=== PATIENT | male | born 1970 | race Caucasian/White ===

== ENCOUNTER → 2017-04-10 | Outpatient (CLI) | payer OTHER, SELFPAY | PROVIDERS: Visit Provider Family Medicine | DX: I10 Essential (primary) hypertension (principal) | CPT/HCPCS: 36415; 80053; 80061; 85025 ==

== ENCOUNTER → 2017-07-27 12:31 | Outpatient (CLI) | payer OTHER, SELFPAY ==
[2017-07-27 13:05] LABS: Hemoglobin A1C 6.2 % (0.0-7.0)
[2017-07-27 14:12] LABS: Blood Urea Nitrogen 14 mg/dL (7-18); Carbon Dioxide 26 mmol/L (21.0-32.0); Chloride 106 mmol/L (98-107); Chol/HDL Ratio 5.6 (1-3.5); Cholesterol 173 mg/dL (140-200); Creatinine,Serum 0.92 mg/dL (0.70-1.30); Estimated Glomerular Filt Rate 88 ml/min (>60); GFR (African American) 106 ML/MIN (>60); Glucose 85 mg/dL (74-106); HDL Cholesterol 31 mg/dL (27-67); LDL Cholesterol 100 mg/dL (0-130); Sodium 142 mmol/L (136-145); Triglycerides 210 mg/dL (30-200); VLDL Cholesterol 42 mg/dL (0-40)
== END ==
PROVIDERS: Visit Provider Family Medicine
DX: E11.9 Type 2 diabetes mellitus without complications (principal)
CPT/HCPCS: 36415; 80048; 80061; 83036

== ENCOUNTER → 2018-07-04 17:12 | Outpatient (CLI) | payer OTHER, SELFPAY ==
--- NOTE | 2018-07-04 17:30 | XR_ITS ---
EXAM: XR cervical spine 5V HISTORY: Neck pain ITS.REASON: CERVICALGIA ORDERING PHYSICIAN: Nas Huitron MD PATIENT AGE: 47 years COMPARISON: None FINDINGS: There is normal alignment. There is mild degenerative disc disease at C2-C3, C3-C4, C4-C5, C5-C6, and C6-C7 foraminal narrowing is present on the left at C3-C4 and C6-C7 and on the right at C3-C4. No fracture or dislocation. No lytic or blastic change. No evidence of cervical rib. IMPRESSION: Multilevel cervical spondylosis with degenerative disc disease and foraminal narrowing
== END ==
PROVIDERS: PCP Family Medicine; Visit Provider Family Medicine
DX: M54.2 Cervicalgia (principal)
CPT/HCPCS: 72050

== ENCOUNTER 2018-07-22 17:30 | Outpatient (RCR) | payer OTHER, SELFPAY ==
--- NOTE | 2018-07-14 17:49 | HMH.PTOPEV ---
PT Outpatient Evaluation Rehab PT Outpatient Evaluation Start: 07/14/18 17:23 Freq: Status: Active Protocol: Document 07/14/18 17:23 MAYAGENTRY (Rec: 07/14/18 17:48 SHUN [id number]) Electronically Signed By Owen Rueda, PT 07/14/18 17:23 Outpatient Therapy Subjective History Subjective History This is the initial Physical THerapy evaluation for Tang Corrigan. Pt is a 47 y /o male referred to PT for c/o cervical pain and SALAMANCA's. Pt reports insidious onset of pain ~ 6-7 weeks ago in sub- occipital area. Pt reports 3 rounds of prednisone packs which helped with pain, but pain returned 2-3 days s/p coming off medicine. Pt reports Ibuprofen helps w/ pain. Chief Complaint Pain Stiff Symptom Type Sharp Burning Symptoms Relieved By OTC Meds Prescription Meds Symptoms Aggravated By Physical Activity Lifting Prior Functional Limitations None Current Functional Limitations Reaching Lifting Recreation Activity Symptom Description Intermittent Level of pain today (0-10) 0 Pain scale - at its best (0-10) 0 Pain scale - at its worst (0-10) 8 Cervical Eval Palpation Cervical Muscles R Suboccipital L Suboccipital Cervical/Thoracic Palpation Findings Tenderness Trigger Point Muscle Guarding Passive Joint Mobility Cervical PIVM Dec: R C2/3 R C3/4 R C5/6 R C6/7 AROM Cervical Spine Extension Active Range of 45 Motion (degrees) Cervical Spine Flexion Active Range of 50 Motion (degrees) Cervical Spine Right Lateral Flexion 35 Active Range of Motion (degrees) Cervical Spine Left Lateral Flexion 35 Active Range of Motion (degrees) Cervical Spine Right Rotation Active 70 Range of Motion (degrees) Cervical Spine Left Rotation Active 70 Range of Motion (degrees) MMT Bilateral Deltoid (C5) 5 Normal Biceps Brachii Strength Grade 5 Normal Wrist Extension Strength Grade 5 Normal Triceps Brach
== END 2018-07-22 17:35 | disposition home or self-care (01) ==
LOC: PT 17:30
PROVIDERS: Visit Provider Family Medicine
DX: M54.2 Cervicalgia (principal)
CPT/HCPCS: 97010; 97012; 97014; 97110; 97140; 97163; G0283

== ENCOUNTER → 2018-10-24 08:24 | Outpatient (CLI) | payer SELFPAY ==
--- NOTE | 2018-10-24 08:53 | CT_ITS ---
CT heart w calcium score INDICATION: Current smoker ITS.REASON: z ORDERING PHYSICIAN: Beka Snow MD PATIENT AGE: 48 years COMPARISON: None TECHNIQUE: Contrast Used:None Oral Contrast: None Axial images were obtained. Sagittal and coronal reformatted images are reviewed as well. All CT scans at the facility use one or more dose reduction, viz: automated exposure control, ma/kV adjustment per patient size (including targeted exams where dose is matched to indication, i.e. head), or iterative reconstruction technique. FINDINGS: Coronary artery calcium score is 179 indicating moderate plaque burden and high cardiovascular disease risk. There are mild atelectatic or fibrotic changes in the lower lobes. Small amount of gas is present in the distal esophagus which may be seen with reflux. IMPRESSION: Coronary artery calcium score 179
== END ==
PROVIDERS: PCP Family Medicine; Visit Provider Internal Medicine Cardiovascular Disease
DX: R06.02 Shortness of breath (principal)
CPT/HCPCS: 75571

== ENCOUNTER → 2018-11-24 16:43 | Outpatient (CLI) | payer OTHER, SELFPAY ==
--- NOTE | 2018-11-24 16:47 | XR_ITS ---
EXAM: XR lumbar spine min 4V HISTORY: Back pain ITS.REASON: SPONDYLOSIS WITHOUT MYELOPATHY ORDERING PHYSICIAN: Nas Huitron MD PATIENT AGE: 48 years COMPARISON: FINDINGS: There is normal alignment. No fracture or dislocation is evident. Degenerative disc disease is present at L3-L4 L4-L5 and L5-S1. There are mild facet hypertrophic changes at L4-L5 and S1. IMPRESSION: Lumbar spondylosis with degenerative disc disease L3-S1 and mild facet arthritic changes L4-L5 and S1
== END ==
PROVIDERS: PCP Family Medicine; Visit Provider Family Medicine
DX: M47.816 Spondylosis without myelopathy or radiculopathy, lumbar region (principal)
CPT/HCPCS: 72110

== ENCOUNTER 2020-04-25 13:49 | Emergency (ER) | payer BC, SELFPAY ==
[2020-04-25 15:15] VITALS: BP 133/78; PULSE 86; RESP 20; TEMP 36.4; O2SAT 97; BMI 35.9
--- NOTE | 2020-04-25 15:29 | HMH.EDUTC ---
[facility] [place] Disposition Clinical Impression: Exposure to COVID-19 virus Disposition: Home, Self-Care Condition on Discharge: Good Instructions: Preventing the Spread of Coronavirus Discharge Instructions Additional Instructions: Drink plenty of fluids. Take tylenol or ibuprofen for pain or fever. Take the medications as directed. Follow up with your regular doctor. GO TO THE ER FOR ANY WORSENING SYMPTOMS Referrals: Nas Huitron MD [Primary Care Provider] - Time of Disposition: 15:30 Medical Decision Making - Medical Records Medical records reviewed: No: I reviewed the patient's medical records. - Martinez Inquiry Pt receiving controlled substance: No Vital Signs: 04/25/20 15:15 04/25/20 15:42 Temperature 97.5 F L 97.5 F L Temperature Source Oral Pulse Rate 86 Pulse Rate [Left Brachial] 86 Respiratory Rate 20 20 Blood Pressure 133/78 Blood Pressure [Left Arm] 133/78 Blood Pressure Mean [Left Arm] 96 Blood Pressure Source [Left Arm] Automatic Cuff Blood Pressure Position [Left Arm] Sitting 02 Sat by Pulse Oximetry 97 Oxygen Delivery Method Room Air Orders (Tests/Meds): ORDERS Category Date Time Status Covid-19 Nasal PCR ([facility]) Routine Lab 04/25/20 15:20 Received [facility] [place] HPI - General Stated complaint: covid exposure Time Seen by Provider: 04/25/20 15:29 Mode of Arrival: Ambulatory Source of Information: Patient Limitations: No Limitations Description of Symptoms (Recalled from Triage Doc. by RN): COVID TEST D/T EXPOSURE. DENIES SYMPTOMS HEENT Symptoms (Recalled from RN notes): No Resp Symptoms (Recalled from RN notes): No Skin Symptoms (Recalled from RN notes): No MS Symptoms (Recalled from RN notes): No Functional Status (Recalled from RN notes): WNL - History of Present Illness Provider Complaint: He states that he was exposed to covid thru his work. He denies any symptoms so far. - Related Data Home Medications Medication Instructions Recorded Confirmed amlodipine 5 mg tablet PO 90 Days 05/13/17 lisinopril 20 mg tablet PO 90 Days 05/13/17 lisinopril 20 PO 90 Days 05/13/17 mg-hydrochlorothiazide 25 mg tablet valacyclovir 1 gram tablet PO 2 Days 05/13/17 Previous Rx's Medication Instructions Recorded Methocarbamol [Robaxin 500mg Tab] 500 mg PO BIDP PRN #30 tab 04/17/19 Naproxen [Naproxen 500mg tab] 500 mg PO BIDP PRN #30 tab 04/17/19 Allergies Allergy/AdvReac Type Severity Reaction Status Date / Time Penicillins Allergy Unverified 05/13/17 15:08 - Worker's Comp Is this a Worker's Comp case?: No H History - Hepatitis A Screen Drug use history?: No High risk sexual behaviors?: No History of sexually transmitted infection?: No Currently employed?: No Childcare worker?: No Do you have indoor plumbing?: Yes Do you have electricity?: Yes Attestation statement:: This patient has been screened for Hepatitis A risk factors. I have reviewed the patient's past medical history: Yes Medical History: Reports:: Hypertension Comment: ZIGGY Comment: Dental - Social History Smoking Status: Current every day smoker Tobacco Type: cigarettes # Packs/Day (cigarettes): 1 Alcohol Intake: never Substance Use Type: denies use Occupational Status: other Family Hx:: Coronary Artery Disease, Stroke, Diabetes, Hypertension ROS Obtained: Yes All systems reviewed & no additional complaints - Constitutional Constitutional: Reports system reviewed and no additional complaints, except as docu - Eyes Eyes: Reports system reviewed and no additional complaints, except as docu - ENT Ears, Nose, Mouth, and Throat: Reports system reviewed and no additional complaints, except as docu - Cardiovascular Cardiovascular: Reports system reviewed and no additional complaints, except as docu - Respiratory Respiratory: Reports system reviewed and no additional complaints, except as docu - Gastrointestinal Gastrointestingal: Reports: system r
[2020-04-25 15:42] VITALS: BP 133/78; PULSE 86; RESP 20; TEMP 36.4; O2SAT 97
--- NOTE | 2020-04-26 10:25 | PC.NURSE ---
notified of positive COVID
== END 2020-04-25 15:44 | disposition home or self-care (01) ==
PROVIDERS: Emergency Provider Nurse Practitioner Family; PCP Family Medicine
DX: U07.1 COVID-19 (principal); I10 Essential (primary) hypertension; F17.210 Nicotine dependence, cigarettes, uncomplicated; Z88.0 Allergy status to penicillin; Z79.899 Other long term (current) drug therapy
CPT/HCPCS: 99202; G0463; U0003

== ENCOUNTER → 2021-01-09 10:13 | Outpatient (CLI) | payer OTHER, SELFPAY | PROVIDERS: PCP Family Medicine; Visit Provider Nurse Practitioner | DX: Z20.822 Contact with and (suspected) exposure to COVID-19 (principal); U07.1 COVID-19 | CPT/HCPCS: C9803; U0003; U0005 ==

== ENCOUNTER → 2021-01-20 09:36 | Outpatient (CLI) | payer OTHER, SELFPAY | PROVIDERS: PCP Family Medicine; Visit Provider Nurse Practitioner | DX: Z20.822 Contact with and (suspected) exposure to COVID-19 (principal); U07.1 COVID-19 | CPT/HCPCS: C9803; U0003; U0005 ==

== ENCOUNTER → 2021-01-23 10:18 | Outpatient (CLI) | payer OTHER, SELFPAY | PROVIDERS: PCP Family Medicine; Visit Provider Nurse Practitioner | DX: Z20.822 Contact with and (suspected) exposure to COVID-19 (principal); U07.1 COVID-19 | CPT/HCPCS: C9803; U0003; U0005 ==

== ENCOUNTER → 2021-01-27 10:50 | Outpatient (CLI) | payer OTHER, SELFPAY ==
[2021-01-27 12:25] LABS: Coronavirus 19 IgG Antibody Positive (Negative); Coronavirus 19 IgM Antibody Negative (Negative)
== END ==
PROVIDERS: PCP Family Medicine; Visit Provider Family Medicine
DX: Z20.822 Contact with and (suspected) exposure to COVID-19 (principal); U07.1 COVID-19
CPT/HCPCS: 36415; 86328

== ENCOUNTER 2021-12-05 10:12 | Inpatient (IN) | payer OTHER, SELFPAY ==
[2021-12-05] VITALS (19 sets, daily range): BP systolic 126–157; BP diastolic 64–99; PULSE 64–90; RESP 13–20; TEMP 36.7–36.9; O2SAT 95–99; BMI 38.7; BMI 38.4
--- NOTE | 2021-12-05 10:33 | XR_ITS ---
FINAL REPORT CLINICAL HISTORY: Abnormal stress test FINDINGS: SINGLE-VIEW CHEST The heart size is normal. The mediastinum is normal. The lungs are clear. There is no pneumothorax. IMPRESSION: No acute cardiopulmonary process. Reviewed, Interpreted and Dictated by Kennedy De La Garza MD Transcribed by Puja Lind Authenticated and [facility]
[2021-12-05 10:42] LABS: Chloride 100 mmol/L (98-107); Potassium 4.3 mmoL/L (3.5-5.1); Sodium 135 mmol/L (136-145)
[2021-12-05 10:44] LABS: Basophils # 0.1 K/mm3 (0-0.2); Basophils % 1.2 % (0.1-2.0); Eosinophils # 0.1 K/mm3 (0.0-0.4); Eosinophils % 1.8 % (0.1-12.0); Hematocrit 52.3 % (42.0-52.0); Hemoglobin 15.7 g/dL (14.1-18.0); Lymphocytes # 1.5 K/mm3 (0.7-4.5); Lymphocytes % 22.4 % (10-50); Mean Corpuscular Hemoglobin 28.2 pg (27.0-31.2); Mean Corpuscular Volume 93.9 fl (80-94); Mean Platelet Volume 8.8 fl (7.4-10.4); Monocytes # 0.5 K/mm3 (0.1-1.0); Monocytes % 7.4 % (1.7-9.3); Neutrophils # 4.5 K/mm3 (1.8-7.8); Neutrophils % 67.3 % (37.0-80.0); Platelet Count 275 K/mm3 (142-424); Red Blood Count 5.58 M/mm3 (4.60-6.20); Red Cell Distribution Width 14.2 % (11.5-17.5); White Blood Count 6.7 K/mm3 (4.8-10.8)
[2021-12-05 10:45] LABS: Alanine Aminotransferase 41 U/L (12-78); Albumin Level 4.4 g/dl (3.5-5.0); Albumin/Globulin Ratio 1.5 (1.1-1.8); Alkaline Phosphatase 156 U/L (38-126); Anion Gap 8.3 mEq/L (5-15); Aspartate Amino Transferase 39 U/L (17-59); Bilirubin,Total 0.2 mg/dl (0.2-1.3); Blood Urea Nitrogen 18 mg/dl (9-20); Carbon Dioxide 31 mmol/L (22.0-30.0); Creatinine Clearance Estimated 164 mL/min (50-200); Estimated Glomerular Filt Rate 88 ml/min (>60); GFR (African American) 107 ML/MIN (>60); Total Protein,Serum 7.4 g/dl (6.3-8.2)
[2021-12-05 10:46] LABS: Calcium 8.8 mg/dl (8.4-10.2); Glucose 309 mg/dl (74-100)
--- NOTE | 2021-12-05 10:53 | HMH.EDGENADL ---
ED Disposition Clinical Impression: Acute chest pain Disposition: Xfer Short-Term Hosp Condition on Discharge: Good Referrals: Nas Huitron MD [Primary Care Provider] - - Critical Care Critical Care Time: No Attestation: On 12/05/21, the high probability of a clinically significant, sudden or life threatening deterioration of the following system(s) required my full and direct attention, intervention and personal management. The time I documented below is in addition to time spent performing reported procedures but includes the following listed in this critical care notation. Medical Decision Making - Medical Records Medical records reviewed: Yes: I reviewed the patient's medical records. - Martinez Inquiry Pt receiving controlled substance: No Vital Signs: 12/05/21 10:14 12/05/21 10:22 12/05/21 10:31 Temperature 98.1 F Temperature Source Oral Pulse Rate 88 86 Pulse Rate [Right Radial] 87 Respiratory Rate 13 18 18 Blood Pressure 144/99 H 157/82 H Blood Pressure [Right Arm] 144/99 H Blood Pressure Mean 117 111 Blood Pressure Mean [Right Arm] 114 Blood Pressure Source [Right Arm] Automatic Cuff Blood Pressure Position [Right Arm] Sitting 02 Sat by Pulse Oximetry 98 98 98 Oxygen Delivery Method Room Air - Lab Data Lab Results 12/05/21 10:25: WBC 6.7, RBC 5.58, Hgb 15.7, Hct 52.3 H, MCV 93.9, MCH 28.2, MCHC 30.0 L, RDW 14.2, Plt Count 275, MPV 8.8, Neut % (Auto) 67.3, Lymph % (Auto) 22.4, [place] % (Auto) 7.4, Eos % (Auto) 1.8, Baso % (Auto) 1.2, Neut # (Auto) 4.5, Lymph # (Auto) 1.5, [place] # (Auto) 0.5, Eos # (Auto) 0.1, Baso # (Auto) 0.1 12/05/21 10:25: Sodium 135 L, Potassium 4.3, Chloride 100, Carbon Dioxide 31 H, Anion Gap 8.3, BUN 18, Creatinine 0.90, Estimated Creat Clear 164, Estimated GFR 88, Est GFR ( Amer) 107, Glucose 309 H, Calcium 8.8, Total Bilirubin 0.2, AST 39, ALT 41, Alkaline Phosphatase 156 H, Total Protein 7.4, Albumin 4.4, Globulin 3.0, Albumin/Globulin Ratio 1.5 Result diagrams: 12/05/21 10:25 12/05/21 10:25 Orders (Tests/Meds): ED MEDICATIONS Generic Name Dose Route Start Last Admin Trade Name Juventino PRN Reason Stop Dose Admin Sodium Chloride 10 ml 12/05/21 10:33 Sodium Chloride 0.9% 10ml Flush Syringe IV 01/04/22 10:32 NEEDED PRN Maintain IV Site ORDERS Category Date Time Status XR chest portable Stat Exams 12/05/21 10:33 Taken Comprehensive Metabolic Panel Stat Lab 12/05/21 10:25 Results Troponin I Q3H Lab 12/05/21 13:45 Ordered Troponin I Q3H Lab 12/05/21 16:45 Ordered Troponin I Stat Lab 12/05/21 10:25 Results - KELVIN Score for Non-Stemi Age of Patient: 50-59 years old Heart Rate: 70-89 bpm Systolic Blood Pressure: 140-159 mmHg Serum Creatinine: 0.80-1.19 mg/dl CHF Killip Class: I-No CHF Other Risk Factors: None Non-Stemi Risk Score: 81 General Adult HPI - General Chief complaint: Recheck/Abnormal Lab/Rx Stated complaint: abnormal stress test Time Seen by Provider: 12/05/21 10:54 Mode of Arrival: Ambulatory Limitations: No Limitations Description of Symptoms (Recalled from ER Triage Doc. by RN): Pt sent to ED following an abnormal stress test this AM - History of Present Illness HPI narrative: Presents with chest pain that began earlier today while he was undergoing a stress test. The stress test was markedly abnormal per the physician events and promotions assistant conducting the test to spoke directly with me regarding this patient. The patient is presently pain-free. He states he been having intermittent chest pain for the last several weeks that is exertional in nature with radiation to both arms with associated diaphoresis and dyspnea. He has multiple risk factors including high blood pressure and high cholesterol and diabetes and poor former tobacco use. - Related Data Home Medications Medication Instructions Recorded Confirmed amlodipine 5 mg tablet PO 90 Days 05/13/17 lisinopril 20
--- NOTE | 2021-12-05 10:54 | PC.NURSE ---
ISAAC CAO TO SPEAK TO DR POWELL
--- NOTE | 2021-12-05 10:56 | PC.NURSE ---
CALLED [facility] FOR CONSULT (SHADIA SILVERMAN)
[2021-12-05 10:57] LABS: Troponin I 0.05 ng/ml (0.00-0.034)
--- NOTE | 2021-12-05 11:15 | PC.NURSE ---
dr piña at bedside
--- NOTE | 2021-12-05 11:30 | PC.NURSE ---
pt placed in gown and shaved. Family at bs
[2021-12-05 11:44] LABS: Coronavirus 19, PCR Not Detected (NotDetected); Influenza A, PCR Not Detected (NotDetected); Influenza B, PCR Not Detected (NotDetected)
--- NOTE | 2021-12-05 11:49 | HMH.PHAINT ---
MEDICATION RECONCILIATION COMPLETED ON PATIENT USING EXTERNAL FILL HISTORY FROM PHARMACY. -BHUMIKA HAYES, LINND
--- NOTE | 2021-12-05 12:19 | HMH.CNCARD ---
History of Present Illness Consult date: 12/05/21 Requesting physician: Arcadio Baca Consult reason: chest pain Chief complaint: chest pain History of present illness: This is a 51-year-old white gentleman who presented to [facility] today to undergo Myoview stress testing. During his stress test the patient had markedly abnormal EKG changes and was taken to the emergency department after getting 2 nitro sprays. The patient was having chest pain that radiates to both arms and he describes as a pressure sensation. The nitro spray did resolve his chest pain. He has had no recurrence of his chest pain while in the emergency department. Review of the EKG during his stress test shows that the patient did have ST elevation while walking. This obviously occurred with exertion. It did improve with the nitro spray. It is associated with shortness of breath and diaphoresis. The patient does have a history of hypertension and hyperlipidemia. He also has diabetes and is a former tobacco user. He denies any fever, chills, nausea, vomiting, diarrhea, PND or orthopnea. [facility] History Medical History: Reports:: Diabetes Mellitus Type 2, Hypertension *Have you ever received a pneumonia vaccine?: No *Have you received a flu vaccine this season?: No - *Social History Smoking Status: Former smoker Tobacco Type: cigarettes # Packs/Day (cigarettes): 1 Alcohol Intake: never Substance Use Type: denies use *Occupational Status:: other *Travel in the last 8 weeks: None Family Hx:: Coronary Artery Disease, Stroke, Diabetes, Hypertension Meds Home Medications Medication Instructions Recorded Confirmed Type amlodipine 5 mg tablet 5 mg PO DAILY 90 Days 05/13/17 12/05/21 History lisinopril 20 1 tab PO DAILY 90 Days 05/13/17 12/05/21 History mg-hydrochlorothiazide 25 mg tablet Fenofibrate Nanocrystallized 160 mg PO DAILY 12/05/21 12/05/21 History [Fenofibrate] Indomethacin [Indocin 25mg capsule] 25 mg PO TIDWMEAL 12/05/21 12/05/21 History Metformin HCl 500 mg PO BIDWMEAL 12/05/21 12/05/21 History lisinopriL [Zestril 20mg tab] 20 mg PO HS 12/05/21 12/05/21 History Allergies Allergy/AdvReac Type Severity Reaction Status Date / Time Penicillins Allergy Verified 12/05/21 11:22 Exam Vital signs and Labs for Last 24 Hours: Temp Pulse Resp BP Pulse Ox 98.1 F 86 18 157/82 H 98 12/05/21 10:14 12/05/21 10:31 12/05/21 10:31 12/05/21 10:31 12/05/21 10:31 Laboratory Results - last 24 hr 12/05/21 10:25: WBC 6.7, RBC 5.58, Hgb 15.7, Hct 52.3 H, MCV 93.9, MCH 28.2, MCHC 30.0 L, RDW 14.2, Plt Count 275, MPV 8.8, Neut % (Auto) 67.3, Lymph % (Auto) 22.4, [place] % (Auto) 7.4, Eos % (Auto) 1.8, Baso % (Auto) 1.2, Neut # (Auto) 4.5, Lymph # (Auto) 1.5, [place] # (Auto) 0.5, Eos # (Auto) 0.1, Baso # (Auto) 0.1 12/05/21 10:25: Sodium 135 L, Potassium 4.3, Chloride 100, Carbon Dioxide 31 H, Anion Gap 8.3, BUN 18, Creatinine 0.90, Estimated Creat Clear 164, Estimated GFR 88, Est GFR ( Amer) 107, Glucose 309 H, Calcium 8.8, Total Bilirubin 0.2, AST 39, ALT 41, Alkaline Phosphatase 156 H, Troponin I 0.05 H, Total Protein 7.4, Albumin 4.4, Globulin 3.0, Albumin/Globulin Ratio 1.5 I & O for Last 24 hours: Intake & Output 12/02/21 12/03/21 12/04/21 12/05/21 23:59 23:59 23:59 23:59 Weight 270 lb - Constitutional no acute distress, obese - *Routine HEENT Exam Head: Present: normocephalic, atraumatic Eye: Present: EOMI, PERRL ENT: Present: mucous membranes moist - *Routine Neck Exam Present: supple, full ROM, normal carotid upstroke. Absent: JVD, carotid bruit, lymphadenopathy - *Routine Respiratory Exam Present: CTA bilaterally - *Routine Cardiovascular Exam Present: RRR, Normal S1, Normal S2. Absent: murmur - *Routine Abdominal Exam Present: soft, normoactive bowel sounds. Absent: tenderness, distended - *Routine Extremities Exam Present: full ROM, pulses intact, normal capillary refill. Absen
[2021-12-05 14:07] LABS: CATHL Activated Clotting Time 380 SEC (74-125)
--- NOTE | 2021-12-05 18:16 | HMH.HP ---
*Admission Date: 12/05/21 <Puja Pat - 12/05/21 18:40> *Chief complaint: Chest pain <Puja Pat - 12/05/21 18:40> *History of present illness: Mr. Corrigan is a 51-year-old male with a history of hypertension, type 2 diabetes mellitus mellitus, and chronic neck pain who was cleaning out a warehouse about 2 months ago and became very hot and clammy. He chalked this up to being a heat stroke. Ever since that event he had random episodes of chest pain. The pain would start near his sternum and radiate into the neck and down both arms. He also had spells with coughing and felt like he would vomit and did dry heave with 1 episode. With this visit to [facility] laboratory data showed normal liver function studies, normal renal function, and normal electrolytes. Blood sugar was noted to be 225 with an A1c of 12. Cholesterol profile showed total cholesterol 172 with HDL of 21 and LDL of 83. He was scheduled for a cardiac stress test at this visit. Today during his Myoview stress test he had markedly abnormal EKG changes with his anterior chest discomfort. He describes the pain as being severe across his anterior chest radiating up into the neck and down both arms. He was taken to the emergency room department for evaluation after administration of 2 nitro sprays. His chest pain did resolve. He had no recurrence of the chest pain while in the ER. EKG during the stress test revealed ST elevation while walking and improved after the nitro spray. Pain was associated with shortness of breath and diaphoresis. He was taken straight to the [facility] with the following results: [facility] shows: The left main artery Has a distal 20% stenosis The left anterior descending artery Has proximal and mid vessel 40 and 50% stenoses followed by additional 40% stenoses. Large first diagonal artery has a proximal 50% stenosis The circumflex artery Is a nondominant and gives rise to a moderate sized ramus intermedius which has proximal 30% stenosis. The nondominant circumflex artery has a proximal concentric 50% stenosis The right coronary artery Is a massively large dominant vessel and has a critical proximal 90% stenosis which is preceded by 50% stenoses with additional 50% stenoses distally. A large posterior descending artery has mid vessel 30 and 40% stenosis while the posterior lateral branch has proximal tandem 70% stenosis The ARITA ventriculogram reveals Normal 65% The left ventricular end-diastolic pressure 20 mmHg IMPRESSION Critical coronary artery disease as described above Persistent moderate to severe disease as described above Normal ejection fraction Elevated LVEDP PLAN 1. Brilinta 90 twice daily plus aspirin 81 mg daily 2. LDL less than 55 to be achieved with high intensity statin 3. Aggressive control of risk factors 4. Cardiac rehabilitation 5. Recommend sleep study 6. CAROLYN inhibitor's and beta-blockers At the time of this exam patient is sitting up in the bed and has completed his dinner. He enjoyed the food. He denies chest pain and shortness of breath. <Puja Pat 12/05/21 18:40> [facility] History Medical History: Reports:: Coronary Artery Disease, Diabetes Mellitus Type 2, Hyperlipidemia, Hypertension, Myocardial Infarction <Puja Pat 12/05/21 18:40> *Have you ever received a pneumonia vaccine?: No <Puja Pat 12/05/21 18:40> *Have you received a flu vaccine this season?: No <Puja Pat 12/05/21 18:40> Other Surgeries: Yes: Cardiac Catheterization, Coronary Stent <Puja Pat 12/05/21 18:40> Comment: Teeth extraction <Puja Pat 12/05/21 18:40> - *Social History Last grade of school completed: High school graduate <Puja Pat 12/05/21 18:40> Smoking Status: Former smoker <Puja Pat 12/05/21 18:40> Tobacco Type: cigarettes <Puja Pat 12/05/21 18:40> # Packs/Day (cigarettes): 1 <Puja Pat 12/05/21 18:40> Alcohol Intake: never <Puja Pat 12/05/21 18:
--- NOTE | 2021-12-05 18:50 | PC.NURSE ---
NEW ADMIT TODAY FROM SALES FLOOR ASSOCIATE. AOX4, RIGHT RADIAL SITE WITH TELFA TEGADERM DSG C/D/I. DOES NOT REQUIRE O2 SUPPORT. TOLERATING DIET WELL.
[2021-12-06] VITALS: BP 128/77; PULSE 56; PULSE 70; RESP 16; TEMP 36.9; O2SAT 100
--- NOTE | 2021-12-06 01:53 | PC.NURSE ---
Patient has been a&o x4. Cath site to rt radial is CDI with no hematoma noted. Patient has been NSR on tele. VSS. Patient requesting to be placed on 3l nc while sleeping r/t usually using a cpap at home. Early entry r/t scheduled downtime.
[2021-12-06 04:00] VITALS: BP 109/72; PULSE 70; RESP 18; TEMP 36.4; O2SAT 98; BMI 38.5
[2021-12-06 08:00] VITALS: BP 145/80; PULSE 91; RESP 20; TEMP 36.5; O2SAT 95
[2021-12-06 08:47] LABS: Alkaline Phosphatase 125 U/L (38-126); Aspartate Amino Transferase 27 U/L (17-59); Bilirubin,Direct 0.2 mg/dl (0.0-0.4); Bilirubin,Indirect 0.2 mg/dL (0.0-0.9); Bilirubin,Total 0.4 mg/dl (0.2-1.3); Bilirubin,Unconjugated 0.1 mg/dL (0.0-1.1); Chol/HDL Ratio 8.9 (1-3.5); Cholesterol 205 mg/dl (140-200); HDL Cholesterol 23 mg/dl (40-60); Total Protein,Serum 6.6 g/dl (6.3-8.2)
[2021-12-06 08:48] LABS: Triglycerides 749 mg/dl (30-150)
[2021-12-06 09:15] LABS: Alanine Aminotransferase 38 U/L (12-78)
[2021-12-06 09:45] LABS: Anion Gap 11.4 mEq/L (5-15); Blood Urea Nitrogen 14 mg/dl (9-20); Calcium 9.2 mg/dl (8.4-10.2); Carbon Dioxide 26 mmol/L (22.0-30.0); Chloride 102 mmol/L (98-107); Creatinine Clearance Estimated 151 mL/min (50-200); Estimated Glomerular Filt Rate 78 ml/min (>60); GFR (African American) 95 ML/MIN (>60); Glucose 284 mg/dl (74-100); Potassium 4.4 mmoL/L (3.5-5.1); Sodium 135 mmol/L (136-145)
[2021-12-06 10:06] LABS: Hemoglobin 15.4 g/dL (14.1-18.0); Mean Corpuscular HGB Conc 34.2 g/dL (31.8-35.4); Mean Corpuscular Volume 84.6 fl (80-94); Red Blood Count 5.32 M/mm3 (4.60-6.20); White Blood Count 7.5 K/mm3 (4.8-10.8)
[2021-12-06 10:07] LABS: Platelet Count 247 K/mm3 (142-424); Red Cell Distribution Width 13.4 % (11.5-17.5)
[2021-12-06 10:08] LABS: Basophils # 0.1 K/mm3 (0-0.2); Basophils % 0.7 % (0.1-2.0); Eosinophils # 0.2 K/mm3 (0.0-0.4); Eosinophils % 2.1 % (0.1-12.0); Lymphocytes # 1.6 K/mm3 (0.7-4.5); Lymphocytes % 20.7 % (10-50); Monocytes # 0.4 K/mm3 (0.1-1.0); Monocytes % 5.8 % (1.7-9.3); Neutrophils # 5.3 K/mm3 (1.8-7.8); Neutrophils % 70.8 % (37.0-80.0)
--- NOTE | 2021-12-06 11:55 | P.CONPHA_ITS ---
[facility] Md Pediatric Allergist Discharge Med Cytogenetic Technician: Tang Corrigan has received discharge medication counseling on the following medications: -ASPIRIN (BLOOD THINNER, TAKE DAILY, BLEED/BRUISE RISK) -ATORVASTATIN (FOR CHOLESTEROL, TAKE AT BEDTIME, WATCH FOR MUSCLE PAIN/WEAKNESS) -BRILINTA (BLOOD THINNER, TWICE DAILY, BUMP HEAD = GO TO ER TO RULE OUT HEAD BLEED, BRUISE/BLEED RISK, BLEED LOCATION WILL CHANGE APPEARANCE) -CARVEDILOL (FOR BP/HR, TWICE DAILY, WATCH FOR SLOWED HR, DIZZINESS, LIGHTHEADEDNESS, HEADACHE) -LISINOPRIL/HCTZ (PATIENT WAS ALREADY TAKING) -GLIMEPIRIDE (DAILY, TAKE WITH BREAKFAST, MAY WANT TO HOLD IF NOT EATING, WATCH FOR SIGNS OF LOW BLOOD SUGAR) -STOP THE FOLLOWING: FENOFIBRATE, AMLODIPINE PATIENT AND VERBALIZED NO QUESTIONS AT THIS TIME.
--- NOTE | 2021-12-06 11:58 | EXP.CARD.PN ---
Subjective Subjective Date: 12/06/21 Time: 09:30 Interval history: This is a 51-year-old gentleman who came to the hospital yesterday to undergo Myoview stress testing. The patient had ST elevation while walking on the treadmill and was taken to the cardiac catheterization laboratory. The patient underwent stenting to the right coronary artery with a drug-eluting stent. The patient will be on dual antiplatelet with Brilinta and aspirin. This morning he denies any chest pain or pressure he denies any shortness of breath or edema. He denies any fever, chills, nausea, vomiting, diarrhea, PND or orthopnea. Exam Data for Last 24 hours Vital signs and Labs for Last 24 Hours: Temp Pulse Resp BP Pulse Ox 97.7 F 91 H 20 145/80 H 95 12/06/21 08:00 12/06/21 08:00 12/06/21 08:00 12/06/21 08:00 12/06/21 08:00 Laboratory Results - last 24 hr 12/05/21 11:10: SARS-CoV-2 (PCR) Not detected, Influenza A Untype (PCR) Not detected, Influenza Type B (PCR) Not detected 12/05/21 13:28: Activated Clotting Time 380 H* 12/06/21 06:16: WBC 7.5, RBC 5.32, Hgb 15.4, Hct 45.0, MCV 84.6, MCH 29.0, MCHC 34.2, RDW 13.4, Plt Count 247, MPV 8.0, Neut % (Auto) 70.8, Lymph % (Auto) 20.7, [place] % (Auto) 5.8, Eos % (Auto) 2.1, Baso % (Auto) 0.7, Neut # (Auto) 5.3, Lymph # (Auto) 1.6, [place] # (Auto) 0.4, Eos # (Auto) 0.2, Baso # (Auto) 0.1 12/06/21 06:16: Sodium 135 L, Potassium 4.4, Chloride 102, Carbon Dioxide 26, Anion Gap 11.4, BUN 14, Creatinine 1.00, Estimated Creat Clear 151, Estimated GFR 78, Est GFR ( Amer) 95, Glucose 284 H, Calcium 9.2 12/06/21 06:16: Total Bilirubin 0.4, Direct Bilirubin 0.2, Conjugated Bilirubin 0.0, Indirect Bilirubin 0.2, Unconjugated Bilirubin 0.1, AST 27 D, ALT 38, Alkaline Phosphatase 125, Total Protein 6.6, Albumin 4.0, Triglycerides 749 H, Cholesterol 205 H, HDL Cholesterol 23 L, Cholesterol/HDL Ratio 8.9 H I & O for Last 24 hours: Intake & Output 12/03/21 12/04/21 12/05/21 12/06/21 23:59 23:59 23:59 23:59 Intake Total 480 / 480 480 / 480 Output Total 500 / 500 Balance -20 / - 480 / 480 Weight 275 lb 7 oz Constitutional Constitutional: no acute distress and obese *Routine HEENT Exam Head: Present normocephalic and atraumatic ENT: Present mucous membranes moist *Routine Neck Exam Neck: Present supple, full ROM and normal carotid upstroke; Absent JVD, carotid bruit or lymphadenopathy *Routine Respiratory Exam Respiratory: Present CTA bilaterally, normal respiratory effort, able to speak in complete sentences and symmetric chest movement *Routine Cardiovascular Exam Cardiovascular: Present RRR, Normal S1 and Normal S2; Absent murmur or gallop *Routine Abdominal Exam Abdominal: Present soft and normoactive bowel sounds; Absent tenderness or distended *Routine Extremities Exam Extremities: Present full ROM, pulses intact and normal capillary refill; Absent cyanosis, clubbing or edema *Routine Skin Exam Skin: Present intact and warm; Absent erythema *Routine Neurological Exam Neurological: Present alert, oriented X3 and CN II-XII intact; Absent sensory deficit or motor deficit Routine Psychiatric Exam Psychiatric: Present normal affect Progress Note: A&P Assessment and plan (1) Coronary artery disease: Status: Acute (2) Abnormal stress ECG: Status: Acute (3) Exertional chest pain: Status: Acute (4) Hypertension: Status: Acute (5) Former tobacco use: Status: Acute (6) Angina pectoris: Status: Acute (7) Type 2 diabetes mellitus: Status: Chronic (8) Uncontrolled diabetes mellitus: Status: Acute (9) Status post coronary artery stent placement: Status: Acute Assessment and Plan Assessment and Plan for All Diagnoses:: Plan: 1. The patient underwent left cardiac catheterization yesterday with stenting to the right coronary artery. He will be on Brilinta and aspirin for dual antiplatelet therapy. His coronary artery disease stable. 2. T
[2021-12-06 12:00] VITALS: PULSE 78
--- NOTE | 2021-12-06 12:14 | EXP.ACUTE.PN ---
Documented by User: ASHWINI Landa 12/06/21 12:20 Subjective *Date: 12/06/21 *Time: 12:14 Interval history: The patient is feeling well this morning. He denies any chest pain or shortness of breath. He slept off and on throughout the night and is anxious to go home today. He is tolerating a diet. Medical Exam Vital signs and Labs for Last 24 Hours: Temp Pulse Resp BP Pulse Ox 97.7 F 91 H 20 145/80 H 95 12/06/21 08:00 12/06/21 08:00 12/06/21 08:00 12/06/21 08:00 12/06/21 08:00 Laboratory Results - last 24 hr 12/05/21 11:10: SARS-CoV-2 (PCR) Not detected, Influenza A Untype (PCR) Not detected, Influenza Type B (PCR) Not detected 12/05/21 13:28: Activated Clotting Time 380 H* 12/06/21 06:16: WBC 7.5, RBC 5.32, Hgb 15.4, Hct 45.0, MCV 84.6, MCH 29.0, MCHC 34.2, RDW 13.4, Plt Count 247, MPV 8.0, Neut % (Auto) 70.8, Lymph % (Auto) 20.7, [place] % (Auto) 5.8, Eos % (Auto) 2.1, Baso % (Auto) 0.7, Neut # (Auto) 5.3, Lymph # (Auto) 1.6, [place] # (Auto) 0.4, Eos # (Auto) 0.2, Baso # (Auto) 0.1 12/06/21 06:16: Sodium 135 L, Potassium 4.4, Chloride 102, Carbon Dioxide 26, Anion Gap 11.4, BUN 14, Creatinine 1.00, Estimated Creat Clear 151, Estimated GFR 78, Est GFR ( Amer) 95, Glucose 284 H, Calcium 9.2 12/06/21 06:16: Total Bilirubin 0.4, Direct Bilirubin 0.2, Conjugated Bilirubin 0.0, Indirect Bilirubin 0.2, Unconjugated Bilirubin 0.1, AST 27 D, ALT 38, Alkaline Phosphatase 125, Total Protein 6.6, Albumin 4.0, Triglycerides 749 H, Cholesterol 205 H, HDL Cholesterol 23 L, Cholesterol/HDL Ratio 8.9 H I & O for Labs for Last 24 Hours: Intake & Output 12/04/21 12/05/21 12/06/21 12/07/21 11:59 11:59 11:59 11:59 Intake Total 960 / 960 Output Total 500 / 500 Balance 460 / 460 Weight 270 lb 275 lb 5.718 oz Constitutional: no acute distress Respiratory: CTA bilaterally Cardiac: Reg Rate and Rhythm GI: soft, tenderness or normal bowel sounds Extremities: edema Skin: intact Neuro: alert Assessment and Plan *Assessment and plan (1) Status post coronary artery stent placement: Status: Acute Category: Surgical Code(s): Z95.5 - Presence of coronary angioplasty implant and graft (2) Coronary artery disease: Status: Acute Category: Medical Code(s): I25.10 - Atherosclerotic heart disease of [place] coronary artery without angina pectoris (3) Acute chest pain: Status: Acute Category: Medical Code(s): R07.9 - Chest pain, unspecified (4) STEMI (ST elevation myocardial infarction): Status: Acute Category: Medical Code(s): I21.3 - ST elevation (STEMI) myocardial infarction of unspecified site (5) Hypertension: Status: Acute Category: Medical Code(s): I10 - Essential (primary) hypertension (6) Former tobacco use: Status: Acute Category: Social Hx Code(s): Z87.891 - Personal history of nicotine dependence (7) Type 2 diabetes mellitus: Status: Chronic Category: Medical Code(s): E11.9 - Type 2 diabetes mellitus without complications (8) Obstructive Sleep Apnea-Hypopnea Syndrome: Problem details: Essential hypertension Status: Chronic Category: Medical Code(s): G47.33 - Obstructive sleep apnea (adult) (pediatric) Assessment and plan all Dx Plan of Treatment: Patient has been seen by cardiology and is stable to discharge today. Documented by User: Nas Huitron MD 12/06/21 12:45 Subjective *Date: 12/06/21 *Time: 12:44 Assessment and Plan *Assessment and plan (1) Status post coronary artery stent placement: Status: Acute Category: Surgical Code(s): Z95.5 - Presence of coronary angioplasty implant and graft (2) Coronary artery disease: Status: Acute Category: Medical Code(s): I25.10 - Atherosclerotic heart disease of n
--- NOTE | 2021-12-07 14:57 | CARE MANAGER ---
Spoke with patient for post-discharge phone interview. Patient is aware of appointments and new medication.
[2021-12-07 15:18] LABS: Direct LDL Cholesterol 75 mg/dL (100-129)
--- NOTE | 2021-12-08 00:54 | EXP.DC.SUM ---
General Admission date:: 12/05/21 Discharge date: 12/06/21 HPI HPI HPI: Mr. Corrigan is a 51-year-old male with a history of hypertension, type 2 diabetes mellitus mellitus, and chronic neck pain who was cleaning out a warehouse about 2 months ago and became very hot and clammy.? He chalked this up to being a heat stroke.? Ever since that event he had random episodes of chest pain.? The pain would start? near his sternum and radiate into the neck and down both arms.? He also had spells with coughing and felt like he would vomit and did dry heave with 1 episode.? With this visit to [facility] laboratory data showed normal liver function studies, normal renal function, and normal electrolytes.? Blood sugar was noted to be 225 with an A1c of 12.? Cholesterol profile showed total cholesterol 172 with HDL of 21 and LDL of 83.? He was scheduled for a cardiac stress test at this visit. Today during his Myoview stress test? he had markedly abnormal EKG changes with his anterior chest discomfort.? He describes the pain as being severe across his anterior chest radiating up into the neck and down both arms.? He was taken to the emergency room department for evaluation after administration of 2 nitro sprays.? His chest pain did resolve.? He had no recurrence of the chest pain while in the ER.? EKG during the stress test revealed ST elevation while walking and improved after the nitro spray.? Pain was associated with shortness of breath and diaphoresis. He was taken straight to the [employer] with the following results: [facility] shows: The left main artery Has a distal 20% stenosis The left anterior descending artery Has proximal and mid vessel 40 and 50% stenoses followed by additional 40% stenoses.? Large first diagonal artery has a proximal 50% stenosis The circumflex artery Is a nondominant and gives rise to a moderate sized ramus intermedius which has proximal 30% stenosis.? The nondominant circumflex artery has a proximal concentric 50% stenosis The right coronary artery Is a massively large dominant vessel and has a critical proximal 90% stenosis which is preceded by 50% stenoses with additional 50% stenoses distally.? A large posterior descending artery has mid vessel 30 and 40% stenosis while the posterior lateral branch has proximal tandem 70% stenosis The ARITA ventriculogram reveals Normal 65% The left ventricular end-diastolic pressure 20 mmHg IMPRESSION Critical coronary artery disease as described above Persistent moderate to severe disease as described above Normal ejection fraction Elevated LVEDP PLAN 1. Brilinta 90 twice daily plus aspirin 81 mg daily 2. LDL less than 55 to be achieved with high intensity statin 3. Aggressive control of risk factors 4. Cardiac rehabilitation 5. Recommend sleep study 6. CAROLYN inhibitor's and beta-blockers At the time of this exam patient is sitting up in the bed and has completed his dinner.? He enjoyed the food.? He denies chest pain and shortness of breath. Hospital Course Hospital Course Hospital Course: The patient was kept for monitoring after his heart cath. By 12/06/2021, he was feeling well and had no further chest pain or shortness of breath. He was sleeping well, ambulating, and anxious to go home. He was seen by cardiology and was felt stable to discharge. He will follow-up with cardiology Results Data Completed and Pending Labs on day of discharge: Labs from last 24 hours 12/06/21 06:16 LDL Cholesterol Direct 75 L DS: Diagnosis Discharge Diagnosis (1) Status post coronary artery stent placement: Status: Acute (2) Coronary artery disease: Status: Acute (3) Acute chest pain: Status: Resolved (4) Hypertension: Status: Acute (5) Former tobacco use: Status: Acute (6) Type 2 diabetes mellitus: Status: Chronic (7) Obstructive Sleep Apnea-Hypopnea Syndrome: Status: Chronic Meds Home Medications and Allergies Home Medica
== END 2021-12-06 13:01 | disposition home or self-care (01) | DRG 247 ==
LOC: ER 11:03 → 2ND 11:32
PROVIDERS: Internal Medicine; Nurse Practitioner Family; Admitting Provider Family Medicine; Emergency Provider Emergency Medicine; PCP Family Medicine; Visit Provider Family Medicine
PROC: 027034Z Dilation of Coronary Artery, One Artery with Drug-eluting Intraluminal Device, Percutaneous Approach (ICD-10-PCS; principal; 2021-12-05 14:00)
DX: I21.3 ST elevation (STEMI) myocardial infarction of unspecified site (principal); I10 Essential (primary) hypertension; Z87.891 Personal history of nicotine dependence; E11.9 Type 2 diabetes mellitus without complications; I25.119 Atherosclerotic heart disease of native coronary artery with unspecified angina pectoris; Z79.84 Long term (current) use of oral hypoglycemic drugs; E78.5 Hyperlipidemia, unspecified
CPT/HCPCS: 36415; 71045; 78452; 80048; 80053; 80061; 80076; 84484; 85025; 85347; 92941; 93017; 93306; 93458; 99152; 99285; A9502; C1725; C1760; C1769; C1876; C9606; C9803; J1644; Q9967; U0003; U0005

== ENCOUNTER 2022-12-09 07:59 | Emergency (ER) | payer OTHER, SELFPAY ==
[2022-12-09 08:00] VITALS: BP 123/77; PULSE 80; RESP 18; TEMP 36.6; O2SAT 97; BMI 39.4
--- NOTE | 2022-12-09 08:46 | EXP.UTC ---
Discharge Plan Disposition Patient Disposition: Home, Self-Care Condition: Good Prescriptions Prescriptions: New cephalexin 500 mg capsule 500 mg PO QID Qty: 40 0RF No Action Ozempic 0.25 mg or 0.5 mg(2 mg/1.5 mL) pen injector 0.25 mg SQ WEEKLY Qty: 1.5 3RF Rx Instructions: for 4 doses carvedilol 3.125 mg tablet 3.125 mg PO BID Qty: 120 5RF lisinopril 20 mg tablet 20 mg PO HS Qty: 60 5RF lisinopril-hydrochlorothiazide 20-25 mg tablet 1 tab PO DAILY Qty: 60 5RF atorvastatin 80 mg tablet 80 mg PO HS Qty: 90 3RF amlodipine [Norvasc] 5 mg tablet 5 mg PO DAILY fenofibrate 160 mg tablet 160 mg PO DAILY Qty: 90 3RF ranolazine 500 mg tablet extended release 12 hr 500 mg PO BID Qty: 180 3RF clopidogrel [Plavix] 75 mg tablet 75 mg PO DAILY Qty: 90 3RF metformin 500 MG tablet 500 mg PO BIDWMEAL aspirin 81 mg Tablet,Chewable 81 mg PO DAILY Qty: 0 0RF glimepiride 2 mg tablet 2 mg PO DAILY Qty: 30 2RF indomethacin 25 mg capsule 25 mg PO BID Referrals Follow up/Referrals: Nas Huitron MD [Primary Care Provider] - See instructions Activity Restrictions/Add. Instructions Additional Instructions/Restrictions: Keep the wound clean and dry. Keep a dressing on it if you are going to be getting it dirty. Watch the wound for signs of infection, such as redness, swelling, drainage, fever. etc. Take tylenol or ibuprofen for pain. Follow up with your regular doctor. Return in 10 days to have the sutures removed. GO TO THE ER FOR ANY WORSENING SYMPTOMS OR CONCERNS. Clinical Impressions Clinical Impression: Laceration of right thumb, Need for Tdap vaccination Instructions Patient Instructions: DI for Laceration Repair, DI for Laceration Repair -- Finger, Tetanus, Diphtheria, Pertussis (Tdap) Vaccine Discharge ED Provider: Tyler Eller [facility] General Stated complaint: [id number] right thumb cut Mode of Arrival: Ambulatory Source of Information: Patient Limitations: No Limitations Time Seen by Provider: 12/09/22 08:45 Description of Symptoms (Recalled from Triage Doc. by RN): Cut right thumb on a can last night around 9pm. HEENT Symptoms (Recalled from RN notes): No Resp Symptoms (Recalled from RN notes): No Skin Symptoms (Recalled from RN notes): Yes MS Symptoms (Recalled from RN notes): No Functional Status (Recalled from RN notes): wnl History of Present Illness Provider Complaint: He states that last night he was cutting something when he slipped and cut his right thumb. His tetanus immunization is not up to date. Related Data Home Medications Medication Instructions Recorded Confirmed metformin 500 mg tablet 500 mg PO BIDWMEAL Diabetes 12/05/21 06/13/22 amlodipine 5 mg tablet (Norvasc) 5 mg PO DAILY 02/15/22 06/13/22 indomethacin 25 mg capsule 25 mg PO BID Pain 02/15/22 06/13/22 Previous Rx's Medication Instructions Recorded aspirin 81 mg chewable tablet 81 mg PO DAILY #0 tabs 12/06/21 glimepiride 2 mg tablet 2 mg PO DAILY #30 tabs 12/06/21 fenofibrate 160 mg tablet 160 mg PO DAILY #90 tabs 12/11/21 carvedilol 3.125 mg tablet 3.125 mg PO BID #120 tabs 01/25/22 lisinopril 20 mg tablet 20 mg PO HS Hypertension #60 tabs 01/25/22 lisinopril 20 1 tab PO DAILY Hypertension #60 01/25/22 mg-hydrochlorothiazide 25 mg tablet tabs atorvastatin 80 mg tablet 80 mg PO HS #90 tabs 02/15/22 semaglutide 0.25 mg or 0.5 mg (2 0.25 mg (0.2 mL) SQ WEEKLY #1.5 mL 06/13/22 mg/1.5 mL) subcutaneous pen injector (Ozempic) ranolazine 500 mg tablet,extended 500 mg PO BID #180 tabs 09/06/22 release,12 hr clopidogrel 75 mg tablet (Plavix) 75 mg PO DAILY #90 tabs 10/05/22 cephalexin 500 mg capsule 500 mg PO QID #40 caps 12/09/22 Allergies Allergy/AdvReac Type Severity Reaction Status Date / Time Penicillins Allergy Verified 06/13/22 15:01 isosorbide AdvReac Headache Verified 06/13/22 15:01 Worker's
[2022-12-09 09:09] VITALS: BP 123/77; PULSE 80; RESP 18; TEMP 36.6; O2SAT 97
== END 2022-12-09 09:10 | disposition home or self-care (01) ==
PROVIDERS: Emergency Provider Nurse Practitioner Family; PCP Family Medicine
DX: S61.011A Laceration without foreign body of right thumb without damage to nail, initial encounter (principal); E11.9 Type 2 diabetes mellitus without complications; I11.9 Hypertensive heart disease without heart failure; I25.10 Atherosclerotic heart disease of native coronary artery without angina pectoris; E78.5 Hyperlipidemia, unspecified; G47.33 Obstructive sleep apnea (adult) (pediatric); Z79.84 Long term (current) use of oral hypoglycemic drugs; Z23 Encounter for immunization; W26.8XXA Contact with other sharp object(s), not elsewhere classified, initial encounter
CPT/HCPCS: 90715; 96372; 99212; 99214; G0463

== ENCOUNTER → 2022-12-24 14:22 | Outpatient (CLI) | payer OTHER, SELFPAY ==
[2022-12-24 15:36] LABS: Basophils # 0.1 K/mm3 (0-0.2); Basophils % 0.5 % (0.1-2.0); Eosinophils # 0.2 K/mm3 (0.0-0.4); Eosinophils % 2.2 % (0.1-12.0); Hematocrit 49.8 % (42.0-52.0); Lymphocytes # 2.5 K/mm3 (0.7-4.5); Lymphocytes % 24.4 % (10-50); Mean Corpuscular HGB Conc 32.1 g/dL (31.8-35.4); Mean Corpuscular Hemoglobin 27.7 pg (27.0-31.2); Mean Corpuscular Volume 86.2 fl (80-94); Mean Platelet Volume 8.5 fl (7.4-10.4); Monocytes # 0.5 K/mm3 (0.1-1.0); Monocytes % 5.1 % (1.7-9.3); Neutrophils # 6.8 K/mm3 (1.8-7.8); Neutrophils % 67.7 % (37.0-80.0); Platelet Count 277 K/mm3 (142-424); Red Blood Count 5.77 M/mm3 (4.60-6.20); Red Cell Distribution Width 14.4 % (11.5-17.5); White Blood Count 10.1 K/mm3 (4.8-10.8)
[2022-12-24 16:03] LABS: Hemoglobin A1C 8.6 % (4.0-6.0)
[2022-12-24 16:15] LABS: Alanine Aminotransferase 36 U/L (12-78); Albumin Level 4.5 g/dl (3.5-5.0); Albumin/Globulin Ratio 1.7 (1.1-1.8); Alkaline Phosphatase 120 U/L (38-126); Anion Gap 14.9 mEq/L (5-15); Aspartate Amino Transferase 28 U/L (17-59); Bilirubin,Total 0.2 mg/dl (0.2-1.3); Blood Urea Nitrogen 19 mg/dl (9-20); Calcium 9.8 mg/dl (8.4-10.2); Carbon Dioxide 27 mmol/L (22.0-30.0); Chloride 101 mmol/L (98-107); Chol/HDL Ratio 4.1 (1-3.5); Cholesterol 106 mg/dl (140-200); Estimated Glomerular Filt Rate 63 ml/min (>60); GFR (African American) 76 ML/MIN (>60); Globulin 2.6 g/dL (1.3-3.2); Glucose 141 mg/dl (74-100); HDL Cholesterol 26 mg/dl (40-60); Potassium 3.9 mmoL/L (3.5-5.1); Sodium 139 mmol/L (136-145); Total Protein,Serum 7.1 g/dl (6.3-8.2); Triglycerides 279 mg/dl (30-150); VLDL Cholesterol 56 mg/dL (0-40)
[2022-12-24 16:27] LABS: Direct LDL Cholesterol 47.81 mg/dL (100-129)
[2022-12-24 16:47] LABS: Thyroid Stimulating Hormone 0.32 uIU/mL (0.465-4.68)
== END ==
LOC: LAB 14:22
PROVIDERS: PCP Family Medicine; Visit Provider Family Medicine
DX: I25.10 Atherosclerotic heart disease of native coronary artery without angina pectoris (principal); I10 Essential (primary) hypertension; L74.519 Primary focal hyperhidrosis, unspecified; E78.5 Hyperlipidemia, unspecified; E11.65 Type 2 diabetes mellitus with hyperglycemia; Z79.84 Long term (current) use of oral hypoglycemic drugs; Z12.5 Encounter for screening for malignant neoplasm of prostate
CPT/HCPCS: 36415; 80053; 80061; 83036; 84443; 85025

== ENCOUNTER → 2023-01-21 11:18 | Outpatient (CLI) | payer OTHER, SELFPAY ==
--- NOTE | 2023-01-21 11:19 | NM_ITS ---
APPROVED REPORT Exam: Nuclear Stress Test Indication: chest pain..high BP..diabetes..Hx of CA Patient Location: Outpatient Stress Tech: Sheryl Shearer [place] Tech:ASHWIN Leon RT (R)(N)(M) Ht: 5 ft 10 in Wt: 275 lbs HR: 83 bpm BP: 112/82 mmHg BSA: 2.39 m2 Rhythm: NSR TID: 1.36 BMI: 39.4 History: chest pain..high BP..diabetes..Hx of CA Procedure: Patient received 0.4 mg of intravenous Lexiscan, resting heart rate 83 bpm, resting blood pressure 112/82 mmHg, with Lexiscan maximum heart rate achieved was 105 bpm which is 85 % of the maximum predicted heart rate and blood pressure was 141/90 mmHg. With Lexiscan, patient denied any complaint of chest pain. Cardiac Stress and Resting SPECT Images: Cardiac Stress and Resting SPECT images were obtained using technetium 99m Myoview 25.4 mCi stress and 8.44 mCi at rest. Raw images demonstrate significant diaphragmatic overlap with the inferior LV wall borders. This may affect the diagnostic interpretation of the study findings. Resting and stress imaging in supine position demonstrate a medium sized, moderate, fixed perfusion defect in the basal to mid inferior and inferolateral LV wall. This is no longer visualized with prone stress imaging. Findings are suggestive of diaphragmatic attenuation. There is increased transient ischemic dilatation ratio (TID 1.36), suggestive of possible multivessel disease or balanced ischemia. Gated imaging demonstrates normal global and regional LV systolic function. LVEF is calculated at 64%. Conclusion: Diaphragmatic attenuation is present. No definite fixed or reversible perfusion defects. Increased transient ischemic dilatation ratio (TID 1.36), suggestive of possible multivessel disease or balanced ischemia. Gated imaging demonstrates normal global and regional LV systolic function. LVEF is calculated at 64%. Electronically signed by : Tete Crespo MD 01/26/2023 00:57:43
--- NOTE | 2023-01-21 14:41 | CA_ITS ---
APPROVED REPORT Exam: Pharmacologic Technologist: Sheryl Shearer Ht: 5 ft 10 in Wt: 269 lbs BSA: 2.37 m2 HR: 83 bpm BP: 112/82 mmHg Rhythm: NSR Indications: CAD Medical History Medications: Amlodipine,,,,, Aspirin,,,,, Metformin,,,,, Cephalexin,,,,, Atorvastatin,,,,, Glimepiride,,,,, Carvedilol,,,,, CloPIdogrel,,,,, FeNOfibrate,,,,, INdomethacin,,,,, Ranolazine,,,,, Ozempic,,,,, Stress Test Details Test: LEXISCAN HR Resting HR: 77 bpm Max Heart Rate (APMHR): 166 bpm Max HR Achieved: 109 bpm Target HR (85% APMHR): 141 bpm % of APMHR: 66 Recovery HR: 86 bpm BP Resting BP: 112.0/82.0 mmHg Max BP: 141.0/90.0 mmHg Recovery BP: 135.0/95.0 mmHg ECG Resting ECG: Sinus rhythm Stress ECG: No ST changes Arrhythmia: None Clinical Exercise duration: 04:00 min Highest Stage Achieved: Exercise capacity: 1.0 METs Stress ECG Conclusion Symptoms: Dyspnea Arrhythmias/Ectopy: None ST-T Changes: No significant ST changes Conclusion: Unremarkable Lexiscan stress test. Myoview images are reported separately. Test Summary REST . . . . . . . Resting REST 07:03 . . 77 . 112/ 82 . . Stage 1 . . . . . . . Myoview Injected Stage 1 01:00 . . 103 . . . . Stage 2 01:00 . . 86 . . . . Stage 3 01:00 . . 92 . 141/ 90 . . Stage 4 01:00 . . 82 . 132/ 87 . Stop exercise at 04:00 RECOVERY 01:00 . . 89 . 137/ 92 . . RECOVERY 02:00 . . 82 . 123/ 86 . . RECOVERY 03:00 . . 88 . 124/ 86 . . RECOVERY 04:00 . . 90 . 124/ 86 . . RECOVERY 05:00 . . 86 . 135/ 95 . . RECOVERY 05:30 . . 87 . 135/ 95 . . Electronically signed by : Tete Crespo MD 01/26/2023 00:54:33
== END ==
LOC: RAD 11:18
PROVIDERS: PCP Family Medicine; Visit Provider Physician Assistant
DX: I20.89 Other forms of angina pectoris (principal); I10 Essential (primary) hypertension; E78.5 Hyperlipidemia, unspecified; E11.9 Type 2 diabetes mellitus without complications; Z87.891 Personal history of nicotine dependence; Z79.84 Long term (current) use of oral hypoglycemic drugs
CPT/HCPCS: 78452; 93017; A9502; J2785

== ENCOUNTER 2023-02-08 11:23 | Day surgery (SDC) | payer OTHER, SELFPAY ==
[2023-02-08] VITALS (10 sets, daily range): BP systolic 99–239; BP diastolic 58–110; PULSE 72–98; RESP 18–20; TEMP 37; O2SAT 87–98; BMI 39.3
--- NOTE | 2023-02-08 07:17 | IR_ITS ---
APPROVED REPORT Patient Location: Outpatient Sock Examiner: ASHWIN Hercules RT (R) PROCEDURES Left heart catheterization Left ventriculogram Selective coronary angiogram Drug-eluting stent deployment to the mid LAD Drug-eluting stent deployment to the proximal and mid nondominant circumflex artery INDICATION Coronary artery disease, Worsening angina pectoris, High risk abnormal Myoview Informed consent was obtained prior to the procedure. COMPLICATIONS None Estimated Blood Loss: Less than 10 mls TECHNIQUE One percent lidocaine used to anesthetize the right anterior aspect of the wrist. The right radial artery was accessed via the Seldinger technique. A 6 Maori sheath was placed in the right radial artery. 2.5 mg of Verapamil, 800 mcg of nitroglycerin, 1mg Lidocaine and 5000 U Heparin were given through the arterial sheath. The papa catheter was also used to perform left heart catheterization, left ventriculogram and selective coronary angiogram. At the end of the diagnostic angiogram therapeutic heparin was administered giving a therapeutic ACT and the guide catheter was placed in the left main artery followed by Choice PT extra-support wire being placed on the LAD. A 2.75 x 38 mm Javy frontier stent was deployed at 18 cecile reducing the severe stenosis to 0%. An additional 3 mm x 22 mm Javy frontier stent was placed proximal to the for stent yet still overlapping the stent and then deployed at 20 cecile. The balloon was advanced and deployed at 20 cecile to mesh the 2 stents. ANNIKA-3 flow was present before and after the procedure. After achieving excellent angiographic results the apparatus was removed and a Choice PT extra-support wire was placed into the circumflex artery. A 2.5 x 38 mm Javy frontier stent was deployed at 18 cecile reducing the proximal mid and distal stenosis to 0%. There were excellent angiograph results with ANNIKA-3 flow being present before and after the procedure. At the end of procedure the apparatus was removed the sheath was removed and hemostasis was achieved using TR banding patient was transferred to the postop holding in stable condition ANGIOGRAPHIC RESULTS The left main artery Normal The left anterior descending artery Has proximal 10 to 20% stenoses followed by a 50% concentric stenosis distal to a large first septal line controller. There is an additional concentric 80 to 90% stenosis at the level of the second and third septal line controller. Moderate sized first diagonal artery has proximal 60 to 70% stenosis The circumflex artery Is nondominant and gives rise to a moderate size ramus intermedius which has proximal concentric 50 to 60% stenosis. The circumflex artery itself has proximal 70% stenoses which extend into the second obtuse marginal artery The right coronary artery Is a dominant vessel and has stents in the proximal segment which have diffuse 40% concentric in-stent restenosis. Distal to the stents there is 30 to 40% eagle disease. A large posterior descending artery has a proximal 70% stenosis followed by an additional 70 to 80% stenosis. This is a large posterior descending artery 3 mm in diameter.. A large posterior lateral branch has mid vessel tandem 70% stenoses. The vessel was 2.5 to 2.75 mm at the stenotic area The [place] ventriculogram reveals Reduced at 45 to 50% The left ventricular end-diastolic pressure 25 mmHg IMPRESSION Severe coronary disease as described above Successful stenting of the mid LAD severe disease reduced to 0% with 2 contiguous drug-eluting stents Successful stenting of the proximal mid and distal nondominant circumflex artery severe disease reduced to 0% with 1 drug-eluting stent Persistent severe stenosis in a large posterior descending artery and posterior lateral branch Slightly reduc
[2023-02-08 11:50] LABS: Basophils # 0.1 K/mm3 (0-0.2); Basophils % 0.6 % (0.1-2.0); Eosinophils # 0.2 K/mm3 (0.0-0.4); Eosinophils % 2.4 % (0.1-12.0); Hematocrit 44.9 % (42.0-52.0); Hemoglobin 15.4 g/dL (14.1-18.0); Lymphocytes # 1.9 K/mm3 (0.7-4.5); Lymphocytes % 22.8 % (10-50); Mean Corpuscular HGB Conc 34.4 g/dL (31.8-35.4); Mean Corpuscular Hemoglobin 29.6 pg (27.0-31.2); Mean Corpuscular Volume 86.1 fl (80-94); Mean Platelet Volume 8.6 fl (7.4-10.4); Monocytes # 0.5 K/mm3 (0.1-1.0); Monocytes % 5.7 % (1.7-9.3); Neutrophils # 5.8 K/mm3 (1.8-7.8); Neutrophils % 68.4 % (37.0-80.0); Platelet Count 227 K/mm3 (142-424); Red Blood Count 5.21 M/mm3 (4.60-6.20); Red Cell Distribution Width 14.4 % (11.5-17.5); White Blood Count 8.4 K/mm3 (4.8-10.8)
[2023-02-08 11:54] LABS: Chloride 109 mmol/L (98-107)
[2023-02-08 11:55] LABS: Potassium 4.4 mmoL/L (3.5-5.1); Sodium 141 mmol/L (136-145)
[2023-02-08 11:58] LABS: Anion Gap 13.4 mEq/L (5-15); Blood Urea Nitrogen 19 mg/dl (9-20); Calcium 8.9 mg/dl (8.4-10.2); Carbon Dioxide 23 mmol/L (22.0-30.0); Creatinine Clearance Estimated 135 mL/min (50-200); Estimated Glomerular Filt Rate 70 ml/min (>60); GFR (African American) 84 ML/MIN (>60); Glucose 156 mg/dl (74-100)
[2023-02-08 16:58] LABS: CATHL Activated Clotting Time 371 SEC (74-125)
== END 2023-02-08 18:02 | disposition home or self-care (01) ==
PROVIDERS: PCP Family Medicine; Visit Provider Internal Medicine
DX: I25.118 Atherosclerotic heart disease of native coronary artery with other forms of angina pectoris (principal); Z79.899 Other long term (current) drug therapy; Z79.84 Long term (current) use of oral hypoglycemic drugs; E11.9 Type 2 diabetes mellitus without complications; I77.1 Stricture of artery; Z86.16 Personal history of COVID-19; I25.2 Old myocardial infarction; E78.5 Hyperlipidemia, unspecified; G47.33 Obstructive sleep apnea (adult) (pediatric); R94.39 Abnormal result of other cardiovascular function study
CPT/HCPCS: 36415; 80048; 85025; 85347; 92928; 93458; 99152; 99153; C1725; C1760; C1769; C1876; C9600; J1644; Q9967

== ENCOUNTER 2023-03-04 14:45 | Outpatient (RCR) | payer OTHER, SELFPAY | END 2023-04-14 16:00 | disposition home or self-care (01) | LOC: PT 14:45 | PROVIDERS: Visit Provider Internal Medicine | DX: I25.10 Atherosclerotic heart disease of native coronary artery without angina pectoris (principal); Z95.5 Presence of coronary angioplasty implant and graft ==

== ENCOUNTER → 2023-03-14 16:59 | Outpatient (CLI) | payer OTHER, SELFPAY ==
--- NOTE | 2023-03-14 17:18 | XR_ITS ---
PROCEDURE INFORMATION: Exam: XR Right Hip Exam date and time: 03/14/2023 5:20 PM Age: 52 years old Clinical indication: Patient HX: Long Term right hip pain, no known injury. ; Additional info: Right hip pain for several months TECHNIQUE: Imaging protocol: Radiologic exam of the right hip. Views: 2 or 3 views hip with pelvis when performed. COMPARISON: CR XR LUMBAR SPINE MIN 4V 04/17/2019 4:28 PM FINDINGS: Bones/joints: Advanced degenerative changes of the right hip with joint space narrowing, productive changes, and subchondral sclerosis. There are partially visualized degenerative changes of the sacroiliac joints and lumbar spine as well as some degenerative disease of the pubic symphysis. Soft tissues: Unremarkable. IMPRESSION: Advanced degenerative change of the right hip.
--- NOTE | 2023-03-14 17:19 | XR_ITS ---
PROCEDURE INFORMATION: Exam: XR Right Knee Exam date and time: 03/14/2023 5:20 PM Age: 52 years old Clinical indication: Patient HX: Shelter right knee pain, no known injury. ; Additional info: Right knee pain for several months, no injury TECHNIQUE: Imaging protocol: Radiologic exam of the right knee. Views: 3 views. COMPARISON: LEAJW/ORT MRI-LOW EXT ANY JOINT W/O-RT 03/22/2016 9:30 AM FINDINGS: Bones/joints: The osseous structures appear intact with no evidence of acute fracture, dislocation, or malalignment. Joint spaces are preserved. No abnormal bone density or destructive lesions are noted. Soft tissues: Soft tissues appear unremarkable. IMPRESSION: At the time of imaging, there is no evidence for acute osseous abnormalities. Clinical correlation is advised for comprehensive assessment.
== END ==
PROVIDERS: PCP Family Medicine; Visit Provider Family Medicine
DX: M25.551 Pain in right hip (principal); M25.561 Pain in right knee
CPT/HCPCS: 73502; 73562

== ENCOUNTER → 2023-03-19 13:03 | Outpatient (CLI) | payer OTHER, SELFPAY ==
--- NOTE | 2023-03-19 13:04 | CA_ITS ---
APPROVED REPORT EXAM: Comprehensive 2D, Doppler, and color-flow Echocardiogram Explosive Operator Supervisor: Magalie Oropeza RVT Ht: 5 ft 10 in Wt: 270lbs BSA: 2.37 BP: 110/76 mmHg Indications: CAD,ABN EKG,HTN,DM,HLD 2D Dimensions LA Volume 34.30 mL LA Volume Index 14.47 mL/m2 (M/F) 16-34 M-Mode Dimensions RVDd 3.26 cm (0.9-2.6) LA Diam 3.95 cm (1.9-4.0) LVDd 4.19 cm (3.5-5.7) LVDs 2.50 cm (3.5-5.7) IVSd 1.12 cm (0.6-1.1) PWd 0.85 cm (0.6-1.1) EF (Teich) 71.40% FS 40.30% EDV (Teich) 78.10 mL TAPSE 2.39 (<1.7) ESV (Teich) 22.30 mL LV Diastology E Decel Time 210 (160-240 msec) E/A Ratio 0.9 Aortic Valve DEONDRE Index 2.21 cm2/m2 AoV Peak Ash. 177.0 (50-130 cm/s) AO Peak GR. 12.60 mmHg AO Mean GR. 4.90 (<5 mmHg) AO VTI 21.8 (18-25 cm) DEONDRE (VTI) 5.38 (2.5-4.5 cm2) Mitral Valve MV E Max Ash. 70.0 (40-130 cm/s) MV A Velocity 81.0 (40-130 cm/s) E/A Ratio 0.86 MV PHT 62.0 ms Pulmonary Valve PV Peak Velocity 113.0 (50-150 cm/s) Left Ventricle The left ventricle is normal size. The left ventricular systolic function is normal. The left ventricular ejection fraction is within the normal range. There is increased LV wall thickness. There is normal LV segmental wall motion. Transmitral Doppler flow pattern suggests impaired LV relaxation. LVEF is 55%. Right Ventricle The right ventricle is normal size. The right ventricular systolic function is normal. Atria The left atrium size is normal. The right atrium size is normal. There is no Doppler evidence of interatrial shunt. Aortic Valve The aortic valve is mildly thickened. There is no aortic valvular stenosis. Trace aortic regurgitation. Mitral Valve The mitral valve is normal in structure. No evidence of mitral valve stenosis. There is no mitral valve regurgitation noted. Tricuspid Valve The tricuspid valve leaflets are thin and pliable. There is no tricuspid valve stenosis. Trace tricuspid regurgitation. There is insufficient TR jet to estimate RVSP. Pulmonic Valve The pulmonary valve is normal in structure. Trace pulmonic regurgitation. Great Vessels The aortic root is normal in size. The ascending aorta is normal in size. The IVC is not well-visualized. Pericardium There is no pericardial effusion. Other Information Study Quality: Fair Conclusion Normal biventricular systolic function. No significant valvular stenosis or regurgitation. Electronically signed by : Tete Crespo MD 03/23/2023 00:00:49
== END ==
PROVIDERS: PCP Family Medicine; Visit Provider Nurse Practitioner
DX: I20.89 Other forms of angina pectoris (principal); I51.9 Heart disease, unspecified; I10 Essential (primary) hypertension; E11.9 Type 2 diabetes mellitus without complications; E78.5 Hyperlipidemia, unspecified; G47.33 Obstructive sleep apnea (adult) (pediatric); Z87.891 Personal history of nicotine dependence; Z95.5 Presence of coronary angioplasty implant and graft; Z79.84 Long term (current) use of oral hypoglycemic drugs
CPT/HCPCS: 93306

== ENCOUNTER 2023-04-12 10:00 | Outpatient (RCR) | payer OTHER, SELFPAY ==
--- NOTE | 2023-04-05 09:08 | HMH.PTOPEV ---
PT Outpatient Evaluation Rehab PT Outpatient Evaluation Start: 04/05/23 07:49 Freq: Status: Active Protocol: Document 04/05/23 08:55 POLLY (Rec: 04/05/23 09:08 PHOMARTINE [id number]) E-signed By Sky Balbuena, PT Outpatient Therapy Subjective History Subjective History This is the initial PT eval for Tang Corrigan, 52 yowm who presents with c/o 2- 3 yrs hx of R hip pain, worse x 2-3 mos. He reports certain activities result in sharp pains and a fairly consistent aching pain at night that will wake him from his sleep. He has PMH of CAD, STEMI, heart cath with stents x 5, HTN, HLD , ZIGGY, DM. New diagnosis of cancer in past 12 No months? Chief Complaint Pain Symptom Type Ache,Sharp Symptoms Relieved By Rest/Positioning Symptoms Aggravated By Standing,Bending/Stooping, Physical Activity Prior Functional Limitations None Current Functional Limitations Housework,Sleeping,Standing, Recreation Activity,Bending/ Stooping Symptom Description Intermittent,Activity Dependent Level of pain today (0-10) 0 Pain scale - at its worst (0-10) 7 Hip/Knee Eval Palpation Tenderness right Knee Palpation Overall Comment R GT, hip flex 2/4 Hip Palpation Findings Tenderness MMT Hip Flexion Strength Grade 4 Good Hip Abduction Strength Grade 5 Normal Hip Adduction Strength Grade 5 Normal Hip Extension Strength Grade 4 Good Gluteus Matias Strength Grade 4 Good Hip External Rotation Strength Grade 4 Good Hip Internal Rotation Strength Grade 4 Good Knee Extension Strength Grade 5 Normal Knee Flexion Strength Grade 5 Normal Special Tests Hip Piriformis Test Negative Left,Negative Right Sciatic Nerve Tension Test Negative Left,Negative Right Hip Scouring (Quadrant) Test Negative Left,Positive Right Lower Extremity Functional Index Activities Today, do you or would you have any difficulty at all with: a.Any of your usual work, housework or A little bit of difficulty school activities b. Your usual hobbies, recreational or A little bit of difficulty sporting activities c. Getting into or out of the bath No difficulty d. Walking between rooms A little bit of difficulty e. Putting on your shoes or socks Quite a bit of difficulty f. Squatting Moderate difficulty g. Lifting an object, like a bag of Moderate difficulty groceries from the floor h. Performing light activities around A little bit of difficulty your home i. Performing heavy activities around Quite a bit of difficulty your home j. Getting into or out of a car A little bit of difficulty k. Walking 2 blocks A little bit of difficulty l. Walking a mile Quite a bit of difficulty m. Going up or down 10 stairs (about 1 A little bit of difficulty flight of stairs) n. Standing for 1 hour A little bit of difficulty o. Sitting for 1 hour No difficulty p. Running on even ground A little bit of difficulty q. Running on uneven ground A little bit of difficulty r. Making sharp turns while running fast A little bit of difficulty s. Hopping A little bit of difficulty t. Rolling over in bed A little bit of difficulty LEFI Score Lower Extremity Functional Index Score 54 Outpatient Therapy Assessment Impairments Problems/Impairmments Palpation Tenderness,Impaired Range of Motion,Impaired Strength,Impaired Endurance, Impaired Transfers,Impaired Gait Pattern,Impaired Walking, Impaired Standing,Impaired Household Care,Impaired Stair Climbing,Impaired Incline Stepping,Impaired Stepping on Uneven Surface,Impaired Recreational Activities, Subjective C/O Pain,Impaired Self Care/Self Management Prognosis Rehab Potential Good Clinical Impression Consistent with Diagnosis Yes Short Term Goals Number of Weeks 2 Decreased Palpation Tenderness Yes: R hip 1/4 Increase Strength Yes: R LE 4+/5 throughout Improve Ability to Step on Uneven Yes: without pain Surfaces Improve LEFI Score Yes: >58 Decrease Subjective C/O Pain Yes: 5/10 at worst Patient to be Ind w/ HEP Yes Burlapper Goals Number of Weeks 4 Decreased Palpation Tenderness Yes: R hip 0/4 Increase Strength Yes: R LE 5/5 throughout Increase Ability to Stand Yes: > 30 min without pain Improve Ability For Household Care Yes: without pain Improve LEFI Score Yes: >68 Decrease Subjective C/O Pain Yes: 3/10 at worst Patient to be Ind w/ Advanced HEP Yes Outpatient Therapy Plan of Care Treatment Plan May Include Therapeutic Exercise Including Home Yes Exercise Program Manual Therapy Techniques Yes Neuromuscular Re-education Yes Therapeutic Activities to Return to Yes Previous Functional/Work Level ADL/Self Care Education Yes Thermal Modalities Yes Electrical Stimulation Yes Ultrasound/Phonophoresis Yes Orthotics/Bracing/Splinting Yes Massage Yes Eval/Re-Eval Yes Frequency Times per week 2 Duration Number of Weeks 4 Addendums This patient is a candidate for social No or vocational rehab? Patient/Guardian verbally acknowledges Yes understanding of treatment program and consents to further treatment? Patient/Guardian verbally acknowledges Yes understanding of diagnosis, prognosis and goals for treatment? Eval Complexity PT Charges 66629 - High Complexity Shoulder/Elbow Eval Shoulder Objective Measurements Elbow Objective Measurements PHYSICIAN CERTIFICATION: I certify the specified therapy services for Tang Corrigan are required, authorized, and reviewed every 30 days.
== END 2023-04-12 11:00 | disposition home or self-care (01) ==
LOC: PT 10:00
PROVIDERS: PCP Family Medicine; Visit Provider Orthopaedic Surgery
DX: M25.551 Pain in right hip (principal)
CPT/HCPCS: 97010; 97014; 97035; 97110; 97163; G0283

== ENCOUNTER 2023-08-31 16:46 | Emergency (ER) | payer OTHER, SELFPAY ==
[2023-08-31] VITALS (11 sets, daily range): BP systolic 100–146; BP diastolic 62–132; PULSE 77–85; RESP 15–20; TEMP 36.7–36.9; O2SAT 94–96; BMI 39.3
--- NOTE | 2023-08-31 | ECG_ITS ---
APPROVED REPORT Exam: Resting ECG HR:81 bpm ECG Measurements Heart Rate 81 AXES AL 208 P 42 QRSd 99 QRS -27 QT 344 T 45 QTc 381 Conclusion SINUS RHYTHM BORDERLINE LEFT AXIS DEVIATION [QRS AXIS < -20] BORDERLINE ECG UNCONFIRMED REPORT Electronically signed by : CORTNEY DOTY, 09/01/2023 03:29:53
--- NOTE | 2023-08-31 16:51 | XR_ITS ---
PROCEDURE INFORMATION: Exam: XR Chest Exam date and time: 08/31/2023 4:56 PM Age: 52 years old Clinical indication: Pain; Chest pressure; Prior surgery; Surgery date: 6+ months; Surgery type: Stents; Additional info: Cp, former smoker TECHNIQUE: Imaging protocol: Radiologic exam of the chest. Views: 1 view. COMPARISON: CR XR CHEST PORTABLE 12/05/2021 10:47 AM FINDINGS: Lungs: No consolidation or lung nodules. Pleural spaces: No pleural effusion. No pneumothorax. Heart/Mediastinum: No abnormalities. No cardiomegaly. No pulmonary vascular congestion. Bones/joints: No fractures or bone lesions. IMPRESSION: No acute findings in the chest. No interval change.
--- NOTE | 2023-08-31 16:52 | [facility].EDCP ---
Discharge Plan Disposition Patient Disposition: Home, Self-Care Prescriptions Prescriptions: New isosorbide mononitrate 30 mg tablet extended release 24 hr 30 mg PO DAILY Qty: 7 0RF No Action carvedilol 3.125 mg tablet 3.125 mg PO BID Qty: 120 5RF amlodipine [Norvasc] 5 mg tablet 5 mg PO DAILY Ozempic 2 mg/dose (8 mg/3 mL) pen injector 2 mg SQ WEEKLY Qty: 3 5RF fenofibrate 160 mg tablet 160 mg PO DAILY Qty: 90 3RF clopidogrel [Plavix] 75 mg tablet 75 mg PO DAILY Qty: 90 3RF lisinopril 20 mg tablet 20 mg PO HS Qty: 90 3RF atorvastatin 80 mg tablet See Rx Instructions .ROUTE .COMPLEX Qty: 90 3RF Dose Instruction: TAKE 1 TABLET BY MOUTH EVERY NIGHT AT BEDTIME Rx Instructions: TAKE 1 TABLET BY MOUTH EVERY NIGHT AT BEDTIME lisinopril-hydrochlorothiazide 20-25 mg tablet See Rx Instructions .ROUTE .COMPLEX Qty: 90 4RF Dose Instruction: TAKE 1 TABLET BY MOUTH DAILY FOR HIGH BLOOD PRESSURE Rx Instructions: TAKE 1 TABLET BY MOUTH DAILY FOR HIGH BLOOD PRESSURE ranolazine 1,000 mg tablet extended release 12 hr 1,000 mg PO BID Qty: 180 1RF metformin 500 MG tablet 500 mg PO BIDWMEAL aspirin 81 mg Tablet,Chewable 81 mg PO DAILY Qty: 0 0RF glimepiride 2 mg tablet 2 mg PO DAILY Qty: 30 2RF indomethacin 25 mg capsule 25 mg PO BID cephalexin 500 mg capsule 500 mg PO QID Qty: 40 0RF Referrals Follow up/Referrals: Nas Huitron MD [Primary Care Provider] - See instructions Gerber Dave MD [Staff Physician] - See instructions Activity Restrictions/Add. Instructions Additional Instructions/Restrictions: At this time is felt you are safe to be discharged home. New or worsening symptoms please not hesitate to return the emergency department. Please take your blood sugar and if it becomes greater than 400 return for continued evaluation. Follow-up with cardiology Saturday at 9 AM, tell them Dr. Dave wanted you seen. Please take your medication as prescribed. Please follow-up with Dr. Huitron as soon as you are able to modify your blood sugar control as discussed. Please take your medication as prescribed. Please talk to your manager outreach on [place] morning about whether or not they want to continue you to take your isosorbide. Clinical Impressions Clinical Impression: Chest pain, Acute hyperglycemia Discharge ED Provider: Preston Iniguez HPI General Chief Complaint: Chest Pain Stated Complaint: CHEST PAIN Time Seen by Provider: 08/31/23 16:50 History of Present Illness HPI narrative: Patient is a 52-year-old male with past medical history of cardiovascular disease status post stents x 5, icl-vvbvizd-lshkiawjo diabetes, hypertension who presents emergency department for evaluation of chest pain and tightness. Onset was subacute, over the last 2 weeks, progressive, right-sided chest pain radiating to his shoulder. No other acute complaints at this time. Related Data Home Medications Medication Instructions Recorded Confirmed metformin 500 mg tablet 500 mg PO BIDWMEAL Diabetes 12/05/21 03/26/23 amlodipine 5 mg tablet (Norvasc) 5 mg PO DAILY 02/15/22 03/26/23 indomethacin 25 mg capsule 25 mg PO BID Pain 02/15/22 03/26/23 Previous Rx's Medication Instructions Recorded aspirin 81 mg chewable tablet 81 mg PO DAILY #0 tabs 12/06/21 glimepiride 2 mg tablet 2 mg PO DAILY #30 tabs 12/06/21 fenofibrate 160 mg tablet 160 mg PO DAILY #90 tabs 12/11/21 carvedilol 3.125 mg tablet 3.125 mg PO BID #120 tabs 01/25/22 clopidogrel 75 mg tablet (Plavix) 75 mg PO DAILY #90 tabs 10/05/22 cephalexin 500 mg capsule 500 mg PO QID #40 caps 12/09/22 lisinopril 20 mg tablet 20 mg PO HS Hypertension #90 tabs 01/03/23 atorvastatin 80 mg tablet See Rx Instructions .Route 02/25/23 .COMPLEX #90 tabs lisinopril 20 See Rx Instructions .Route 03/04/23 mg-hydrochlorothiazide 25 mg tablet .COMPLEX #90 tabs semaglutide 2 mg/dose (8 mg/3 mL) 2 mg (0.75 mL) SQ WEEKLY #3 mL 03/06/23 subcutaneous pen injector ranolazine 1,000 mg 1,000 mg PO BID #180 tabs 08/22/23 tablet,extended release,12 hr isosorbide mononitrate 30 mg 30 mg PO DAILY chest pain #7 tabs 08/31/23 tablet,extended release 24 hr Allergies Allergy/AdvReac Type Severity Reaction Status Date / Time Penicillins Allergy Verified 03/26/23 09:00 isosorbide AdvReac Headache Verified 03/26/23 09:00 [facility] Disclaimer: The information contained in this section may have been updated after the patient was seen, as this information can be updated by other users. Medical History Abnormal EKG Angina pectoris Coronary artery disease Exposure to COVID-19 virus Hyperlipidemia Hypertension LV dysfunction Obstructive Sleep Apnea-Hypopnea Syndrome STEMI (ST elevation myocardial infarction) Type 2 diabetes mellitus Typical angina Surgical History Status post coronary artery stent placement Social History Smoking Status: Never smoker alcohol intake: never substance use type: denies use current occupational status: employed Travel in the last 8 weeks: Inside the [facility] housing: house caffeine: Yes ROS Obtained: Yes Systems reviewed as appropriate & no additional complaints except as documented Physical Exam General General appearance: alert and in no apparent distress Head Head exam: atraumatic and normocephalic Eye Eye exam: Present PERRL ENT ENT exam: Present mucous membranes moist Neck Neck exam: Present normal inspection Chest Chest inspection: Present normal inspection and symmetric chest wall rise Respiratory Respiratory exam: Present normal lung sounds bilaterally; Absent respiratory distress Cardiovascular Cardiovascular exam: Present regular rate and normal rhythm Abdominal Exam Abdominal exam: Present soft; Absent tenderness Extremities Exam Extremities exam: Present normal inspection Neurological Exam Neurological exam: Present alert Psychiatric Psychiatric exam: Present normal affect Skin Skin exam: Present warm and dry HEART Score HEART Score HEART Score assessment performed?: Yes History (anamnesis): Moderately suspicious ECG: Normal Age: 45-65 years Risk factors: Atherosclerosis history Troponin: </= normal limit HEART Score: 4 Critical Care Critical Care Time Critical Care Time: No Medical Decision Making [place] Inquiry Pt receiving controlled substance: No Vital Signs Vital Signs: 08/31/23 16:50 08/31/23 17:02 08/31/23 17:30 Temperature 98.5 F Temperature Source Oral Pulse Rate 82 Pulse Rate [Left] 85 Respiratory Rate 20 Blood Pressure 127/76 114/73 Blood Pressure [Left Arm] 127/88 Blood Pressure Mean 80 Blood Pressure Mean [Left Arm] 101 02 Sat by Pulse Oximetry 96 94 L Oxygen Delivery Method Room Air 08/31/23 18:01 08/31/23 18:30 08/31/23 19:01 Temperature Temperature Source Pulse Rate 84 81 Pulse Rate [Left] Respiratory Rate 16 Blood Pressure 108/71 L 100/67 L 116/90 Blood Pressure [Left Arm] Blood Pressure Mean 82 98 Blood Pressure Mean [Left Arm] 02 Sat by Pulse Oximetry 94 L 94 L Oxygen Delivery Method Room Air Room Air 08/31/23 19:39 08/31/23 20:01 08/31/23 21:01 Temperature Temperature Source Pulse Rate 79 78 79 Pulse Rate [Left] Respiratory Rate Blood Pressure 131/88 146/89 H 146/132 H Blood Pressure [Left Arm] Blood Pressure Mean 96 96 133 Blood Pressure Mean [Left Arm] 02 Sat by Pulse Oximetry 96 96 95 Oxygen Delivery Method Room Air Room Air Room Air 08/31/23 21:31 Temperature Temperature Source Pulse Rate 77 Pulse Rate [Left] Respiratory Rate Blood Pressure 132/82 Blood Pressure [Left Arm] Blood Pressure Mean 98 Blood Pressure Mean [Left Arm] 02 Sat by Pulse Oximetry 95 Oxygen Delivery Method Room Air Lab Data Labs: Lab Results 08/31/23 16:50: WBC 9.0, RBC 5.49, Hgb 16.1, Hct 49.3, MCV 89.9, MCH 29.3, MCHC 32.7, RDW 14.6, Plt Count 254, MPV 9.1, Neut % (Auto) 67.5, Lymph % (Auto) 24.9, [place] % (Auto) 4.5, Eos % (Auto) 1.3, Baso % (Auto) 1.9, Neut # (Auto) 6.0, Lymph # (Auto) 2.2, [place] # (Auto) 0.4, Eos # (Auto) 0.1, Baso # (Auto) 0.2, Sodium 133 L, Potassium 4.2, Chloride 98, Carbon Dioxide 23, Anion Gap 16.2 H, BUN 25 H, Creatinine 1.30 H, Estimated Creat Clear 114, Estimated GFR 58 L, Est GFR ( Amer) 70, Glucose 566 H*, Calcium 9.7, Total Bilirubin 0.7, AST 30, ALT 36, Alkaline Phosphatase 169 H, Troponin I < 0.01, Total Protein 7.4, Albumin 4.4, Globulin 3.0, Albumin/Globulin Ratio 1.5, Acetone Level None detected 08/31/23 17:27: VBG pH 7.40, VBG pCO2 36.2, VBG pO2 81.4 H, VBG HCO3 21.7 L, VBG Total CO2 22.8 L, VBG O2 Saturation 95.2 H, VBG Base Excess -3.2 L, VBG Lactic Acid 2.3 H 08/31/23 19:28: Troponin I < 0.01 08/31/23 16:50 08/31/23 16:50 Response Orders (Tests/Meds): ED MEDICATIONS Generic Name Dose Route Start Last Admin Trade Name Freq PRN Reason Stop Dose Admin Isosorbide Mononitrate 30 mg 09/01/23 09:00 Isosorbide [place] 30mg Tab.Er.24h PO 10/01/23 08:59 DAILY SHRUTI Nitroglycerin 0.4 mg 08/31/23 16:51 Nitroglycerin 0.4mg Sl Tablet SL 09/30/23 16:50 Q5MINP PRN Chest Pain Discontinued Medications Generic Name Dose Route Start Last Admin Trade Name Freq PRN Reason Stop Dose Admin Aspirin 324 mg 08/31/23 16:51 08/31/23 17:07 Aspirin 81mg Chewable Tablet PO 08/31/23 16:52 324 mg ONCE ONE Administration Lactated Ringer's 1,000 mls @ 999 mls/hr 08/31/23 17:27 08/31/23 17:30 Lactated Ringer's 1000 Ml Bag IV 08/31/23 18:27 999 mls/hr .Q1H1M ONE Administration Insulin Human Regular 8 unit 08/31/23 18:51 08/31/23 18:53 Insulin Human Regular 100 Units/Ml 10ml Vial IVP 08/31/23 18:52 8 unit ONCE ONE Administration Morphine Sulfate 4 mg 08/31/23 19:34 08/31/23 19:46 Morphine 4mg/Ml Syringe IV 08/31/23 19:35 Not Given ONCE ONE ORDERS Category Date Time Status CXR --portable [XR chest portable] Stat Exams 08/31/23 16:51 Completed Acetone, Serum (Rapid) Stat Lab 08/31/23 16:50 Completed CBC w/Auto Diff [Complete Blood Count Auto Diff] Stat Lab 08/31/23 16:50 Completed CMP [Comprehensive Metabolic Panel] Stat Lab 08/31/23 16:50 Completed Trop I [Troponin I] Stat Lab 08/31/23 16:50 Completed Troponin I Q3H Lab 08/31/23 19:28 Completed Troponin I Q3H Lab 08/31/23 23:00 Ordered VBG [Venous Blood Gas] Stat RT 08/31/23 17:27 Completed ECG Data Tracing #1: ECG Narrative: Independently interpreted by me, rate is 81, rhythm is regular, axis is borderline leftward deviated, no ST elevation in anatomical contiguous leads, QTc 381. MDM Narrative Medical Decision Narrative: In summary patient is a 52-year-old male past medical history described above presents emergency department for evaluation of chest pain. Patient is hemodynamically stable nontoxic-appearing upon arrival, afebrile. Differential diagnosis includes ACS, pneumothorax, among others. Workup will be conducted with hematologic labs, chest x-ray, EKG, serial troponins. Initial inventions include aspirin, nitroglycerin. Workup reviewed by me, hematologic labs remarkable for hyperglycemia with normal acid-base status, no concern for DKA however sugar is 566 for which he is being given a liter of crystalloid and 8 units of insulin. Serial troponins below detectable limit, no acetone detected. Patient underwent serial troponins which were nonactionable. Patient tolerated p.o. intake and repeat fingerstick was in the 170s. Upon repeat evaluation patient continued be well-appearing. The case was discussed with Dr. Dave, given the duration of chest pain he agrees that acute cardiac ischemia necessitating urgent intervention is unlikely. Given this patient will be started on Imdur for which first dose will be administered in the emergency department patient will follow-up 0900 on Saturday morning with Dr. Dave. Patient was instructed to monitor his glucose over the weekend and follow-up with Dr. Huitron early next week for antihyperglycemic modification and was given multiple return precautions and verbalized understanding.
[2023-08-31 17:00] LABS: Basophils # 0.2 K/mm3 (0-0.2); Basophils % 1.9 % (0.1-2.0); Eosinophils # 0.1 K/mm3 (0.0-0.4); Eosinophils % 1.3 % (0.1-12.0); Hematocrit 49.3 % (42.0-52.0); Hemoglobin 16.1 g/dL (14.1-18.0); Lymphocytes # 2.2 K/mm3 (0.7-4.5); Lymphocytes % 24.9 % (10-50); Mean Corpuscular HGB Conc 32.7 g/dL (31.8-35.4); Mean Corpuscular Hemoglobin 29.3 pg (27.0-31.2); Mean Corpuscular Volume 89.9 fl (80-94); Mean Platelet Volume 9.1 fl (7.4-10.4); Monocytes # 0.4 K/mm3 (0.1-1.0); Monocytes % 4.5 % (1.7-9.3); Neutrophils % 67.5 % (37.0-80.0); Platelet Count 254 K/mm3 (142-424); Red Blood Count 5.49 M/mm3 (4.60-6.20); Red Cell Distribution Width 14.6 % (11.5-17.5)
[2023-08-31] MEDS: ASPIRIN 81MG CHEWABLE TABLET 324 MG PO (17:07)
[2023-08-31 17:14] LABS: Chloride 98 mmol/L (98-107)
[2023-08-31 17:15] LABS: Potassium 4.2 mmoL/L (3.5-5.1); Sodium 133 mmol/L (136-145)
[2023-08-31 17:17] LABS: Alanine Aminotransferase 36 U/L (12-78); Alkaline Phosphatase 169 U/L (38-126); Aspartate Amino Transferase 30 U/L (17-59); Bilirubin,Total 0.7 mg/dl (0.2-1.3); Blood Urea Nitrogen 25 mg/dl (9-20); Creatinine Clearance Estimated 114 mL/min (50-200); Estimated Glomerular Filt Rate 58 ml/min (>60); GFR (African American) 70 ML/MIN (>60)
[2023-08-31 17:18] LABS: Albumin Level 4.4 g/dl (3.5-5.0); Albumin/Globulin Ratio 1.5 (1.1-1.8); Anion Gap 16.2 mEq/L (5-15); Calcium 9.7 mg/dl (8.4-10.2); Carbon Dioxide 23 mmol/L (22.0-30.0); Total Protein,Serum 7.4 g/dl (6.3-8.2)
[2023-08-31 17:23] LABS: Glucose 566 mg/dl (74-100)
--- NOTE | 2023-08-31 17:24 | PC.NURSE ---
Vaishnavi from LAB called critical glucose result of 566. Repeated and verified and Dr. Iniguez notified.
[2023-08-31] MEDS: LACTATED RINGERS 1000ML 1,000 ML 999 ML IV (17:30)
[2023-08-31 17:32] LABS: Troponin I < 0.01 ng/ml (0.00-0.034)
[2023-08-31 17:35] LABS: Acetone, Serum (Rapid) None Detected (None Detect)
[2023-08-31 17:36] LABS: VBG Base Excess -3.2 mmol/L (-2.4-2.3); VBG HCO3 21.7 mmol/L (23-30); VBG Oxygen Saturation 95.2 % (50-70); VBG PCO2 36.2 mmol/L (35-51); VBG PO2 81.4 mmol/L (28-40); VBG Total CO2 22.8 mmol/L (23-27)
[2023-08-31 17:37] LABS: Lactate Venous 2.3 mmol/L (0.4-2.0)
[2023-08-31] MEDS: INSULIN HUMAN REGULAR 100 UNITS/ML 10ML VIAL 8 UNIT IVP (18:53)
--- NOTE | 2023-08-31 19:45 | PC.NURSE ---
pt refused morphone. pt states heis pain is not bad and he doesnt like meds that make him feel loopy
[2023-08-31 20:01] LABS: Troponin I < 0.01 ng/ml (0.00-0.034)
--- NOTE | 2023-08-31 21:29 | PC.NURSE ---
Dr. Dave paged
--- NOTE | 2023-08-31 21:32 | PC.NURSE ---
call from facial operator, Dr. Dave paged awaiting return call
[2023-08-31 21:36] LABS: Reflex Lactic Add Lactic Reflex
--- NOTE | 2023-08-31 21:50 | PC.NURSE ---
Dr. Dave paged again
--- NOTE | 2023-08-31 21:51 | PC.NURSE ---
ED doctor on phone with Dr. Dave at this time
[2023-08-31] MEDS: ISOSORBIDE MONO 30MG TAB.ER.24H 30 MG PO (22:23)
== END 2023-08-31 22:05 | disposition home or self-care (01) ==
PROVIDERS: Emergency Provider Emergency Medicine; PCP Family Medicine
DX: R07.9 Chest pain, unspecified (principal); E11.65 Type 2 diabetes mellitus with hyperglycemia; I11.9 Hypertensive heart disease without heart failure; I25.119 Atherosclerotic heart disease of native coronary artery with unspecified angina pectoris; E78.5 Hyperlipidemia, unspecified; Z95.5 Presence of coronary angioplasty implant and graft; Z79.84 Long term (current) use of oral hypoglycemic drugs
CPT/HCPCS: 71045; 80053; 82009; 82803; 84484; 85025; 93005; 96361; 96374; 96375; 99285

== ENCOUNTER 2023-09-06 08:27 | Day surgery (SDC) | payer OTHER, SELFPAY ==
[2023-09-06] VITALS (12 sets, daily range): BP systolic 96–134; BP diastolic 49–81; PULSE 66–89; RESP 16–20; TEMP 36.8; O2SAT 91–97; BMI 38.7
--- NOTE | 2023-09-06 07:12 | IR_ITS ---
APPROVED REPORT Patient Location: Outpatient PROCEDURES Left heart catheterization Left ventriculogram Selective coronary angiogram Drug-eluting stent deployment to the proximal to mid dominant right coronary artery INDICATION Accelerated angina pectoris, Coronary artery disease, Informed consent was obtained prior to the procedure. COMPLICATIONS NONE Estimated Blood Loss: LESS THAN 10 ML TECHNIQUE One percent lidocaine used to anesthetize the right anterior aspect of the wrist. The right radial artery was accessed via the Seldinger technique. A 6 [place] sheath was placed in the right radial artery. 2.5 mg of Verapamil, 800 mcg of nitroglycerin, 1mg Lidocaine and 5000 U Heparin were given through the arterial sheath. The papa catheter was also used to perform left heart catheterization, left ventriculogram and selective coronary angiogram. At the end of the diagnostic angiogram therapeutic heparin was administered giving a therapeutic ACT and the guide catheter was placed in the right coronary followed by Choice PT extra-support wire distally. A 4 mm x 38 mm Javy frontier stent was deployed at 24 cecile reducing the stenosis to 20%. A 4.5 x 8 mm noncompliant balloon was deployed at 24 cecile in the area of interest and stenotic area to further post dilate. Excellent angiograph results were obtained with ANNIKA-3 flow being present before and after the procedure. At the end the procedure the apparatus was removed the sheath was removed and hemostasis was achieved using TR banding patient was transferred to the postop putting in stable condition ANGIOGRAPHIC RESULTS The left main artery Normal The left anterior descending artery Has proximal 10 to 20% stenosis followed by proximal LAD stent which is widely patent with mild distal concentric in-stent restenosis with excellent proximal and distal transitioning. The circumflex artery Is nondominant gives rise to a moderate-sized ramus intermedius which has a proximal 30% stenosis followed by mid vessel 30 to 40% stenosis. The circumflex artery itself as a stent in the proximal to midportion which has a concentric 60 to 70% stenosis The right coronary artery Large and dominant has proximal 50% concentric in-stent restenosis with a focal proximal to mid vessel concentric 80% stenosis. Distally there are 30% stenoses throughout. The posterior descending artery is a large-caliber vessel and has a mid vessel 40% stenosis while the posterior lateral branch is also large and has a mid vessel 60 to 70% stenosis The [place] ventriculogram reveals Normal 65% The left ventricular end-diastolic pressure 25 mmHg IMPRESSION Moderate to severe disease in a small proximal circumflex artery which represents in-stent restenosis Severe in-stent restenosis within the large dominant right coronary with successful stenting reducing the severe disease to 0% with 1 large drug-eluting stent Moderate disease in the large posterior lateral branch and posterior descending artery Normal ejection fraction Elevated LVEDP PLAN 1. Dual antiplatelet therapy 2. Treatment of diastolic dysfunction 3. Patient appears to have significant intimal hyperplasia from drug-eluting stents. I am reluctant to stent the circumflex artery at this time as it is unlikely this is the etiology for patient's angina 4. It is almost certain the angina stems from the large dominant right coronary artery. The posterior lateral branch and posterior descending arteries are unlikely to be producing angina and I recommend medical management for those remaining lesions 5. Avoidance of tobacco products 6. Risk factor modification 7. LDL less than 55 to achieve that high intensity statin 8. Cardiac rehabilitation Electronically signed by : Gerber Dave MD 09/06/2023 12:20:32
[2023-09-06 09:12] LABS: Basophils # 0.1 K/mm3 (0-0.2); Basophils % 0.7 % (0.1-2.0); Eosinophils # 0.2 K/mm3 (0.0-0.4); Hematocrit 47.3 % (42.0-52.0); Hemoglobin 15.7 g/dL (14.1-18.0); Lymphocytes # 1.8 K/mm3 (0.7-4.5); Lymphocytes % 20.2 % (10-50); Mean Corpuscular HGB Conc 33.2 g/dL (31.8-35.4); Mean Corpuscular Hemoglobin 28.9 pg (27.0-31.2); Mean Corpuscular Volume 87.2 fl (80-94); Monocytes # 0.7 K/mm3 (0.1-1.0); Monocytes % 7.6 % (1.7-9.3); Neutrophils # 6.1 K/mm3 (1.8-7.8); Neutrophils % 69.5 % (37.0-80.0); Platelet Count 248 K/mm3 (142-424); Red Blood Count 5.42 M/mm3 (4.60-6.20); Red Cell Distribution Width 14.6 % (11.5-17.5); White Blood Count 8.8 K/mm3 (4.8-10.8)
[2023-09-06 09:23] LABS: Chloride 106 mmol/L (98-107); Potassium 3.8 mmoL/L (3.5-5.1); Sodium 137 mmol/L (136-145)
[2023-09-06 09:26] LABS: Anion Gap 13.8 mEq/L (5-15); Blood Urea Nitrogen 24 mg/dl (9-20); Carbon Dioxide 21 mmol/L (22.0-30.0); Creatinine Clearance Estimated 122 mL/min (50-200); Estimated Glomerular Filt Rate 63 ml/min (>60); GFR (African American) 76 ML/MIN (>60)
[2023-09-06 09:27] LABS: Calcium 9.4 mg/dl (8.4-10.2); Glucose 198 mg/dl (74-100)
--- NOTE | 2023-09-06 10:30 | SUR.PHASEII ---
updated family on patient status
[2023-09-06] MEDS: HEPARIN 1,000 UNITS/500ML NS (CATH LAB) 3000 UNIT IV (11:17)
[2023-09-06] MEDS: 0.9 % SODIUM CHLORIDE 500 ML 25 ML IV (11:17)
[2023-09-06] MEDS: HEPARIN 1,000 UNITS/ML 10ML VIAL (CATH LAB) 10000 UNIT IV (11:18)
[2023-09-06] MEDS: VERAPAMIL 2.5MG/ML 2ML VIAL 2.5 MG IV (11:18)
[2023-09-06] MEDS: LIDOCAINE 1% 10ML MDV 20 ML IJ (11:18)
[2023-09-06] MEDS: diphenhydrAMINE 50MG/ML VIAL 50 MG IV (11:18)
[2023-09-06] MEDS: NITROGLYCERIN 800MCG/8ML SYR (CATH LAB) 800 MCG IA (11:18)
[2023-09-06] MEDS: MIDAZOLAM HCL 1MG/1ML 5ML VIAL 1 MG IV (11:42)
[2023-09-06] MEDS: FENTANYL 100MCG/2ML VIAL 50 MCG IV (11:43)
--- NOTE | 2023-09-06 12:02 | SUR.PHASEII ---
Patient's family updated that he is out of procedure and that the doctor will be out to update them shortly.
[2023-09-06] MEDS: IOPAMIDOL-370 (76%);100ML BOTTLE 90 ML IV (12:33)
[2023-09-06 13:53] LABS: CATHL Activated Clotting Time 298 SEC (74-125)
== END 2023-09-06 14:39 | disposition home or self-care (01) ==
PROVIDERS: PCP Family Medicine; Visit Provider Internal Medicine
DX: I25.118 Atherosclerotic heart disease of native coronary artery with other forms of angina pectoris (principal); E78.5 Hyperlipidemia, unspecified; G47.33 Obstructive sleep apnea (adult) (pediatric); E11.69 Type 2 diabetes mellitus with other specified complication; I10 Essential (primary) hypertension; Z95.5 Presence of coronary angioplasty implant and graft; Z87.891 Personal history of nicotine dependence; Z79.899 Other long term (current) drug therapy; I25.2 Old myocardial infarction; Z79.85 Long-term (current) use of injectable non-insulin antidiabetic drugs
CPT/HCPCS: 80048; 85025; 85347; 92928; 93458; 99152; C1725; C1760; C1769; C1874; C9600; J1644; Q9967

== ENCOUNTER 2023-09-09 11:36 | Outpatient (CLI) | payer OTHER, SELFPAY ==
[2023-09-09 11:57] LABS: Basophils # 0.1 K/mm3 (0-0.2); Basophils % 0.8 % (0.1-2.0); Eosinophils # 0.1 K/mm3 (0.0-0.4); Eosinophils % 1.2 % (0.1-12.0); Hematocrit 47.6 % (42.0-52.0); Hemoglobin 15.8 g/dL (14.1-18.0); Lymphocytes # 1.7 K/mm3 (0.7-4.5); Lymphocytes % 18.8 % (10-50); Mean Corpuscular HGB Conc 33.3 g/dL (31.8-35.4); Mean Corpuscular Hemoglobin 29.1 pg (27.0-31.2); Mean Corpuscular Volume 87.4 fl (80-94); Mean Platelet Volume 8.5 fl (7.4-10.4); Monocytes # 0.5 K/mm3 (0.1-1.0); Neutrophils # 6.4 K/mm3 (1.8-7.8); Neutrophils % 73.2 % (37.0-80.0); Platelet Count 260 K/mm3 (142-424); Red Blood Count 5.45 M/mm3 (4.60-6.20); Red Cell Distribution Width 14.7 % (11.5-17.5); White Blood Count 8.8 K/mm3 (4.8-10.8)
[2023-09-09 13:27] LABS: Anion Gap 14.4 mEq/L (5-15); Blood Urea Nitrogen 20 mg/dl (9-20); Calcium 9.8 mg/dl (8.4-10.2); Carbon Dioxide 28 mmol/L (22.0-30.0); Chloride 99 mmol/L (98-107); Estimated Glomerular Filt Rate 63 ml/min (>60); GFR (African American) 76 ML/MIN (>60); Glucose 131 mg/dl (74-100); Potassium 4.4 mmoL/L (3.5-5.1); Sodium 137 mmol/L (136-145)
== END 2023-09-09 23:59 | disposition home or self-care (01) ==
LOC: LAB 11:37
PROVIDERS: Student in an Organized Health Care Education/Training Program; PCP Family Medicine; Visit Provider Internal Medicine
DX: I25.10 Atherosclerotic heart disease of native coronary artery without angina pectoris (principal); Z95.5 Presence of coronary angioplasty implant and graft
CPT/HCPCS: 36415; 80048; 85025

== ENCOUNTER 2023-09-17 09:14 | Outpatient (CLI) | payer OTHER, SELFPAY ==
[2023-09-17 10:16] LABS: Alanine Aminotransferase 33 U/L (12-78); Albumin Level 4.3 g/dl (3.5-5.0); Alkaline Phosphatase 72 U/L (38-126); Aspartate Amino Transferase 34 U/L (17-59); Bilirubin,Indirect 0.5 mg/dL (0.0-0.9); Bilirubin,Total 0.5 mg/dl (0.2-1.3); Bilirubin,Unconjugated 0.5 mg/dL (0.0-1.1); Chol/HDL Ratio 3.6 (1-3.5); Cholesterol 104 mg/dl (140-200); HDL Cholesterol 29 mg/dl (40-60); Total Protein,Serum 6.7 g/dl (6.3-8.2); Triglycerides 260 mg/dl (30-150); VLDL Cholesterol 52 mg/dL (0-40)
[2023-09-17 10:27] LABS: Direct LDL Cholesterol 52.92 mg/dL (100-129)
[2023-09-17 10:37] LABS: Hemoglobin A1C 10.6 % (4.0-6.0)
== END 2023-09-17 23:59 | disposition home or self-care (01) ==
LOC: LAB 09:15
PROVIDERS: PCP Family Medicine; Visit Provider Nurse Practitioner Family
DX: R07.9 Chest pain, unspecified (principal); R94.39 Abnormal result of other cardiovascular function study; E78.5 Hyperlipidemia, unspecified; E11.69 Type 2 diabetes mellitus with other specified complication; I10 Essential (primary) hypertension; Z79.84 Long term (current) use of oral hypoglycemic drugs; Z79.85 Long-term (current) use of injectable non-insulin antidiabetic drugs
CPT/HCPCS: 36415; 80061; 80076; 83036

== ENCOUNTER 2024-02-12 15:24 | Outpatient (CLI) | payer OTHER, SELFPAY ==
[2024-02-12 16:20] LABS: Basophils # 0.1 K/mm3 (0-0.2); Basophils % 0.9 % (0.1-2.0); Eosinophils # 0.3 K/mm3 (0.0-0.4); Eosinophils % 2.1 % (0.1-12.0); Hematocrit 48.6 % (42.0-52.0); Hemoglobin 16.4 g/dL (14.1-18.0); Lymphocytes % 24.8 % (10-50); Mean Corpuscular HGB Conc 33.7 g/dL (31.8-35.4); Mean Corpuscular Hemoglobin 28.7 pg (27.0-31.2); Mean Corpuscular Volume 85.3 fl (80-94); Mean Platelet Volume 7.8 fl (7.4-10.4); Monocytes # 0.7 K/mm3 (0.1-1.0); Monocytes % 5.7 % (1.7-9.3); Neutrophils # 8.1 K/mm3 (1.8-7.8); Neutrophils % 66.5 % (37.0-80.0); Platelet Count 261 K/mm3 (142-424); Red Cell Distribution Width 14.7 % (11.5-17.5); White Blood Count 12.2 K/mm3 (4.8-10.8)
[2024-02-12 16:29] LABS: Albumin Level 4.8 g/dl (3.5-5.0)
[2024-02-12 16:29] LABS: Chloride 103 mmol/L (98-107)
[2024-02-12 16:30] LABS: Albumin Level 4.8 g/dl (3.5-5.0); Potassium 4.1 mmoL/L (3.5-5.1); Sodium 140 mmol/L (136-145)
[2024-02-12 16:32] LABS: Alanine Aminotransferase 26 U/L (12-78); Alkaline Phosphatase 63 U/L (38-126); Aspartate Amino Transferase 27 U/L (17-59); Bilirubin,Direct 0.2 mg/dl (0.0-0.4); Bilirubin,Indirect 0.5 mg/dL (0.0-0.9); Bilirubin,Total 0.7 mg/dl (0.2-1.3); Bilirubin,Unconjugated 0.5 mg/dL (0.0-1.1); Chol/HDL Ratio 3.9 (1-3.5); Cholesterol 136 mg/dl (140-200); HDL Cholesterol 35 mg/dl (40-60); Magnesium 2.1 mg/dl (1.6-2.3); Total Protein,Serum 7.8 g/dl (6.3-8.2); Triglycerides 287 mg/dl (30-150); VLDL Cholesterol 57 mg/dL (0-40)
[2024-02-12 16:32] LABS: Blood Urea Nitrogen 28 mg/dl (9-20); Estimated Glomerular Filt Rate 57 ml/min (>60); GFR (African American) 69 ML/MIN (>60)
[2024-02-12 16:33] LABS: Alanine Aminotransferase 26 U/L (12-78); Albumin/Globulin Ratio 1.8 (1.1-1.8); Alkaline Phosphatase 63 U/L (38-126); Anion Gap 16.1 mEq/L (5-15); Aspartate Amino Transferase 24 U/L (17-59); Bilirubin,Total 0.7 mg/dl (0.2-1.3); Calcium 9.8 mg/dl (8.4-10.2); Carbon Dioxide 25 mmol/L (22.0-30.0); Globulin 2.6 g/dL (1.3-3.2); Glucose 86 mg/dl (74-100); Total Protein,Serum 7.4 g/dl (6.3-8.2)
[2024-02-12 16:43] LABS: Direct LDL Cholesterol 59.03 mg/dL (100-129)
[2024-02-12 16:46] LABS: Creatinine,Urine Random 64 mg/dL (Not Estab.)
[2024-02-12 16:47] LABS: Troponin I < 0.01 ng/ml (0.00-0.034)
[2024-02-12 16:48] LABS: Microalbumin/Creatinine Ratio 15.9
[2024-02-12 16:51] LABS: Free T4 (Free Thyroxine) 1.29 ng/dl (0.78-2.19)
[2024-02-12 17:38] LABS: Hemoglobin A1C 7.1 % (4.0-6.0)
== END 2024-02-12 23:59 | disposition home or self-care (01) ==
LOC: LAB 15:51
PROVIDERS: PCP Family Medicine; Referring Provider Internal Medicine Endocrinology, Diabetes & Metabolism; Visit Provider Nurse Practitioner Family
DX: E78.5 Hyperlipidemia, unspecified (principal); E11.69 Type 2 diabetes mellitus with other specified complication; G47.33 Obstructive sleep apnea (adult) (pediatric); I10 Essential (primary) hypertension; Z95.5 Presence of coronary angioplasty implant and graft; I25.118 Atherosclerotic heart disease of native coronary artery with other forms of angina pectoris; Z87.891 Personal history of nicotine dependence; Z79.84 Long term (current) use of oral hypoglycemic drugs; Z79.85 Long-term (current) use of injectable non-insulin antidiabetic drugs
CPT/HCPCS: 36415; 80050; 80053; 80061; 80076; 82043; 82570; 83036; 83735; 84439; 84443; 84484; 85025

== ENCOUNTER 2024-02-21 09:01 | Day surgery (SDC) | payer OTHER, SELFPAY ==
[2024-02-21] VITALS (14 sets, daily range): BP systolic 91–127; BP diastolic 57–81; PULSE 73–79; RESP 16–20; TEMP 36.9; O2SAT 92–100; BMI 37.5
--- NOTE | 2024-02-21 07:12 | IR_ITS ---
APPROVED REPORT Patient Location: Outpatient Industrial Maintenance Mechanic: Juanjose Celestin RT (R) PROCEDURES Selective coronary angiogram Drug-eluting stent deployment to the posterior lateral ventricular branch Drug-eluting stent deployment to the posterior descending artery INDICATION Coronary artery disease, Recalcitrant angina pectoris despite 4 antianginal medications, Informed consent was obtained prior to the procedure. COMPLICATIONS NONE Estimated Blood Loss: LESS THAN 10 ML TECHNIQUE One percent lidocaine used to anesthetize the right anterior aspect of the wrist. The right radial artery was accessed via the Seldinger technique. A 6 [place] sheath was placed in the right radial artery. 2.5 mg of Verapamil, 800 mcg of nitroglycerin, 1mg Lidocaine and 5000 U Heparin were given through the arterial sheath. The 6 [place] JL 3 guide catheter was used to perform selective coronary angiogram. Patient was taking 4 antianginal medications and continued to have angina. Because of this it was decided to stent the large posterior lateral and posterior descending arteries. Therapeutic heparin was administered giving a therapeutic ACT and the guide catheter was placed in the right coronary artery followed by Choice PT extra-support wire placed into the posterior lateral branch. The 2.25 x 22 mm Javy frontier stent was deployed at 20 cecile reducing the stenosis to 0%. There was other straightening of the artery or geographic miss distally therefore an additional 2.25 x 12 mm [place] frontier stent was then placed distal to the for stent yet still overlapping and deployed at 14 cecile. The balloon was brought back and deployed at 24 cecile to mesh the stents and further post dilate. ANNIKA-3 flow was present before and after the procedure. The wire was pulled back and placed into the posterior descending artery where a 2.5 x 26 mm Javy frontier stent was deployed at 20 cecile. There was an additional stenosis distally therefore an additional 2.5 x 12 mm [place] frontier stent was placed distal to the for stent yet still overlapping and deployed to 14 cecile. The balloon was brought back between the 2 stents and deployed at 20 cecile to match the stents and post dilate. ANNIKA-3 flow was present before and after the procedure at the end the procedure the apparatus was removed the sheath was removed and hemostasis was achieved using TR banding patient was transferred to the postop putting in stable condition ANGIOGRAPHIC RESULTS The left main artery Normal The left anterior descending artery Has proximal 10% stenosis with stents throughout the proximal and midportion which are widely patent with diffuse 30% concentric in-stent restenosis. There is excellent distal transitioning The circumflex artery Is nondominant and has stents in the proximal to mid segment. The proximal portion of the stent has a concentric 50% in-stent restenotic lesion. There is excellent proximal distal transitioning. A medium sized ramus intermedius has a proximal 20 to 30% and mid vessel 30% stenosis The right coronary artery Large and dominant and has stents in the proximal to mid segment which are widely patent with minimal in-stent restenosis and excellent proximal distal transitioning. There is additional 10 and 20% luminal irregularities in the distal right coronary. A large posterior lateral branch has an eccentric 80 to 90% stenosis followed by 50% stenosis. Large posterior descending artery has tandem 70 and 50% stenoses The [place] ventriculogram reveals Not performed The left ventricular end-diastolic pressure Not measured IMPRESSION Coronary artery disease as described above Successful stenting of large posterior lateral branch severe disease reduced to 0% with 2 contiguous drug-eluting stents Successful stenting of large posterior descending artery severe disease reduced to 0% with 2 contiguous drug-eluting stents PLAN 1. Dual antiplatelet therapy 2. Aggressive control of diabetes is required 3. LDL less than 55 to achieve that high intensity statin 4. Avoidance of tobacco products 5. Cardiac rehabilitation Electronically signed by : Gerber Dave MD 02/21/2024 11:58:27
[2024-02-21 08:53] LABS: Basophils # 0.1 K/mm3 (0-0.2); Basophils % 1.1 % (0.1-2.0); Eosinophils # 0.2 K/mm3 (0.0-0.4); Hematocrit 45.7 % (42.0-52.0); Hemoglobin 15.6 g/dL (14.1-18.0); Lymphocytes # 1.8 K/mm3 (0.7-4.5); Mean Corpuscular Hemoglobin 28.5 pg (27.0-31.2); Mean Corpuscular Volume 83.6 fl (80-94); Mean Platelet Volume 8.1 fl (7.4-10.4); Monocytes # 0.5 K/mm3 (0.1-1.0); Monocytes % 6.2 % (1.7-9.3); Neutrophils # 5.5 K/mm3 (1.8-7.8); Neutrophils % 68.7 % (37.0-80.0); Platelet Count 262 K/mm3 (142-424); Red Blood Count 5.47 M/mm3 (4.60-6.20); White Blood Count 8.1 K/mm3 (4.8-10.8)
[2024-02-21 08:56] LABS: Chloride 106 mmol/L (98-107); Potassium 4.3 mmoL/L (3.5-5.1); Sodium 140 mmol/L (136-145)
[2024-02-21 08:58] LABS: Blood Urea Nitrogen 18 mg/dl (9-20)
[2024-02-21 08:59] LABS: Anion Gap 12.3 mEq/L (5-15); Calcium 9.3 mg/dl (8.4-10.2); Carbon Dioxide 26 mmol/L (22.0-30.0); Creatinine Clearance Estimated 108 mL/min (50-200); Estimated Glomerular Filt Rate 57 ml/min (>60); GFR (African American) 69 ML/MIN (>60); Glucose 179 mg/dl (74-100)
[2024-02-21] MEDS: diphenhydrAMINE 50MG/ML VIAL 50 MG IV (10:11)
[2024-02-21] MEDS: LIDOCAINE 1% 10ML MDV 20 ML IJ (10:11)
[2024-02-21] MEDS: VERAPAMIL 2.5MG/ML 2ML VIAL 2.5 MG IV (10:11)
[2024-02-21] MEDS: HEPARIN 1,000 UNITS/ML 10ML VIAL (CATH LAB) 10000 UNIT IV ×2 (10:11→10:47)
[2024-02-21] MEDS: HEPARIN 1,000 UNITS/500ML NS (CATH LAB) 3000 UNIT IV (10:11)
[2024-02-21] MEDS: NITROGLYCERIN 800MCG/8ML SYR (CATH LAB) 800 MCG IA (10:12)
[2024-02-21] MEDS: MIDAZOLAM HCL 1MG/ML 5ML VIAL 1 MG IV (10:56)
[2024-02-21] MEDS: FENTANYL 100MCG/2ML VIAL 50 MCG IV (10:57)
[2024-02-21] MEDS: 0.9 % SODIUM CHLORIDE 500 ML 25 ML IV (12:39)
[2024-02-21] MEDS: IOPAMIDOL-370 (76%);100ML BOTTLE 110 ML IV (13:57)
[2024-02-21 13:59] LABS: CATHL Activated Clotting Time 310 SEC (74-125)
== END 2024-02-21 14:00 | disposition home or self-care (01) ==
PROVIDERS: PCP Family Medicine; Visit Provider Internal Medicine
DX: I25.118 Atherosclerotic heart disease of native coronary artery with other forms of angina pectoris (principal); T82.855A Stenosis of coronary artery stent, initial encounter; I10 Essential (primary) hypertension; I25.2 Old myocardial infarction; E11.9 Type 2 diabetes mellitus without complications; Z79.84 Long term (current) use of oral hypoglycemic drugs; Z79.899 Other long term (current) drug therapy; Z79.85 Long-term (current) use of injectable non-insulin antidiabetic drugs; Z95.5 Presence of coronary angioplasty implant and graft; Y83.1 Surgical operation with implant of artificial internal device as the cause of abnormal reaction of the patient, or of later complication, without mention of misadventure at the time of the procedure
CPT/HCPCS: 80048; 85025; 85347; 92928; 92929; 93454; 99152; 99153; C1725; C1760; C1769; C1874; C9600; C9601; J1200; J1644; J2250; J3010; Q9967

== ENCOUNTER 2024-02-25 17:13 | Outpatient (CLI) | payer OTHER, SELFPAY ==
[2024-02-25 18:16] LABS: Chloride 97 mmol/L (98-107); Potassium 3.3 mmoL/L (3.5-5.1); Sodium 135 mmol/L (136-145)
[2024-02-25 18:19] LABS: Blood Urea Nitrogen 25 mg/dl (9-20); Estimated Glomerular Filt Rate 53 ml/min (>60); GFR (African American) 64 ML/MIN (>60)
[2024-02-25 18:20] LABS: Anion Gap 16.3 mEq/L (5-15); Calcium 9.6 mg/dl (8.4-10.2); Carbon Dioxide 25 mmol/L (22.0-30.0); Glucose 209 mg/dl (74-100)
[2024-02-25 18:30] LABS: Basophils # 0.1 K/mm3 (0-0.2); Basophils % 0.8 % (0.1-2.0); Eosinophils # 0.2 K/mm3 (0.0-0.4); Eosinophils % 1.8 % (0.1-12.0); Hematocrit 49.3 % (42.0-52.0); Hemoglobin 16.6 g/dL (14.1-18.0); Lymphocytes % 28.3 % (10-50); Mean Corpuscular HGB Conc 33.6 g/dL (31.8-35.4); Mean Corpuscular Hemoglobin 28.6 pg (27.0-31.2); Mean Corpuscular Volume 85.1 fl (80-94); Mean Platelet Volume 8.3 fl (7.4-10.4); Monocytes # 0.7 K/mm3 (0.1-1.0); Monocytes % 6.8 % (1.7-9.3); Neutrophils # 6.5 K/mm3 (1.8-7.8); Neutrophils % 62.4 % (37.0-80.0); Platelet Count 295 K/mm3 (142-424); Red Blood Count 5.79 M/mm3 (4.60-6.20); Red Cell Distribution Width 14.8 % (11.5-17.5); White Blood Count 10.5 K/mm3 (4.8-10.8)
== END 2024-02-25 23:59 | disposition home or self-care (01) ==
LOC: LAB 17:14
PROVIDERS: PCP Family Medicine; Visit Provider Internal Medicine
DX: I25.10 Atherosclerotic heart disease of native coronary artery without angina pectoris (principal); I10 Essential (primary) hypertension
CPT/HCPCS: 36415; 80048; 85025

== ENCOUNTER 2024-08-21 08:23 | Day surgery (SDC) | payer OTHER, SELFPAY ==
[2024-08-21] VITALS (12 sets, daily range): BP systolic 95–161; BP diastolic 45–97; PULSE 64–95; RESP 16–18; TEMP 36.3–37; O2SAT 92–98; BMI 37.8
--- NOTE | 2024-08-21 07:14 | IR_ITS ---
APPROVED REPORT Patient Location: Outpatient PROCEDURES Left heart catheterization Left ventriculogram Selective coronary angiogram Drug-eluting stent deployment to the proximal circumflex artery Drug-eluting stent deployment to the second obtuse marginal artery INDICATION Coronary artery disease, Worsening angina pectoris Informed consent was obtained prior to the procedure. COMPLICATIONS NONE Estimated Blood Loss: LESS THAN 10 ML TECHNIQUE One percent lidocaine used to anesthetize the right anterior aspect of the wrist. The right radial artery was accessed via the Seldinger technique. A 6 Libyan sheath was placed in the right radial artery. 2.5 mg of Verapamil, 800 mcg of nitroglycerin, 1mg Lidocaine and 5000 U Heparin were given through the arterial sheath. The JL 3 catheter was also used to perform left heart catheterization, left ventriculogram and selective coronary angiogram. At the end of the procedure the guide catheter was placed in the left main artery followed by Choice PT extra-support wire placed on the circumflex artery. A 2.25 x 18 mm Javy frontier stent was deployed at 24 cecile in the proximal circumflex artery reducing the stenosis to 0%. An additional 2 mm x 12 mm [place] frontier stent was placed in the second obtuse marginal artery and deployed at 20 cecile reducing the stenosis to 0% the balloon was brought back and deployed at 25 cecile to further post dilate. At the end the procedure the apparatus was removed the sheath was removed and hemostasis was achieved using TR banding patient was transferred to the postop putting in stable condition ANGIOGRAPHIC RESULTS The left main artery Normal The left anterior descending artery Has stents in the proximal to mid segment which are widely patent in the proximal segment with 30 to 40% concentric in-stent restenosis in the midsegment. The distal transition is excellent and the LAD is widely patent although small caliber as it approaches the apex The circumflex artery Is nondominant has a stent in the proximal segment which has a proximal 80 to 90% stenosis. The second obtuse marginal artery has a proximal 80% concentric stenosis The right coronary artery Is a dominant vessel and has a stent in the proximal to mid segment which has proximal 20% concentric restenosis with a 30 to 40% mid vessel stent concentric in-stent restenotic lesion. Distally there is excellent transitioning the PDA and posterior lateral branch are large and widely patent The ARITA ventriculogram reveals Normal 60% The left ventricular end-diastolic pressure Elevated at 25 mmHg IMPRESSION Severe disease in the proximal circumflex artery and severe disease in the second obtuse marginal artery Successful stenting the proximal circumflex artery and second obtuse marginal artery severe disease reduced to 0% with 2 drug-eluting stents Normal ejection fraction Moderately elevated LVEDP Moderate in-stent restenosis in the mid LAD and proximal dominant right coronary PLAN 1. Antiplatelet therapy 2. Recommend sleep study 3. Consider Ozempic 4. Tighter control of diabetes 5. LDL less than 55 to be achieved with high intensity statin 6. Avoidance of tobacco products 7. Risk factor modification Electronically signed by : Gerber Dave MD 08/21/2024 11:56:30
[2024-08-21 08:51] LABS: Basophils # 0.1 K/mm3 (0-0.2); Basophils % 0.8 % (0.1-2.0); Eosinophils # 0.2 Kmm3 (0.0-0.4); Eosinophils % 2.6 % (0.1-12.0); Hematocrit 43.9 % (42.0-52.0); Hemoglobin 14.8 g/dL (14.1-18.0); Immature Granulocytes # 0.07 10^3uL; Lymphocytes # 1.8 K/mm3 (0.7-4.5); Lymphocytes % 24.9 % (10-50); Mean Corpuscular HGB Conc 33.7 g/dL (31.8-35.4); Mean Corpuscular Hemoglobin 28.1 pg (27.0-31.2); Mean Corpuscular Volume 83.5 fl (80-94); Mean Platelet Volume 10.2 fl (7.4-10.4); Monocytes # 0.8 K/mm3 (0.1-1.0); Monocytes % 11.5 % (1.7-9.3); Neutrophils # 4.3 K/mm3 (1.8-7.8); Neutrophils % 59.2 % (37.0-80.0); Nucleated Red Blood Cells # 0 10^3/uL; Nucleated Red Blood Cells % 0 %; Platelet Count 239 K/mm3 (142-424); Red Blood Count 5.26 M/mm3 (4.60-6.20); Red Cell Distribution Width 14.4 % (11.5-17.5); Red Cell Distribution Width-SD 43.7 fL; White Blood Count 7.2 K/mm3 (4.8-10.8)
[2024-08-21 09:01] LABS: Anion Gap 10.2 mEq/L (5-15); Blood Urea Nitrogen 26 mg/dl (9-20); Calcium 9.3 mg/dl (8.4-10.2); Carbon Dioxide 23 mmol/L (22.0-30.0); Chloride 109 mmol/L (98-107); Creatinine Clearance Estimated 118 mL/min (50-200); Estimated Glomerular Filt Rate 63 ml/min (>60); GFR (African American) 76 ML/MIN (>60); Glucose 177 mg/dl (74-100); Potassium 4.2 mmoL/L (3.5-5.1); Sodium 138 mmol/L (136-145)
[2024-08-21] MEDS: HEPARIN 1,000 UNITS/500ML NS (CATH LAB) 3000 UNIT IV (09:49)
[2024-08-21] MEDS: LIDOCAINE 1% 10ML MDV 10 ML IJ (09:49)
[2024-08-21] MEDS: 0.9 % SODIUM CHLORIDE 500 ML 25 ML IV (09:50)
[2024-08-21] MEDS: diphenhydrAMINE 50MG/ML VIAL 50 MG IV (09:50)
[2024-08-21] MEDS: NITROGLYCERIN 800MCG/8ML SYR (CATH LAB) 800 MCG IA (09:50)
[2024-08-21] MEDS: VERAPAMIL 2.5MG/ML 2ML VIAL 2.5 MG IV (09:50)
[2024-08-21] MEDS: HEPARIN 1,000 UNITS/ML 10ML VIAL (CATH LAB) 5000 UNIT IV ×2 (09:50→10:19)
[2024-08-21] MEDS: MIDAZOLAM HCL 1MG/ML 5ML VIAL 1 MG IV (10:17)
[2024-08-21] MEDS: FENTANYL 100MCG/2ML VIAL 50 MCG IV (10:17)
[2024-08-21] MEDS: IOPAMIDOL-370 (76%);100ML BOTTLE 125 ML IV (13:01)
[2024-08-21 13:06] LABS: CATHL Activated Clotting Time > 400 SEC (74-125)
== END 2024-08-21 13:41 | disposition home or self-care (01) ==
PROVIDERS: PCP Family Medicine; Visit Provider Internal Medicine
PROC: 4A023N7 Measurement of Cardiac Sampling and Pressure, Left Heart, Percutaneous Approach (ICD-10-PCS; CPT 93452; principal; 2024-08-21 08:45)
DX: I25.118 Atherosclerotic heart disease of native coronary artery with other forms of angina pectoris (principal); I77.1 Stricture of artery; T82.855A Stenosis of coronary artery stent, initial encounter; E11.9 Type 2 diabetes mellitus without complications; I25.2 Old myocardial infarction; Z88.0 Allergy status to penicillin; Z88.8 Allergy status to other drugs, medicaments and biological substances; Z79.82 Long term (current) use of aspirin; Z79.84 Long term (current) use of oral hypoglycemic drugs; Z79.85 Long-term (current) use of injectable non-insulin antidiabetic drugs; Z79.899 Other long term (current) drug therapy; I10 Essential (primary) hypertension; Z95.5 Presence of coronary angioplasty implant and graft; G47.33 Obstructive sleep apnea (adult) (pediatric); E78.5 Hyperlipidemia, unspecified; Z87.891 Personal history of nicotine dependence; Y83.1 Surgical operation with implant of artificial internal device as the cause of abnormal reaction of the patient, or of later complication, without mention of misadventure at the time of the procedure
CPT/HCPCS: 80048; 85025; 85347; 92928; 92929; 93458; 99152; 99153; C1725; C1769; C1874; C9600; C9601; J1200; J1644; J3010; Q9967

== ENCOUNTER 2024-08-22 16:36 | Outpatient (CLI) | payer OTHER, SELFPAY ==
[2024-08-22 17:06] LABS: Microscopic, Urine URINE MICROSCOPIC (MICROSCOPIC)
[2024-08-22 17:28] LABS: Appearance,Urine CLEAR (Clear); Bilirubin,Urine Negative (Negative); Blood, Urine Negative (Negative); Color,Urine YELLOW (Yellow); Glucose,Urine (UA) 3+ (Negative); Ketones,Urine Negative (Negative); Leukocyte Esterase,Urine Negative (Negative); Nitrate,Urine Negative (Negative); PH,Urine 6.5 (5.0-8.5); Protein,Urine Negative (Negative); Specific Gravity, Urine 1.015 (1.005-1.030); Urobilinogen,Urine 0.2 EU/dl (0.2)
[2024-08-22 17:35] LABS: Creatinine,Urine Random 47 mg/dL (Not Estab.)
[2024-08-22 17:37] LABS: Basophils # 0.1 K/mm3 (0-0.2); Basophils % 0.7 % (0.1-2.0); Eosinophils # 0.2 Kmm3 (0.0-0.4); Eosinophils % 2.6 % (0.1-12.0); Hemoglobin 15.1 g/dL (14.1-18.0); Immature Granulocytes # 0.06 10^3uL; Immature Granulocytes % 0.7 %; Lymphocytes # 2.2 K/mm3 (0.7-4.5); Lymphocytes % 25.9 % (10-50); Mean Corpuscular HGB Conc 33.6 g/dL (31.8-35.4); Mean Corpuscular Hemoglobin 28.3 pg (27.0-31.2); Mean Corpuscular Volume 84.4 fl (80-94); Mean Platelet Volume 10.4 fl (7.4-10.4); Monocytes # 0.8 K/mm3 (0.1-1.0); Monocytes % 9.9 % (1.7-9.3); Neutrophils # 5.1 K/mm3 (1.8-7.8); Neutrophils % 60.2 % (37.0-80.0); Nucleated Red Blood Cells # 0 10^3/uL; Nucleated Red Blood Cells % 0 %; Platelet Count 268 K/mm3 (142-424); Red Blood Count 5.33 M/mm3 (4.60-6.20); Red Cell Distribution Width 14.5 % (11.5-17.5); Red Cell Distribution Width-SD 43.9 fL; White Blood Count 8.5 K/mm3 (4.8-10.8)
[2024-08-22 17:40] LABS: Squamous Epithelial Cell,Urine Occasional #/hpf (0-5)
[2024-08-22 17:41] LABS: Microalbumin < 6.000 mg/L (0-16.7)
[2024-08-22 18:15] LABS: Albumin Level 4.4 g/dl (3.5-5.0); Chloride 106 mmol/L (98-107); Chloride 107 mmol/L (98-107); Sodium 137 mmol/L (136-145)
[2024-08-22 18:16] LABS: Potassium 4.2 mmoL/L (3.5-5.1); Sodium 138 mmol/L (136-145)
[2024-08-22 18:17] LABS: Blood Urea Nitrogen 18 mg/dl (9-20); Estimated Glomerular Filt Rate 69 ml/min (>60); GFR (African American) 84 ML/MIN (>60); Hemoglobin A1C 8.3 % (4.0-6.0)
[2024-08-22 18:18] LABS: Alanine Aminotransferase 38 U/L (12-78); Albumin/Globulin Ratio 1.8 (1.1-1.8); Alkaline Phosphatase 119 U/L (38-126); Aspartate Amino Transferase 31 U/L (17-59); Bilirubin,Total 0.3 mg/dl (0.2-1.3); Blood Urea Nitrogen 18 mg/dl (9-20); Calcium 9.5 mg/dl (8.4-10.2); Carbon Dioxide 25 mmol/L (22.0-30.0); Cholesterol 96 mg/dl (140-200); Estimated Glomerular Filt Rate 69 ml/min (>60); GFR (African American) 84 ML/MIN (>60); Globulin 2.4 g/dL (1.3-3.2); Glucose 103 mg/dl (74-100); HDL Cholesterol 32 mg/dl (40-60); Total Protein,Serum 6.8 g/dl (6.3-8.2); Triglycerides 304 mg/dl (30-150); VLDL Cholesterol 61 mg/dL (0-40)
[2024-08-22 18:19] LABS: Anion Gap 10.2 mEq/L (5-15); Calcium 9.5 mg/dl (8.4-10.2); Carbon Dioxide 26 mmol/L (22.0-30.0); Glucose 103 mg/dl (74-100)
== END 2024-08-22 23:59 | disposition home or self-care (01) ==
LOC: LAB.DROPOF 16:49
PROVIDERS: Internal Medicine Endocrinology, Diabetes & Metabolism; PCP Family Medicine; Visit Provider Internal Medicine
DX: I25.10 Atherosclerotic heart disease of native coronary artery without angina pectoris (principal); I10 Essential (primary) hypertension; E11.65 Type 2 diabetes mellitus with hyperglycemia; E78.5 Hyperlipidemia, unspecified; Z95.5 Presence of coronary angioplasty implant and graft
CPT/HCPCS: 36415; 80048; 80053; 80061; 81001; 82043; 82570; 83036; 85025

== ENCOUNTER 2024-09-08 14:47 | Outpatient (CLI) | payer OTHER, SELFPAY | END 2024-09-08 23:59 | disposition home or self-care (01) | LOC: DIETICIAN 14:47 | PROVIDERS: PCP Family Medicine; Visit Provider Nurse Practitioner Family | DX: E11.69 Type 2 diabetes mellitus with other specified complication (principal) | CPT/HCPCS: 97802 ==

== ENCOUNTER 2024-09-27 09:00 | Emergency (ER) | payer OTHER, SELFPAY ==
[2024-09-27] VITALS (8 sets, daily range): BP systolic 108–152; BP diastolic 53–98; PULSE 67–85; RESP 16–18; TEMP 37.1; O2SAT 95–98; BMI 37.3
--- OUTSIDE RECORDS SUMMARY | 2024-09-27 09:15 | XMS_ITS | Clinical Summary ---
Author Organization [facility] Address [address] [facility] [address] [place] [address] Phone Care Team Providers Care Agent Producer Name Role Phone Gerber Dave MD Primary Care Provider [phone] Allergies Active Allergy Reactions Criticality Noted Date Comments Isosorbide Other (See Comments) 06/13/2022 Penicillins Other (See Comments) 02/29/2016 Medications indomethacin (INDOCIN) 25 mg Oral Capsule Take 25 mg by mouth 3 times daily. 07/17/19 23 Active glimepiride (AMARYL) 2 mg Oral Tablet Take 2 mg by mouth daily. 07/11/19 23 Active BRILINTA 90 mg Oral Tablet Take 90 mg by mouth 2 times daily. 05/08/19 23 Active amLODIPine (NORVASC) 5 mg Oral Tablet Take 5 mg by mouth daily. Active atorvastatin (LIPITOR) 40 mg Oral Tablet Take 40 mg by mouth nightly. at bedtime 07/11/19 23 Active ranolazine (RANEXA) 500 mg Oral Tablet Sustained Release 12 hr Take 500 mg by mouth 2 times daily. 07/11/19 23 Active lisinopriL (PRINIVIL;ZESTRIL) 20 mg Oral Tablet tablet Take 20 mg by mouth daily. 07/11/19 23 Active fenofibrate (LOFIBRA) 160 mg Oral Tablet Take 160 mg by mouth daily. 07/11/19 23 Active carvediloL (COREG) 3.125 mg Oral Tablet Take 3.125 mg by mouth 2 times daily. 06/27/19 23 Active lisinopriL-hydroch lorothiazide (PRINZIDE;ZESTORET IC) 20-25 mg Oral Tablet Take 1 Tablet by mouth every morning. Active aspirin 81 mg Oral Capsule Take 81 mg by mouth daily. Active valACYclovir (VALTREX) 1 gram Oral Tablet Take 500 mg by mouth as needed. Active Blood-Glucose Sensor (DEXCOM G7 SENSOR) [facility] DeviceIndications: Type 2 diabetes mellitus with hyperglycemia, without long-term current use of insulin ([facility]),ASCVD (arteriosclerotic cardiovascular disease),Hypertens ion associated with type 2 diabetes mellitus ([facility]),Hyperlipidem ia associated with type 2 diabetes mellitus ([facility]),Class 2 severe obesity due to excess calories with serious comorbidity and body mass index (BMI) of 38.0 to 38.9 in adult ([facility]) 1 Each by [facility].(Non-Drug; Combo Route) route every 10 days. 3 Each 3 07/28/19 23 Active Additional Information Patient not taking.Reported on 07/08/2024 clopidogreL (PLAVIX) 75 mg Oral Tablet Take 75 mg by mouth daily. Active nitroGLYCERIN (NITROSTAT) 0.4 mg SL Tablet, Sublingual 0.4 mg. 09/17/19 24 Active SYNJARDY XR 12.5-1,000 mg Oral tablet, IR & ER, biphasic 24hr Take 2 Tablets by mouth daily. 04/23/19 25 Active tirzepatide (MOUNJARO) 7.5 mg/0.5 mL SubQ Pen InjectorIndication s:Type 2 diabetes mellitus with hyperglycemia, without long-term current use of insulin ([facility]) Subcutaneous (Inject under the skin) 7.5 mg once a week. 2 mL 5 08/22/19 25 Active Active Problems Problem Noted Date Diagnosed Date Type 2 diabetes mellitus wit h hyperglycemia, without long-term current use of insulin 07/27/2022 ASCVD (arteriosclerotic cardiovascular disease) 07/27/2022 Hypertension associated with type 2 diabetes wicho litus 07/27/2022 Hyperlipidemia associated with type 2 diabetes m ellitus 07/27/2022 Class 2 severe obesity due t o excess calories with serious comorbidity and body mass index (BMI) of 38.0 to 38.9 in adult 07/27/2022 Encounters Date Type Department Care Team Description 08/19/2024 Telephone [facility] [place] [address] [address] Ron Celaya MD Results 07/14/2024 Telephone [facility] [address] [facility] [address] [place] [address] Rno Celaya MD Medication Refill 07/08/2024 3:15 PM EDT Office Visit [facility] [address] [facility] [address] [place] [address] Ron Celaya MD Type 2 diabetes mellitus with hyperglycemia, without long-term current use of insulin (HCC) (Primary Dx); Hyperlipidemia associated with type 2 diabetes mellitus (HCC); ASCVD (arteriosclerotic cardiovascular disease); Hypertension associated with type 2 diabetes mellitus (HCC); Class 2 severe obesity due to excess calories with serious comorbidity and body mass index (BMI) of 38.0 to 38.9 in adult (HCC) from Last 3 Months Immunizations Immunization Administration Dates Next Due Tdap 12/09/2022 Surgical History Surgery Date Site/Laterality Comments CARDIAC SURGERY 01/14/2024 - 02/13/2024 4 stents Medical History Medical History Date Comments Diabetes (HCC) Heart attack (HCC) High blood pressure Sleep apnea Social History Tobacco Use Types Packs/Day Years Used Date Smoking Tobacco: Never Smokeless Tobacco: Never Tobacco Cessation:Counseling Given: Not Answered Alcohol Use Standard Drinks/Week Comments Not Currently 0 (1 standard drink = 0.6 oz pur e alcohol) Sex and Gender Information Value Date Recorded Sex Assigned at Not on file Legal Sex Male 2:34 PM EST Gender Identity Not on file Sexual Orientation Not on file Obstetrics History Last Filed Vital Signs Vital Sign Reading Time Taken Comments Blood Pressure 132/84 07/08/2024 3:24 PM EDT Pulse 94 07/08/2024 3:24 PM EDT Temperature - - Respiratory Rate 18 07/08/2024 3:24 PM EDT Oxygen Saturation - - Inhaled Oxygen Concentration - - Weight 122.8 kg (270 lb 12.8 oz) 07/08/2024 3:24 PM EDT Height 177.8 cm (5' 10 ) 07/08/2024 3:24 PM EDT Body Mass Index 38.86 07/08/2024 3:24 PM EDT Plan of Treatment Upcoming Encounters Date Type Department Care Team (Late st Contact Info) Description 10/12/2024 3:15 PM EDT [facility] [place] [address] [facility] [address] [place] [address] Ron Celaya MD [address] [place] [address] Health Maintenance Due Date Last Done Comments Annual Wellness Exam 10/20/1971 Diabetic Eye Exam 1986 Hepatitis B Vaccine (1 of 3 - 19+ 3-dose series) 10/20/1987 Pneumococcal Vaccine 50+ (1 of 2 - PCV) 10/20/1987 Cologuard 2013 Colon Cancer Screening 2013 Colonoscopy 2013 FIT 2013 Sigmoidoscopy 2013 Virtual Colonography 2013 Zoster (1 of 2) 2018 COVID-19 Vaccine ( - 2023-2 5 season) 2023 Influenza Vaccine (Season Ended) 2024 Hemoglobin A1c 01/08/2025 07/08/2024, 02/12/2024, 07/27/2022 Lipids 02/11/2025 02/12/2024 Microalbuminuria 02/11/2025 02/12/2024 DTaP/TDaP/Td (2 - Td or Tdap) 12/09/2032 12/09/2022 Meningococcal B Vaccine Aged Out No l onger eligible based on patient's age to complete this topic Procedures Procedure Name Priority Date/Time Associated Diagnosis Comments POCT GLYCATED HEMOGLOBIN, TOTAL Routine 07/08/2024 3:33 PM EDT Type 2 diabetes mellitus with hyperglycemia, without long-term current use of insulin (HCC) LIPID PANEL REFLEX Routine 02/12/2024 MICROALBUMIN/CREATI NINE RATIO URINE Routine 02/12/2024 from Last 3 Months or Most Recently Relevant to Health Maintenance Results * (ABNORMAL) POCT GLYCATED HEMOGLOBIN, TOTAL (07/08/2024 3:33 PM EDT) Hemoglobin A1C 8.2(A) 4 - 6 % SEP OFFICE Lot Number SEP OFFICE Expiration Date SEP OFFICE SeriAl # SEP OFFICE 07/08/2024 3:33 PM EDT Ron Celaya MD POINT OF CARE TEST ORDERABLES Final Result Performing Organization Address City/[facility] Co de Phone Number SEP OFFICE * LIPID PANEL REFLEX (02/12/2024) Cholesterol 136 0 - 200 MG/DL SEP OFFICE Comment:140-200 Triglycerides 287 MG/DL SEP OFFICE Comment:30-150 VLDL Cholesterol Kennedy 57 SEP OFFICE Comment:0-40 HDL Cholesterol 35 MG/DL SEP OFFICE Comment:40-60 Chol/HDL Ratio 3.9 SEP OFFICE Comment:1-3.5 LDL Cholesterol, Calc NMR 59.03 SEP OFFICE Comment:100-129 Blood VENOUS BLOOD / Unknown 02/12/2024 Ron Celaya MD CHEMISTRY ORDERABLES Edited R esult - Final Performing Organization Address [facility] Co de Phone Number SEP OFFICE * MICROALBUMIN/CREATININE RATIO URINE (02/12/2024) Creatinine Urine 64 SEP OFFICE Microalb, Ur 10.200 <=31 MG/L SEP OFFICE Comment:0-16.7 Urine Microalb/Creat Ratio 15.9 MCG/MG CREAT. SEP OFFICE Comment:0-29 Urine URINE SPECIMEN COLLECTION / Unknown 02/12/2024 Ron Celaya MD URINE ORDERABLES Final Result Performing Organization Address City/[facility] Co de Phone Number SEP OFFICE from Last 3 Months or Most Recently Relevant to Health Maintenance Insurance [facility] CHO[facility] PLUS [id number] [facility] CHOICE PLUS [id number] Care Teams Agent Producer Relationship Specialty Start Date End Date Gerber Dave MD [address] [facility] [id number] PCP - General Internal Medicine-Cardiovascular Disease 05/31/22
--- OUTSIDE RECORDS SUMMARY | 2024-09-27 09:15 | XMS_ITS | Clinical Summary ---
Author Organization [facility] Address [address] [place] [address] Care Team Providers Care Senior Lead Project Manager Name Role Phone Unavailable Primary Care Provider Unavailabl e Social History Tobacco Use Types Packs/Day Years Used Date Smoking Tobacco: Never Assessed Sex and Gender Information Value Date Recorded Sex Assigned at Not on file Legal Sex Male 10:41 AM EDT Gender Identity Not on file Sexual Orientation Not on file Plan of Treatment Health Maintenance Due Date Last Done Comments [facility]-Depression Screening 1970 [facility]-Infant/Child/Adol SDOH Screenings 1970 [facility]- SDOH Screenings 1986 [facility]-Adult SDOH Screenings 1986 [facility]-DTaP,Tdap,and Td Vaccine s (1 - Tdap) 10/20/1987 [facility]-Hepatitis B Vaccines (1 of 3 - 19+ 3-dose series) 10/20/1987 CT Colonography 2013 Colonoscopy 2013 FIT-DNA 2013 FIT 2013 FOBT 2013 Sigmoidoscopy 2013 [facility]-Colorectal Cancer Screening 2013 [facility]-Pneumococcal Vaccine: 50 + Years (1 of 1 - PCV) 2018 [facility]-Zoster Vaccines (1 of 2) 2018 [id number] Vaccine (1 - 20 24-25 season) 2023 [facility]-Influenza Vaccine (Seas[place] n Ended) 2024 HPV Vaccines Aged Out No longer eligi ble based on patient's age to complete this topic [facility]-HIB Vaccines Aged Out No longer e ligible based on patient's age to complete this topic [facility]-Hepatitis A Vaccines Aged Out No longer eligible based on patient's age to complete this topic [facility]-IPV Vaccines Aged Out No longer e ligible based on patient's age to complete this topic [facility]-Rotavirus Vaccines Aged Out No lo nger eligible based on patient's age to complete this topic Insurance [facility]
--- OUTSIDE RECORDS SUMMARY | 2024-09-27 09:15 | XMS_ITS | Encounter Summary ---
Author Organization [facility] [place] [address] Care Team Providers Care Chief Deputy Clerk/Bailiff Name Role Phone Gerber Dave MD Primary Care Provider +1- [phone] Reason for Visit * Reason Onset Date Comments Medication Refill 07/14/2024 Encounter Details Date Type Department Care Team (Late st Contact Info) Description 07/14/[address] [facility] [address] [id number] Ron Celaya MD [address] [place] [address] Medication Refill Social History Tobacco Use Types Packs/Day Years Used Date Smoking Tobacco: Never Smokeless Tobacco: Never Alcohol Use Standard Drinks/Week Comments Not Currently 0 (1 standard drink = 0.6 oz pur e alcohol) Sex and Gender Information Value Date Recorded Sex Assigned at Not on file Legal Sex Male 2:34 PM EST Gender Identity Not on file Sexual Orientation Not on file documented as of this encounter Ordered Prescriptions Prescription Sig Dispense Quantity Refills Last Filled Start Date End Date tirzepatide (MOUNJARO) 7.5 mg/0.5 mL SubQ Pen InjectorIndicatio ns:Type 2 diabetes mellitus with hyperglycemia, without long-term current use of insulin (HCC) Subcutaneous (Inject under the skin) 7.5 mg once a week. 2 mL 5 08/21/2024 documented in this encounter Miscellaneous Notes * Addendum Note - Angelita Randle RMA - 08/21/2024 6:38 AM EDT Addended by: ANGELTIA RANDLE on: 08/21/2024 06:38 AM Modules accepted: Orders * Telephone Encounter - Angelita Radnle RMA - 08/21/2024 6:38 AM EDT Script sent * Telephone Encounter - Mc Lyon - 08/20/2024 1:02 PM EDT Pharmacy calling and needing the mounjaro script sent to different pharmacy please nvunjaro [facility] [place] [phone] - [address] [address] [address] [facility] [address] - [phone] [[id number]] * Telephone Encounter - Samantha Becerra RMA - 08/17/2024 11:41 AM EDT PA for Mounjaro 7.5 mg Pen was received and completed through [facility] environment. Medication was approved from 07/14/24 until 07/14/25. I called and made [facility] aware that patient is only taking the Mounjaro. * Telephone Encounter - Mc Lyon - 07/14/2024 12:38 PM EDT [facility] calling in regard to the PA for the mounajro wanting to know if it was the mounajor was goingto be used exclusively and not the opempic. would like a call back at [phone] documented in this encounter Plan of Treatment Upcoming Encounters Date Type Department Care Team (Late st Contact Info) Description 10/12/2024 3:15 PM EDT Office Visit [facility] [place] [address] [facility] [address] [place] [address] Ron Celaya MD [address] [place] [address] documented as of this encounter Visit Diagnoses Diagnosis Type 2 diabetes mellitus with hyperglycemia, without long-term current use of insulin (HCC) documented in this encounter Discontinued Medications Medication Sig Discontinue Reason Start Date End Da te tirzepatide (MOUNJARO) 7.5 mg/0.5 mL SubQ Pen InjectorIndications:T ype 2 diabetes mellitus with hyperglycemia, without long-term current use of insulin (HCC) Subcutaneous (Inject under the skin) 7.5 mg once a week. Reorder 07/08/2024 08/21/2024 documented as of this encounter Care Teams Chief Deputy Clerk/Bailiff Relationship Specialty Start Date End Date Gerber Dave MD [address] [facility] [address] [phone] PCP - General Internal Medicine-Cardiovascular Disease 05/31/22 documented as of this encounter
--- OUTSIDE RECORDS SUMMARY | 2024-09-27 09:15 | XMS_ITS | Encounter Summary ---
Author Organization [place] [address] Care Team Providers Care Assessment Technician Name Role Phone Gerber Dave MD Primary Care Provider [phone] Reason for Visit * Reason Onset Date Comments Results 08/19/2024 Encounter Details Date Type Department Care Team (Late st Contact Info) Description 08/19/2024 Telephone SEP [address] [address] Ron Celaya MD [address] [place] [address] Results Social History Tobacco Use Types Packs/Day Years [...] on file documented as of this encounter Miscellaneous Notes * Telephone Encounter - Silke Schmitz RN - 08/19/2024 9:13 AM EDT TC with Radha from [facility]. Most recent lab results faxed to [facility] at [phone]. documented in this encounter Plan of Treatment Upcoming Encounters Date Type Department Care Team (Late st Contact Info) Description 10/12/2024 3:15 PM EDT Office Visit [facility] [address] [place] [address] Ron Celaya MD [address] [place] [address] documented as of this encounter Visit Diagnoses Not on filedocumented in this encounter Care Teams Assessment Technician Relationship Specialty Start Date End Date Gerber Dave MD [address] [place] [facility] [address] [place] [address] PCP - General Internal Medicine-Cardiovascular Disease 05/31/22 documented as of this encounter
--- NOTE | 2024-09-27 09:25 | CT_ITS ---
PROCEDURE INFORMATION: Exam: CT Maxillofacial With Contrast Exam date and time: 09/27/2024 10:11 AM Age: 53 years old Clinical indication: Other: Patient was bite by a bug on the left frontal religious; Additional info: Post septal cellulitis TECHNIQUE: Imaging protocol: Computed tomography of the face with contrast. Radiation optimization: All CT scans at this facility use at least one of these dose optimization techniques: automated exposure control; mA and/or kV adjustment per patient size (includes targeted exams where dose is matched to clinical indication); or iterative reconstruction. Contrast material: ISOVUE; Contrast volume: 75 ml; Contrast route: IV; COMPARISON: CT HEAD/BRAIN WO CON 09/27/2024 9:41 AM FINDINGS: Paranasal sinuses: Scattered mucosal thickening throughout the paranasal sinuses. Orbital cavities: Globes are symmetric. Orbital rims/wasserman are intact. Intraconal fat appear unremarkable. Lacrimal glands are unremarkable. Bones: Sequela of prior nasal spine fracture.No acute fracture of the maxillofacial region. Soft tissues: There is redemonstration of preseptal edema soft tissues swelling of the medial at the level of the nasolacrimal sac. IMPRESSION: 1. Left orbital preseptal cellulitis. No discrete abscess. Inflammation extends into medial canthus reflecting an element of dacryocystitis 2. Sequela of prior nasal spine fracture.No acute fracture of the maxillofacial region.
--- NOTE | 2024-09-27 09:25 | CT_ITS ---
PROCEDURE INFORMATION: Exam: CT Head Without Contrast Exam date and time: 09/27/2024 9:41 AM Age: 53 years old Clinical indication: Other: Pre vs post septal cellulitis TECHNIQUE: Imaging protocol: Computed tomography of the head without contrast. Radiation optimization: All CT scans at this facility use at least one of these dose optimization techniques: automated exposure control; mA and/or kV adjustment per patient size (includes targeted exams where dose is matched to clinical indication); or iterative reconstruction. COMPARISON: CR [id number] XR cervical spine 5V 07/04/2018 5:25 PM FINDINGS: Brain: No evidence of acute parenchymal hemorrhage, extra-axial collection or local regional mass effect. Cerebral ventricles: The ventricles, sulci and cisterns are normal in size and configuration. No hydrocephalus or midline structure shift Pituitary gland and sella: Sellar/parasellar structures, orbits and craniocervical junction are unremarkable Paranasal sinuses: Visualized sinuses are unremarkable. No fluid levels. Mastoid air cells: Visualized mastoid air cells are well aerated. Orbital cavities: There is no exophthalmos. Orbits are otherwise unremarkable (see below). Bones: No calvarial fracture Soft tissues: Moderate left preseptal cellulitis. No discrete collection. Mild stranding along the left lacrimal sac could represent an element of dacryocystitis. IMPRESSION: Moderate left preseptal cellulitis. No discrete collection. Mild stranding along the left lacrimal sac could represent an element of dacryocystitis.
--- NOTE | 2024-09-27 09:36 | PC.NURSE ---
PT to RAD @ this time
[2024-09-27 09:44] LABS: Basophils % 0.4 % (0.1-2.0); Eosinophils % 0.6 % (0.1-12.0); Hematocrit 45.9 % (42.0-52.0); Hemoglobin 15.1 g/dL (14.1-18.0); Immature Granulocytes # 0.05 10^3uL; Immature Granulocytes % 0.9 %; Lymphocytes # 0.8 K/mm3 (0.7-4.5); Lymphocytes % 14.6 % (10-50); Mean Corpuscular HGB Conc 32.9 g/dL (31.8-35.4); Mean Corpuscular Hemoglobin 28.1 pg (27.0-31.2); Mean Corpuscular Volume 85.3 fl (80-94); Mean Platelet Volume 10.5 fl (7.4-10.4); Monocytes # 0.7 K/mm3 (0.1-1.0); Monocytes % 13.7 % (1.7-9.3); Neutrophils # 3.8 K/mm3 (1.8-7.8); Neutrophils % 69.8 % (37.0-80.0); Nucleated Red Blood Cells # 0 10^3/uL; Nucleated Red Blood Cells % 0 %; Platelet Count 182 K/mm3 (142-424); Red Blood Count 5.38 M/mm3 (4.60-6.20); Red Cell Distribution Width 14.5 % (11.5-17.5); Red Cell Distribution Width-SD 44.5 fL; White Blood Count 5.4 K/mm3 (4.8-10.8)
--- NOTE | 2024-09-27 09:44 | PC.NURSE ---
pt back to room from [facility]
[2024-09-27] MEDS: VANCOMYCIN HCL 2,250 MG in 0.9 % SODIUM CHLORIDE 250 ML 125 MG IV (09:49)
[2024-09-27] MEDS: PIPERACILLIN/TAZO 4.5 GM in 0.9 % SODIUM CHLORIDE 100 ML IV (09:51)
[2024-09-27 09:58] LABS: Albumin Level 4.6 g/dl (3.5-5.0); Chloride 104 mmol/L (98-107)
[2024-09-27 09:59] LABS: Potassium 4.2 mmoL/L (3.5-5.1); Sodium 138 mmol/L (136-145)
[2024-09-27 10:01] LABS: Blood Urea Nitrogen 21 mg/dl (9-20); Creatinine Clearance Estimated 107 mL/min (50-200); Estimated Glomerular Filt Rate 57 ml/min (>60); GFR (African American) 69 ML/MIN (>60)
[2024-09-27 10:02] LABS: Alanine Aminotransferase 59 U/L (12-78); Albumin/Globulin Ratio 1.5 (1.1-1.8); Alkaline Phosphatase 110 U/L (38-126); Anion Gap 11.2 mEq/L (5-15); Aspartate Amino Transferase 52 U/L (17-59); Bilirubin,Total 0.9 mg/dl (0.2-1.3); Calcium 9.4 mg/dl (8.4-10.2); Carbon Dioxide 27 mmol/L (22.0-30.0); Glucose 143 mg/dl (74-100); Total Protein,Serum 7.6 g/dl (6.3-8.2)
[2024-09-27 10:07] LABS: C-Reactive Protein 30.2 mg/L (0-4)
[2024-09-27] MEDS: IOPAMIDOL-370 (76%);100ML BOTTLE 75 ML IV (10:13)
[2024-09-27] MEDS: SODIUM CHLORIDE 0.9% 10ML SYR (RAD ONLY) 10 ML IV (10:13)
[2024-09-27 10:18] LABS: Erythrocyte Sedimentation Rate 4 mm/hr (0-20)
--- NOTE | 2024-09-27 10:25 | HMH.EDGENADL ---
Discharge Plan Disposition Patient Disposition: Home, Self-Care Condition: Good Prescriptions Prescriptions: New cefdinir 300 mg capsule 300 mg PO BID 5 Days Qty: 10 0RF No Action sulfamethoxazole-trimethoprim 800-160 mg tablet 1 tab PO BID mupirocin calcium 2 % cream 1 applic topical BID fenofibrate 160 mg tablet 160 mg PO DAILY Patient Comments: TAKE ONE TABLET BY MOUTH EVERY DAY clopidogrel [Plavix] 75 mg tablet 75 mg PO DAILY Qty: 90 3RF carvedilol 6.25 mg tablet 6.25 mg PO BID Qty: 180 3RF aspirin 81 mg Tablet,Chewable 81 mg PO DAILY Qty: 0 0RF indomethacin 25 mg capsule 25 mg PO TID Synjardy 12.5-1,000 mg tablet 2 tab PO DAILY Mounjaro 7.5 mg/0.5 mL pen injector 7.5 mg SQ WEEKLY Patient Comments: INJECT THE CONTENTS OF 1 PEN (7.5 MG / 0.5ML) SUBCUTANEOUSLY ONCE A WEEK atorvastatin 80 mg tablet 80 mg PO HS lisinopril 20 mg tablet 20 mg PO HS lisinopril-hydrochlorothiazide 20-25 mg tablet 1 tab PO DAILY Referrals Follow up/Referrals: Nas Huitron MD [Primary Care Provider, Medical] - See instructions Activity Restrictions/Add. Instructions Additional Instructions/Restrictions: An additional antibiotic was sent to the [facility] pharmacy. Start taking this antibiotic tonight with your Bactrim. Please contact your Primary Doctor's office tomorrow morning and inform them of your visit. It is my recommendation that they see you in clinic tomorrow to ensure no worsening symptoms. If you develop fevers, chills, vision changes or cannot tolerate the swelling please come back for re-evaluation. Clinical Impressions Clinical Impression: Periorbital cellulitis of left eye Instructions Patient Instructions: Cellulitis Print Language Print Language: Syriac Discharge ED Provider: Angeles Burgos Adult HPI General Chief complaint: Eye Problems Stated complaint: swelling to left eye/side of face from bug bite Time Seen by Provider: 09/27/24 09:13 Mode of Arrival: Ambulatory Source of Information: Patient Description of Symptoms (Recalled from ER Triage Doc. by RN): Pt reports on 09/21/2024 [address] was [address] when he noticed a bug flying around his head. Pt thinks he may have been bitten but unsure. Pt states he now has swelling around left eye and spot to his head. Pt denies any pain or vision problems at this time. Pt has been seen by PCP and given meds without relief. History of Present Illness HPI narrative: Tang Corrigan is a 53 y/o male presenting with facial swelling. Pt reports possibly getting stung or bit by an insect last Saturday. He began experiencing swelling over the left side of his head and around his left eye. He went to his PCP where he was prescribed Bactrim and Mupirocin. He states he has taken 4 doses of the antibiotic and continues to have significant swelling. He denies pain, fevers, chills, nausea, vomiting. States he went to an urgent care this morning who was concerned about the swelling and sent him to the ER. Pt reports history of hypertension and diabetes. Related Data Home Medications ?Medication ?Instructions ?Recorded ?Confirmed indomethacin 25 mg capsule 25 mg PO TID 02/15/22 09/27/24 fenofibrate 160 mg tablet 160 mg PO DAILY 02/12/24 09/27/24 atorvastatin 80 mg tablet 80 mg PO HS 09/27/24 09/27/24 empagliflozin 12.5 mg-metformin 2 tab PO DAILY 09/27/24 09/27/24 1,000 mg tablet (Synjardy) lisinopril 20 mg tablet 20 mg PO HS 09/27/24 09/27/24 lisinopril 20 1 tab PO DAILY 09/27/24 09/27/24 mg-hydrochlorothiazide 25 mg tablet mupirocin calcium 2 % topical cream 1 applic topical BID 09/27/24 09/27/24 sulfamethoxazole 800 1 tab PO BID 09/27/24 09/27/24 mg-trimethoprim 160 mg tablet tirzepatide 7.5 mg/0.5 mL 7.5 mg SQ WEEKLY 09/27/24 09/27/24 subcutaneous pen injector (Ranjith) Previous Rx's ?Medication ?Instructions ?Recorded aspirin 81 mg chewable tablet 81 mg PO DAILY #0 tabs 12/06/21 clopidogrel 75 mg tablet (Plavix) 75 mg PO DAILY #90 tabs 10/05/22 carvedilol 6.25 mg tablet 6.25 mg PO BID #180 tabs 08/24/24 cefdinir 300 mg capsule 300 mg PO BID 5 days #10 caps 09/27/24 Allergies Allergy/AdvReac Type Severity Reaction Status Date / Time Penicillins Allergy unkno Verified 09/27/24 08:38 isosorbide AdvReac Headache Verified 09/27/24 08:[address] [facility] Disclaimer: The information contained in this section may have been updated after the patient was seen, as this information can be updated by other users. Medical History Diaphoresis Fatigue LV dysfunction Typical angina Angina pectoris Hyperlipidemia Coronary artery disease Type 2 diabetes mellitus Abnormal EKG Hypertension STEMI (ST elevation myocardial infarction) Exposure to COVID-19 virus Obstructive Sleep Apnea-Hypopnea Syndrome Surgical History Status post coronary artery stent placement Family History Other No significant family history Social History Smoking Status: Former smoker tobacco type: cigarettes packs per day: 1 alcohol intake: never substance use type: denies use current occupational status: employed Travel in the last 8 weeks?: Inside the [facility] housing: house caffeine: Yes Have you lived/traveled outside US in past 30 days?: No Contact w/someone who lives/traveled outside US past 30 days?: No Exposure to someone with infectious disease in past 14 days?: No Do you have a fever (greater than 100.4 F or 38 C)?: No Have you tested positive for COVID-19?: No Exposed to someone with COVID-19 in past 14 days?: No Do you have a sore throat?: No Do you have a cough?: No Do you have any weakness?: No Do you have any diarrhea?: No Are you experiencing any unusual bleeding?: No Do you have any muscle aches/pain?: No Do you have any abdominal pain?: No Are you experiencing loss of taste or smell?: No Other Medical History Have you received the Flu Vaccine for this season: No Have you received the Pneumonia Vaccine: No ROS Obtained: Yes All systems reviewed & no additional complaints except as documented Physical Exam General General appearance: alert and in no apparent distress Head Head exam: atraumatic and other (left parietal scab/wound. No fluctuance or active drainage.) Eye Eye exam: Present PERRL, EOMI and periorbital swelling (left); Absent scleral icterus, conjunctival redness, discharge or periorbital tenderness Neck Neck exam: Present full ROM Chest Chest inspection: Present normal inspection Respiratory Respiratory exam: Present normal lung sounds bilaterally Cardiovascular Cardiovascular exam: Present regular rate and normal rhythm Abdominal Exam Abdominal exam: Present soft; Absent distention or tenderness exam: Present deferred Extremities Exam Extremities exam: Present full ROM; Absent tenderness or edema Back Exam Back exam: Present full ROM Neurological Exam Neurological exam: Present alert and oriented X3 Psychiatric Psychiatric exam: Present normal mood Skin Skin exam: Present warm and dry Medical Decision Making Medical Records Medical records reviewed: Yes I reviewed the patient's medical records. Screening: Per USPSTF and CDC recommendations, given the prevalence of disease in our region, it is our hospital?s policy to screen for HIV and viral Hepatitis for all patients aged 18 and over and those with ongoing risk factors. [place] Inquiry Pt receiving controlled substance: No Vital Signs: 09/27/24 09:12 09/27/24 09:30 09/27/24 10:01 Temperature 98.7 F Temperature Source Oral Pulse Rate 85 79 Pulse Rate [Left] 82 Respiratory Rate 16 18 18 Blood Pressure 115/82 108/53 L Blood Pressure [Right Arm] 152/98 H Blood Pressure Mean 93 79 Blood Pressure Mean [Right Arm] 116 Blood Pressure Source Blood Pressure Source [Right Arm] Automatic Cuff Blood Pressure Position 02 Sat by Pulse Oximetry 96 98 97 Oxygen Delivery Method Room Air 09/27/24 10:30 09/27/24 11:00 09/27/24 11:30 Temperature Temperature Source Pulse Rate 82 80 79 Pulse Rate [Left] Respiratory Rate 18 18 Blood Pressure 120/69 119/77 116/78 Blood Pressure [Right Arm] Blood Pressure Mean 86 85 Blood Pressure Mean [Right Arm] Blood Pressure Source Blood Pressure Source [Right Arm] Blood Pressure Position 02 Sat by Pulse Oximetry 97 97 95 Oxygen Delivery Method 09/27/24 12:00 09/27/24 12:03 Temperature 98.7 F Temperature Source Oral Pulse Rate 79 67 Pulse Rate [Left] Respiratory Rate 18 Blood Pressure 116/69 116/69 Blood Pressure [Right Arm] Blood Pressure Mean Blood Pressure Mean [Right Arm] Blood Pressure Source Automatic Cuff Blood Pressure Source [Right Arm] Blood Pressure Position Supine 02 Sat by Pulse Oximetry 97 Oxygen Delivery Method Room Air Room Air Lab Data Lab results reviewed: Yes I reviewed the patient's lab results. Lab Results 09/27/24 09:10: WBC 5.4, RBC 5.38, Hgb 15.1, Hct 45.9, MCV 85.3, MCH 28.1, MCHC 32.9, RDW 14.5, Plt Count 182, MPV 10.5 H, Neut % (Auto) 69.8, Lymph % (Auto) 14.6, Woodruff % (Auto) 13.7 H, Eos % (Auto) 0.6, Baso % (Auto) 0.4, Neut # (Auto) 3.8, Lymph # (Auto) 0.8, Woodruff # (Auto) 0.7, Eos # (Auto) 0.0, Baso # (Auto) 0.0, ESR 4, Sodium 138, Potassium 4.2, Chloride 104, Carbon Dioxide 27, Anion Gap 11.2, BUN 21 H, Creatinine 1.30 H, Estimated Creat Clear 107, Estimated GFR 57 L, Est GFR ( Amer) 69, Glucose 143 H, Calcium 9.4, Total Bilirubin 0.9, AST 52, ALT 59, Alkaline Phosphatase 110, C-Reactive Protein 30.2 H, Total Protein 7.6, Albumin 4.6, Globulin 3.0, Albumin/Globulin Ratio 1.5, HCV Ab EMRE w/Rflx PCR Qn Negative, HIV Ag/Ab Combo Qual Negative 09/27/24 09:10 09/27/24 09:10 Orders (Tests/Meds): ED MEDICATIONS Discontinued Medications Generic Name Dose Route Start Last Admin Trade Name Juventino PRN Reason Stop Dose Admin Piperacillin Sod/Tazobactam 100 mls @ 200 mls/hr 09/27/24 09:26 09/27/24 09:51 Sod 4.5 gm/ Sodium Chloride IV 09/27/24 09:55 200 mls/hr ONCE ONE Administration Vancomycin HCl 2,000 mg/ 250 mls @ 125 mls/hr 09/27/24 09:30 09/27/24 09:44 Sodium Chloride IV 10/07/24 09:29 Not Given Q24H SHRUIT Vancomycin HCl 2,250 mg/ 250 mls @ 125 mls/hr 09/27/24 09:45 09/27/24 09:49 Sodium Chloride IV 09/27/24 11:44 125 mls/hr ONCE ONE Administration Iopamidol 75 ml 09/27/24 10:11 09/27/24 10:13 Iopamidol-370 (76%);100ml Bottle IV 09/27/24 10:12 75 ml ONCE ONE Administration Sodium Chloride 10 ml 09/27/24 10:11 09/27/24 10:13 Sodium Chloride 0.9% 10ml Syr (Rad Only) IV 10/27/24 10:10 10 ml NEEDED PRN Administration Maintain IV Site ORDERS Category Date Time Status CT facial bones w con Stat Cat Scan 09/27/24 09:[address] head/brain wo con Stat Cat Scan 09/27/24 09:25 Completed CBC w/Auto Diff [Complete Blood Count Auto Diff] Stat Lab 09/27/24 09:10 Completed CMP [Comprehensive Metabolic Panel] Stat Lab 09/27/24 09:10 Completed CRP [C-Reactive Protein] Stat Lab 09/27/24 09:10 Completed ESR [Erythrocyte Sedimentation Rate] Stat Lab 09/27/24 09:10 Completed HIV Combo Stat Lab 09/27/24 09:10 Completed Hepatitis C Ab Qual. W/ RFX Stat Lab 09/27/24 09:10 Completed Blood Culture Stat Micro 09/27/24 09:40 Received Medical Decision Narrative: In summary, this is a 53 y/o male presenting with facial swelling. Differential diagnosis includes but not limited to, preseptal cellulitis, postseptal cellulitis, abscess, osteomyelitis, intracranial infection, sepsis, among others. Pt has been on oral Bactrim for two days. He did report slightly improved swelling between yesterday morning and today. Patient has a medical history consistent with hypertension and diabetes for which she takes medications. Patient denies fevers or chills, neck pain, headache, or other systemic symptoms. Patient will be evaluated with CBC, CMP, CRP, ESR, CT head, CT face with IV contrast. Patient treated with IV Zosyn and vancomycin. Labs demonstrated no leukocytosis, anemia, thrombocytopenia. Pt CMP with increased creatinine from prior. CRP elevated at 30.2, ESR normal. CT face was reviewed by me and negative for discreet abscess or evidence of post-septal involvement. No acute findings visualized by me on CT head. Please see final radiology reads for full detail. I discussed findings with the on-call internal medicine physician who did not feel patient had failed outpatient therapy and that an additional antibiotic for beta-lactam coverage could be added and if the patient would follow-up in clinic tomorrow, could safely be discharge home. I discussed with the patient and he was agreeable to this plan. Due to the patient's penicillin allergy, I elected to prescribe cefdinir. Patient tolerated the IV zosyn without reaction and cross-reactivity levels are unlikely. Return precautions and follow-up recommendations given. Patient discharged in stable condition. Angeles Burgos MD, Critical Care Critical Care Time Critical Care Time: No
[2024-09-27 10:45] LABS: HIV Combo NEGATIVE (Negative)
[2024-09-27 10:53] LABS: Hepatitis C Ab Qual. W/ RFX NEGATIVE (Negative)
--- NOTE | 2024-09-27 11:13 | PC.NURSE ---
paged Dr Barnhart (correctional supervising cook for Dr Huitron)
--- NOTE | 2024-09-27 11:27 | PC.NURSE ---
Dr Barnhart returned page, Dr Burgos s/w him now.
--- NOTE | 2024-09-27 11:31 | HMH.PHAINT1 ---
Pharmacy Intervention Comments: MEDICATION RECONCILIATION COMPLETED ON PATIENT USING EXTERNAL FILL HISTORY FROM PHARMACY. -BHUMIKA HAYES, LINND
== END 2024-09-27 12:09 | disposition home or self-care (01) ==
PROVIDERS: Emergency Provider Student in an Organized Health Care Education/Training Program; PCP Family Medicine
DX: L03.213 Periorbital cellulitis (principal); W57.XXXA Bitten or stung by nonvenomous insect and other nonvenomous arthropods, initial encounter; Z87.891 Personal history of nicotine dependence
CPT/HCPCS: 70450; 70487; 80053; 80074; 85025; 85651; 86140; 87040; 87389; 96365; 96366; 96375; 99285; J2543; J3370; J7050; Q9967

== ENCOUNTER 2024-10-20 14:43 | Outpatient (RCR) | payer OTHER, SELFPAY ==
--- NOTE | 2024-10-20 16:17 | HMH.PTOPWND ---
Rehab Outpt Wound Evaluation Rehab OP Wound Evaluation Start: 10/20/24 16:00 Freq: Status: Active Protocol: Document 10/20/24 16:01 POLLY (Rec: 10/20/24 16:17 PHORKARIE [id number]) E-signed By Sky Balbuena, PT Subjective/History History History This is the initial PT wound care eval for Tang Corrigan, 54 yowm who presents with c/o L side forehead wound x ~ 5 wks. He reports insidious onset that may have been an insect or spider bite, but he is unsure. I felt something walking across the parking lot, but it didn't hurt and I didn't think anything of it. But that place got worse over the next few days until the left side of my face swelled up. He reports a scab has been present for several weeks and he has been using medi-honey gel on his PCP's advice. He reports PMH of DM, CAD with 12 stents. Subjective Subjective Currently he reports no pain, and only mild TTP 1/4 noted in the destiny-wound skin. Scab remains in place at this time and was removed via sharp excisional debridement of devitalized tissue. Wound Eval Wound Left Lateral Frontal Wound Type unknown etiology Is This a Chronic Yes Wound Wound Length (cm) 2.6 Wound Width (cm) 1.7 Wound Depth (cm) 0.1 Wound Bed Appearance Beefy Red Percentage 99 Granulated (%) Wound Margins Well Defined Description Surrounding Tissue Sanger Appearance Drainage Description Serosanguineous Drainage Amount Small Wound Topical Saline Irrigant Solution/Irrigant Primary Dressing Composite Comment therahoney gel Wound Debridement Sharps,Forceps,Gauze,Mechanical Method Wound Debridement Moderate Amount of Tissue Removed Wound Debridement Healthy Tissue Revealed Result Dressing Change Tolerated Well Patient Tolerance Suarez-Rueda Wound Assessment Tool Assessment Wound size 2=Length x Width 4--<16 sq cm Wound depth 2=Partial thickness skin loss involving epidermis &/or dermis Wound edges 3=Well-defined, not attached to wound base Wound undermining 1=None present Necrotic tissue type 4=Adherent, soft, black eschar Necrotic tissue 3=25% to 50% of wound covered amount Exudate type 3=Serosanguineous: thin, watery, pale red/pink Exudate amount 3=Small Skin color 1=Sanger or normal for ethnic group surrounding wound Peripheral tissue 1=No swelling or edema edema Peripheral tissue 1=None present induration Granulation tissue 3=Bright, beefy red; <75% & > 25% of wound filled Epithelialization 5= < 25% wound covered Wound assessment 32 total score Wound Problems/Impairments Impairments Problems/ Wound Care Needs,Impaired Self Care/Self Management Impairmments Prognosis Rehab Potential Good Comment Skilled therapy is indicated to reduce overall wound surface area and remove devitalized tissue in order to return pt to PLOF. Clinical Impression Consistent with Yes Diagnosis Short Term Goals Number of Weeks 2 Decrease Wound Area Yes: by 25% Residential Goals Number of Weeks 4 Decrease Wound Area Yes: by 75% Outpatient Therapy Plan of Care Treatment Plan May Include Wound Care Yes Frequency Times per week 1 Duration Number of Weeks 4 Addendums This patient is a No candidate for social or vocational rehab ? Patient/Guardian Yes verbally acknowledges understanding of treatment program and consents to further treatment? Patient/Guardian Yes verbally acknowledges understanding of diagnosis, prognosis and goals for treatment? Eval Complexity PT Charges 77095 - Moderate Complexity PHYSICIAN CERTIFICATION: I certify the specified therapy services for Tang Corrigan are required, authorized, and reviewed every 30 days.
== END 2024-10-20 23:59 | disposition home or self-care (01) ==
LOC: PT 14:43
PROVIDERS: PCP Family Medicine; Visit Provider Family Medicine
DX: S01.80XD Unspecified open wound of other part of head, subsequent encounter (principal)
CPT/HCPCS: 97162

== ENCOUNTER 2025-01-06 08:10 | Outpatient (CLI) | payer OTHER, SELFPAY ==
[2025-01-06 09:22] LABS: Anion Gap 16.0 mEq/L (5-15); Blood Urea Nitrogen 20 mg/dl (9-20); Calcium 9.4 mg/dl (8.4-10.2); Carbon Dioxide 20 mmol/L (22.0-30.0); Chloride 105 mmol/L (98-107); Cholesterol 113 mg/dl (140-200); Creatinine,Serum 1.00 mg/dl (0.66-1.25); Estimated Glomerular Filt Rate 77 ml/min (>60); GFR (African American) 94 ML/MIN (>60); Glucose 211 mg/dl (74-100); HDL Cholesterol 26 mg/dl (40-60); Magnesium 1.8 mg/dl (1.6-2.3); Potassium 4.0 mmoL/L (3.5-5.1); Sodium 137 mmol/L (136-145); Triglycerides 396 mg/dl (30-150)
[2025-01-06 09:34] LABS: C-Reactive Protein 2.2 mg/L (0-4)
[2025-01-06 12:08] LABS: Hemoglobin A1C 8.0 % (4.0-6.0)
== END 2025-01-06 23:59 | disposition home or self-care (01) ==
LOC: LAB 08:11
PROVIDERS: PCP Family Medicine; Visit Provider Family Medicine
DX: E78.5 Hyperlipidemia, unspecified (principal); M79.606 Pain in leg, unspecified; I10 Essential (primary) hypertension; E11.65 Type 2 diabetes mellitus with hyperglycemia
CPT/HCPCS: 36415; 80048; 80061; 83036; 83735; 86140

== ENCOUNTER 2025-01-13 07:37 | Day surgery (SDC) | payer OTHER, SELFPAY ==
[2025-01-12 08:46] VITALS: BMI 37.8
--- NOTE | 2025-01-12 17:18 | EXP.HP ---
History of Present Illness *Admission Date: 01/13/25 *Reason for visit:: Positive Cologuard *History of present illness: Mr. Corrigan is a 54-year-old gentleman who is here for screening colonoscopy secondary to a positive Cologuard. This is the patient's first colonoscopy. The examination is deemed medically necessary for screening colonoscopy. The patient has been seen, interviewed and examined prior to the procedure by both myself and the anesthesia provider. [facility] Disclaimer: The information contained in this section may have been updated after the patient was seen, as this information can be updated by other users. Medical History Diaphoresis Fatigue LV dysfunction Typical angina Angina pectoris Hyperlipidemia Coronary artery disease Type 2 diabetes mellitus Abnormal EKG Hypertension STEMI (ST elevation myocardial infarction) Exposure to COVID-19 virus Obstructive Sleep Apnea-Hypopnea Syndrome Surgical History Status post coronary artery stent placement Family History Other No significant family history Social History Smoking Status: Former smoker tobacco type: cigarettes packs per day: 1 alcohol intake: never substance use type: denies use current occupational status: employed Travel in the last 8 weeks?: Inside the [facility] housing: house caffeine: Yes Have you lived/traveled outside US in past 30 days?: No Contact w/someone who lives/traveled outside US past 30 days?: No Exposure to someone with infectious disease in past 14 days?: No Do you have a fever (greater than 100.4 F or 38 C)?: No Have you tested positive for COVID-19?: No Exposed to someone with COVID-19 in past 14 days?: No Do you have a sore throat?: No Do you have a cough?: No Do you have any weakness?: No Do you have any diarrhea?: No Are you experiencing any unusual bleeding?: No Do you have any muscle aches/pain?: No Do you have any abdominal pain?: No Are you experiencing loss of taste or smell?: No Other Medical History Have you received the Flu Vaccine for this season: No Have you received the Pneumonia Vaccine: No Review of Systems Review of Systems Review of systems (narrative): Negative *Cardiovascular Comments: Negative *Gastrointestinal Comments: Negative *Genitourinary Comments: Negative *Musculoskeletal Comments: Negative *Neurologic Comments: Negative Meds Home Medications and Allergies Home Medications ?Medication ?Instructions ?Recorded ?Confirmed ?Type aspirin 81 mg chewable tablet 81 mg PO DAILY #0 tabs 12/06/21 01/13/25 Rx indomethacin 25 mg capsule 25 mg PO TID 02/15/22 01/13/25 History clopidogrel 75 mg tablet (Plavix) 75 mg PO DAILY #90 tabs 10/05/22 01/13/25 Rx fenofibrate 160 mg tablet 160 mg PO DAILY 02/12/24 01/13/25 History carvedilol 6.25 mg tablet 6.25 mg PO BID #180 tabs 08/24/24 01/13/25 Rx empagliflozin 12.5 mg-metformin 2 tab PO DAILY 09/27/24 01/13/25 History 1,000 mg tablet (Synjardy) lisinopril 20 mg tablet 20 mg PO HS 09/27/24 01/13/25 History lisinopril 20 1 tab PO DAILY 09/27/24 01/13/25 History mg-hydrochlorothiazide 25 mg tablet mupirocin calcium 2 % topical cream 1 applic topical BID 09/27/24 01/13/25 History tirzepatide 7.5 mg/0.5 mL 7.5 mg SQ WEEKLY 09/27/24 01/13/25 History subcutaneous pen injector (Mounjaro) sodium,potassium,mag sulfates 17.5 See Rx Instructions PO .COMPLEX 12/30/24 01/13/25 Rx gram-3.13 gram-1.6 gram oral soln #354 mL (Suprep Bowel Prep Kit) New Prescriptions to Start Prescriptions: Allergies Allergy/AdvReac Type Severity Reaction Status Date / Time Penicillins Allergy Unknown Verified 01/13/25 07:53 allergy reaction isosorbide AdvReac Headache Verified 01/13/25 07:53 Exam Data for Last 24 hours I & O for Last 24 hours: Intake & Output 01/09/25 01/10/25 01/11/25 01/12/25 23:59 23:59 23:59 23:59 Weight 264 lb *Routine HEENT Exam Head: Present normocephalic Eye: Present EOMI and PERRL ENT: Present mucous membranes moist *Routine Neck Exam Neck: Present supple *Routine Respiratory Exam Respiratory: Present CTA bilaterally *Routine Cardiovascular Exam Cardiovascular: Present RRR *Routine Abdominal Exam Abdominal: Present soft and normoactive bowel sounds; Absent tenderness *Routine Rectal Exam Rectal:: deferred *Routine Genitalia Exam Genitalia:: deferred *Routine Extremities Exam Extremities: Absent cyanosis, clubbing or edema *Routine Skin Exam Skin: Present warm; Absent rash *Routine Neurological Exam Neurological: Present alert and oriented X3 Assessment and Plan *Assessment and plan (1) Positive colorectal cancer screening using Cologuard test: Status: Acute Category: Medical Code(s): R19.5 - Other fecal abnormalities (2) Screening for colon cancer: Status: Acute Category: Medical Code(s): Z12.11 - Encounter for screening for malignant neoplasm of colon Plan A/P: 1. Positive Cologuard test is the preprocedural diagnosis. The patient will be anesthetized/sedated using MAC sedation. The patient has been seen and examined. Cardiac and lung assessment prior to the examination is stable. Proceed with planned screening colonoscopy.
--- NOTE | 2025-01-13 07:07 | P.PCN_ITS ---
[facility] Procedure Note Date: 01/13/25 Time: 09:44 Procedure Note:: Colonoscopy Procedure Report: Colonoscopy Endoscopist: Evelio Anguiano II, MD Referring physician: Perfecto Huitron MD Date of Procedure: January 13, 2025 Equipment: Olympus [id number] adult colonoscope Sedation: MAC sedation Indication: Mr. Corrigan is a 54-year-old gentleman who is here for screening colonoscopy secondary to a positive Cologuard. This is the patient's first colonoscopy. The patient reports no abdominal pain, weight loss, change in his bowel habits or rectal bleeding. He reports no family history of colon cancer. The examination is deemed medically necessary for screening colonoscopy. Procedure: Prior to the procedure, a history and physical exam was performed, and patient's medications and allergies were reviewed. The risks, benefits and alternatives of the sedation and procedure were discussed with the patient. All questions were answered and informed consent was obtained. The patient was brought to the procedure room. Patient identification and proposed procedure were verified by the physician and the nurse. The patient was placed in a left lateral decubitus position and the scope was passed under direct vision. Throughout the procedure, the patient's blood pressure, pulse, and oxygen saturations were monitored continuously. The colonoscopy was accomplished without difficulty. The patient tolerated the procedure well. Findings: On digital rectal examination there was normal rectal tone. There were no external hemorrhoids. The prostate was 2+, mildly firm on the upper margin but symmetric without nodules. The colonoscope was introduced through the anal canal to the rectum and advanced to the cecum. The ileocecal valve and appendiceal orifice were identified. The scope was advanced a short distance into the ileum which appeared grossly normal. The scope was then withdrawn into the colon. The cecum, ascending and transverse colon and mucosa were grossly normal. There were scattered diverticuli throughout the descending and sigmoid colon (LEFT colon). The rectum itself was normal. Upon retroflexion within the rectum there were grade 1-2 internal hemorrhoids. The preparation was excellent throughout with [place] Preparation Score of 9. The cecal time was 12 minutes. Impression: 1. Left-sided diverticulosis 2. Grade 1-2 internal hemorrhoids Plan: The Cologuard was falsely positive. The patient will not require screening/surveillance colonoscopy again for 10 years. I would encourage psyllium bulking fiber supplementation.
[2025-01-13 07:57] VITALS: BP 114/82; PULSE 74; RESP 18; O2SAT 96; BMI 37.4
[2025-01-13] MEDS: LACTATED RINGERS 1000ML 1,000 ML 50 ML IV (08:05)
--- NOTE | 2025-01-13 09:17 | EXP.ANES.CKL ---
[facility] Disclaimer: The information contained in this section may have been updated after the patient was seen, as this information can be updated by other users. Medical History Diaphoresis Fatigue LV dysfunction Typical angina Angina pectoris Hyperlipidemia Coronary artery disease Type 2 diabetes mellitus Abnormal EKG Hypertension STEMI (ST elevation myocardial infarction) Exposure to COVID-19 virus Obstructive Sleep Apnea-Hypopnea Syndrome Surgical History Status post coronary artery stent placement Family History Other No significant family history Social History Smoking Status: Former smoker tobacco type: cigarettes packs per day: 1 alcohol intake: never substance use type: denies use current occupational status: employed Travel in the last 8 weeks?: Inside the [facility] housing: house caffeine: Yes Have you lived/traveled outside US in past 30 days?: No Contact w/someone who lives/traveled outside US past 30 days?: No Exposure to someone with infectious disease in past 14 days?: No Do you have a fever (greater than 100.4 F or 38 C)?: No Have you tested positive for COVID-19?: No Exposed to someone with COVID-19 in past 14 days?: No Do you have a sore throat?: No Do you have a cough?: No Do you have any weakness?: No Do you have any diarrhea?: No Are you experiencing any unusual bleeding?: No Do you have any muscle aches/pain?: No Do you have any abdominal pain?: No Are you experiencing loss of taste or smell?: No [facility] Anesthesia Checklist Patient Identification Patient Identification: Arm Band and Verbal (Name & ) Structural Data Admitted From: Home Planned Operative Procedure/s: Colonscopy Consent for Planned Operative Procedure(s) Verified: Yes Verified Documents: Surgical Consent and History and Physical NPO Status Verified Time NPO: 00:00 Additional verifications Anesthesia Reactions: No Previous Colonoscopy: Yes Airway Assessment Mallampati Score:: Class II Dentition: Edentulous Neurological Assessment Level of Consciousness: Awake, Alert and Appropriate Hx Seizures: No Numbness or tingling in extremities: No Anesthesia Plan Anesthesia Risk discussed: Yes Anesthesia Plan: Verified ASA Class: III Anesthesia Type: MAC
[2025-01-13 09:45] VITALS: BP 89/50; PULSE 74; RESP 16; TEMP 36.4; O2SAT 93
[2025-01-13 09:55] VITALS: BP 98/47; PULSE 71; RESP 16; O2SAT 95
[2025-01-13 10:05] VITALS: BP 118/70; PULSE 69; RESP 18; O2SAT 95
[2025-01-13 10:15] VITALS: BP 110/75; PULSE 73; RESP 16; O2SAT 96
[2025-01-13 23:07] LABS: POC Glucose,Bedside 175 gm/dL (70-110)
[2025-01-13 23:07] LABS: POC Glucose,Bedside 210 gm/dL (70-110)
== END 2025-01-13 10:17 | disposition home or self-care (01) ==
PROVIDERS: PCP Family Medicine; Visit Provider Internal Medicine Gastroenterology
PROC: 0DJD8ZZ Inspection of Lower Intestinal Tract, Via Natural or Artificial Opening Endoscopic (ICD-10-PCS; CPT 45378; principal; 2025-01-13 09:30)
DX: Z12.11 Encounter for screening for malignant neoplasm of colon (principal); K57.30 Diverticulosis of large intestine without perforation or abscess without bleeding; K64.0 First degree hemorrhoids; K64.1 Second degree hemorrhoids; I25.2 Old myocardial infarction; I25.119 Atherosclerotic heart disease of native coronary artery with unspecified angina pectoris; I10 Essential (primary) hypertension; E78.5 Hyperlipidemia, unspecified; Z79.84 Long term (current) use of oral hypoglycemic drugs; Z87.891 Personal history of nicotine dependence; Z79.82 Long term (current) use of aspirin; Z79.85 Long-term (current) use of injectable non-insulin antidiabetic drugs; Z88.0 Allergy status to penicillin; Z88.8 Allergy status to other drugs, medicaments and biological substances
CPT/HCPCS: 45378; 82962; J2003; J2704; J7120

== ENCOUNTER 2025-02-12 10:11 | Day surgery (SDC) | payer OTHER, SELFPAY ==
[2025-02-12] VITALS (12 sets, daily range): BP systolic 81–124; BP diastolic 46–77; PULSE 68–88; RESP 16–18; TEMP 36.4–36.7; O2SAT 92–99; BMI 35.9
--- NOTE | 2025-02-12 07:19 | IR_ITS ---
APPROVED REPORT Patient Location: Outpatient PROCEDURES Left heart catheterization Left ventriculogram Selective coronary angiogram Drug-eluting stent deployment to the mid LAD INDICATION Coronary artery disease, Angina pectoris Informed consent was obtained prior to the procedure. COMPLICATIONS NONE Estimated Blood Loss: LESS THAN 10 ML TECHNIQUE One percent lidocaine used to anesthetize the right anterior aspect of the wrist. The right radial artery was accessed via the Seldinger technique. A 6 Frisian sheath was placed in the right radial artery. 2.5 mg of Verapamil, 800 mcg of nitroglycerin, 1mg Lidocaine and 5000 U Heparin were given through the arterial sheath. The JL3 catheter was also used to perform left heart catheterization, left ventriculogram and selective coronary angiogram. At the end of the diagnostic angiogram therapeutic heparin was administered giving a therapeutic ACT and the guide cath was placed in left main artery followed by Choice PT extra-support wire placed distally in the LAD. A 3.5 x 15 mm Javy frontier stent was deployed at 16 cecile reducing the severe stenosis to 0%. ANNIKA-3 flow was present before and after the procedure. At the end the procedure the apparatus was removed the sheath was removed and hemostasis was achieved using TR banding patient was transferred to the postop already in stable condition ANGIOGRAPHIC RESULTS The left main artery Normal The left anterior descending artery Has stents in the proximal to mid segment. Proximally the stents are widely patent with minimal in-stent restenosis with a mid vessel eccentric 80% stenosis The circumflex artery Nondominant with stents in the proximal to mid segment which are widely patent with minimal in-stent restenosis. The small high first obtuse marginal artery has an ostial 50% stenosis while a small second obtuse marginal artery has a 40 to 50% ostial stenosis The right coronary artery Is large and dominant has stents in the proximal to mid segment with 40% concentric in-stent restenosis followed by distal 30 to 40% stenosis The ARITA ventriculogram reveals Normal 60% The left ventricular end-diastolic pressure 20 mmHg IMPRESSION Coronary disease as described above Successful stenting to mid LAD severe disease reduced to 0% with 1 drug-eluting stent Normal ejection fraction Mildly elevated LVEDP PLAN 1. Dual antiplatelet therapy 2. Cardiac rehabilitation 3. Avoidance of tobacco products 4. Risk factor modification 5. LDL less than 55 to be achieved with high intensity statin Electronically signed by : Gerber Dave MD 02/12/2025 13:59:54
[2025-02-12 10:33] LABS: Hematocrit 43.8 % (42.0-52.0); Hemoglobin 14.4 g/dL (14.1-18.0); Immature Granulocytes % 0.8 %; Mean Corpuscular HGB Conc 32.9 g/dL (31.8-35.4); Mean Corpuscular Hemoglobin 27.9 pg (27.0-31.2); Mean Corpuscular Volume 84.7 fl (80-94); Nucleated Red Blood Cells % 0 %; Platelet Count 234 K/mm3 (142-424); Red Blood Count 5.17 M/mm3 (4.60-6.20); Red Cell Distribution Width-SD 43.8 fL; White Blood Count 7.5 K/mm3 (4.8-10.8)
[2025-02-12 10:34] LABS: Chloride 103 mmol/L (98-107); Potassium 4.1 mmoL/L (3.5-5.1); Sodium 134 mmol/L (136-145)
[2025-02-12 10:37] LABS: Blood Urea Nitrogen 21 mg/dl (9-20); Creatinine Clearance Estimated 120 mL/min (50-200); Creatinine,Serum 1.10 mg/dl (0.66-1.25); Estimated Glomerular Filt Rate 69 ml/min (>60); GFR (African American) 84 ML/MIN (>60)
[2025-02-12 10:38] LABS: Anion Gap 9.1 mEq/L (5-15); Calcium 8.7 mg/dl (8.4-10.2); Carbon Dioxide 26 mmol/L (22.0-30.0); Glucose 147 mg/dl (74-100)
[2025-02-12] MEDS: HEPARIN 1,000 UNITS/500ML NS (CATH LAB) 3000 UNIT IV (12:15)
[2025-02-12] MEDS: NITROGLYCERIN 800MCG/8ML SYR (CATH LAB) 800 MCG IA (12:16)
[2025-02-12] MEDS: VERAPAMIL 2.5MG/ML 2ML VIAL 2.5 MG IV (12:16)
[2025-02-12] MEDS: HEPARIN 1,000 UNITS/ML 10ML VIAL (CATH LAB) 5000 UNIT IV (12:16)
[2025-02-12] MEDS: LIDOCAINE 1% 10ML MDV 10 ML IJ (12:16)
[2025-02-12] MEDS: 0.9 % SODIUM CHLORIDE 500 ML 25 ML IV (12:17)
[2025-02-12] MEDS: MIDAZOLAM HCL 1MG/ML 5ML VIAL 1 MG IV (12:22)
[2025-02-12] MEDS: FENTANYL 100MCG/2ML VIAL 50 MCG IV (12:23)
[2025-02-12] MEDS: IOPAMIDOL-370 (76%);100ML BOTTLE 90 ML IV (14:38)
[2025-02-12 14:41] LABS: CATHL Activated Clotting Time 400 SEC (74-125)
== END 2025-02-12 15:16 | disposition home or self-care (01) ==
PROVIDERS: PCP Family Medicine; Visit Provider Internal Medicine
PROC: 4A023N7 Measurement of Cardiac Sampling and Pressure, Left Heart, Percutaneous Approach (ICD-10-PCS; CPT 93452; principal; 2025-02-12 13:15)
DX: I25.118 Atherosclerotic heart disease of native coronary artery with other forms of angina pectoris (principal); R94.31 Abnormal electrocardiogram [ECG] [EKG]; E11.9 Type 2 diabetes mellitus without complications; I10 Essential (primary) hypertension; I51.9 Heart disease, unspecified; E78.5 Hyperlipidemia, unspecified; G47.33 Obstructive sleep apnea (adult) (pediatric); R61 Generalized hyperhidrosis; I25.2 Old myocardial infarction; R53.83 Other fatigue; Z87.891 Personal history of nicotine dependence; Z95.5 Presence of coronary angioplasty implant and graft; Z79.82 Long term (current) use of aspirin; Z79.84 Long term (current) use of oral hypoglycemic drugs; Z79.85 Long-term (current) use of injectable non-insulin antidiabetic drugs; Z79.02 Long term (current) use of antithrombotics/antiplatelets; Z79.1 Long term (current) use of non-steroidal anti-inflammatories (NSAID); Z79.899 Other long term (current) drug therapy; Z88.0 Allergy status to penicillin; Z88.8 Allergy status to other drugs, medicaments and biological substances
CPT/HCPCS: 36415; 80048; 85025; 85347; 92928; 93458; 99152; C1725; C1769; C1874; C9600; J1200; J1644; J3010; J7040; Q9967

== ENCOUNTER 2025-02-15 08:24 | Outpatient (CLI) | payer OTHER, SELFPAY ==
--- OUTSIDE RECORDS SUMMARY | 2023-08-27 11:30 | XMS_ITS ---
Author Organization [facility] Address [address] [place] [phone] Care Team Providers Care Continuous Weld Pipe Mill Supervisor Name Role Phone Jessica Huitron Primary Care Provider Allergies Allergen (clinical drug ingredient) Drug/Non Drug Allergy documented on EMR Reaction Allergy Type Onset Date Status Penicillin Unknown Drug Allergy Active REASON FOR VISIT Check Up and Refills Medications Medication SIG (Take, Route, Frequency, Duration) Notes Start Date End Date Status tiZANidine HCl 4 MG 1 tab(s) orally tid Not-Taking Ozempic (2 MG/DOSE) 8 MG/3ML as directed Subcutaneous Active Nitroglycerin 0.4 MG 1 tab(s) Sublingual prn chest pain. May repeat q 5 minutes x 2 08/27/2023 Active Ranolazine ER 500 MG 1 tablet Orally Twice a day Active Ozempic (0.25 or 0.5 MG/DOSE) 2 MG/3ML 0.5 m Subcutaneous weekly Active Aspirin 81 MG 1 cap(s) orally every 4 hours Active Glimepiride 2 MG take 1 tablet by mouth every day for 14 days Active metFORMIN HCl 500 MG 1 tab(s) orally 2 times a day Not-Taking Accu-Chek SmartView 1 TEST STRIP(S) FINGERSTICK ONCE A DAY OR DIRECTED; Duration: 30 DAYS 12/18/2018 Active Fenofibrate 160 MG 1 tablet Orally Once a day Active GLUCOMETER DIRECTED TEST QD Active Valtrex 1 GM 2 tab(s) orally 2 times a day x 2 doses 11/10/2019 Active Atorvastatin Calcium 80 MG 1 tablet Orally Once a day Active Synjardy XR 12.5-1000 MG 2 tabs Orally Once a day Active Lisinopril-hydroCHLOR Othiazide 20-25 MG 1 tab(s) orally once a day in the morning Active Lisinopril 20 MG 1 tab(s) orally at bedtime Active Indomethacin 25 MG 1 cap(s) Three times a day due for a check up Active Carvedilol 3.125 MG 1 tab(s) orally 2 times a day Active amLODIPine Besylate 5 MG take 1 tablet by mouth every day Active Clopidogrel Bisulfate 75 MG 1 tab(s) orally once a day 01/08/2022 Active Social History Tobacco Use: Social History Observation Description Date Details (start date - stop date) Former Smoker NA - 05/09/2020 CURRENT TOBACCO USE: Question Answer Notes Are you a: former smoker When did you stop smoking? 05/09/2020 Problems Problem Type SNOMED Code ICD Code Onset Dates Problem Status W/U Status Risk Notes Problem Localized, primary osteoarthritis of the pelvic region and thigh (143169997) Primary osteoarthritis of right hip (M16.11) Active confirmed Vital Signs Weight 272.8 lbs 08/27/2023 Blood pressure systolic 114 mm Hg 08/27/19 24 Blood pressure diastolic 74 mm Hg 024 Heart Rate 79 /min 08/27/2023 Height 70.50 in 08/27/2023 BMI 38.59 kg/m2 08/27/2023 Encounters Encounter Location Date Provider [facility] [address] [place] [phone] 08/27/2023 Jessica Huitron Type 2 diabetes ana maria itus without complication, without long-term current use of insulin E11.9 ; ASCVD (arteriosclerotic cardiovascular disease) I25.10 ; Essential hypertension I10 ; Dyslipidemia E78.5 and Primary osteoarthritis of right hip M16.11 Assessments Encounter Date Diagnosis (ICD Code) Assessment Notes Treatment Notes Treatment Clinical Notes Section Notes 08/27/2023 Type 2 diabetes mellitus without complication, without long-term current use of insulin (ICD-10 - E11.9) 08/27/2023 ASCVD (arteriosclerotic cardiovascular disease) (ICD-10 - I25.10) 08/27/2023 Essential hypertension (ICD-10 - I10) 08/27/2023 Dyslipidemia (ICD-10 - E78.5) 08/27/2023 Primary osteoarthritis of right hip (ICD-10 - M16.11) Plan Of Treatment Medication Medication Name Sig Start Date Stop Date Notes Ozempic (2 MG/DOSE) 8 MG/3ML as directed Subcutaneous Nitroglycerin 0.4 MG 1 tab(s) Sublingual prn chest pain. May repeat q 5 minutes x 2 08/27/2023 Ranolazine ER 500 MG 1 tablet Orally Twi ce a day Glimepiride 2 MG take 1 tablet by trudi th every day for 14 days Fenofibrate 160 MG 1 tablet Orally Once a day Atorvastatin Calcium 80 MG 1 tablet Orally Once a day Synjardy XR 12.5-1000 MG 2 tabs Orally O nce a day Lisinopril-hydroCHLOROthi azide 20-25 MG 1 tab(s) orally once a day in the morning Lisinopril 20 MG 1 tab(s) orally at bedtime Indomethacin 25 MG 1 cap(s) Three times a day due for a check up Carvedilol 3.125 MG 1 tab(s) orally 2 ti mes a day amLODIPine Besylate 5 MG take 1 tablet b y mouth every day Clopidogrel Bisulfate 75 MG 1 tab(s) orally once a day 01/08/2022 Next Appt Details Follow Up: 6 Months, Reason: Progress Notes * Tang SHORTDOB: [birth year] (54 yo M)Acc No.[id number]:08/27/2023 Progress Notes Patient: Tang CAMACHO Provider: eJssica Huitron M.D. :1970 A ge:52 Y S ex:Male Date:08/27/2023 Address:[place] [address], [id number] Subjective: * Chief Complaints: * 1 . Check Up and Refills. * HPI: H PI: Bello comes in for scheduled checkup. Interim history is reviewed and he has had a stable course. He continues to follow with Dr. Celaya for his diabetes and continues on the same regimen. He reports good control of his blood sugar. He also continues to follow with cardiology (Dr. Dave) with no change in his regimen. Cardiology has been monitoring his lipids. * ROS: D ERMATOLOGY: no R benita. n o H pastor. G ASTROENTEROLOGY: no N ausea. n o V omiting. n o D iarrhea.? U ROLOGY: no D ifficulty urinating. n o B lood in urine. * Medical History: H BP, Type 2 DM - diagnosed 04/2017 - followed by Dr. Celaya, positive Covid 03/2020, Chronic neck pain, ASCVD - s/p NSTEMI, HLP, Severe DJD right hip - 03/2024, ZIGGY. * Surgical History: f ull mouth extraction , Cardiac Stent 3x - Dr. Dave 01/2023. * Hospitalization/Major Diagno stic Procedure: [facility] - Sliced Finger w/ Metal Can Lid 11/2022. * Family History: F ather: 72 yrs, Stroke. M other: 69 yrs, complications due to a double lung transplant for COPD. 1 sister(s) - healthy. 1 daughter(s) . . * Social History: C URRENT TOBACCO USE A re you a: f ormer smoker, W hen did you stop smoking? 0 05/09/2020. C affeine: yes, frequency: diet mt dew. Home smoke detector use: yes. Alcohol: No. * Medications: T aking Ozempic (2 MG/DOSE) 8 MG/3ML Solution Pen-injector as directed Subcutaneous , Taking GLUCOMETER DIRECTED TEST QD , Taking Valtrex 1 GM Tablet 2 tab(s) orally 2 times a day x 2 doses , Taking Accu-Chek SmartView TEST STRIPS 1 TEST STRIP(S) FINGERSTICK ONCE A DAY OR DIRECTED , Taking Ranolazine ER 500 MG Tablet Extended Release 12 Hour 1 tablet Orally Twice a day , Taking Atorvastatin Calcium 80 MG Tablet 1 tablet Orally Once a day , Taking Ozempic (0.25 or 0.5 MG/DOSE) 2 MG/3ML Solution Pen-injector 0.5 m Subcutaneous weekly , Taking Aspirin 81 MG Capsule 1 cap(s) orally every 4 hours , Taking Clopidogrel Bisulfate 75 MG Tablet 1 tab(s) orally once a day , Taking Fenofibrate 160 MG Tablet 1 tablet Orally Once a day , Taking Indomethacin 25 MG Capsule TAKE 1 CAPSULE BY MOUTH THREE TIMES DAILY , Notes to Pharmacist: due for a check up, Taking Lisinopril 20 MG Tablet 1 tab(s) orally at bedtime , Taking Lisinopril-hydroCHLOROthiazide 20-25 MG Tablet 1 tab(s) orally once a day in the morning , Taking Carvedilol 3.125 MG Tablet 1 tab(s) orally 2 times a day , Taking amLODIPine Besylate 5 MG Tablet TAKE 1 TABLET BY MOUTH EVERY DAY , Taking Glimepiride 2 MG Tablet TAKE 1 TABLET BY MOUTH EVERY DAY FOR 14 DAYS , Not-Taking Synjardy XR 12.5-1000 MG Tablet Extended Release 24 Hour 2 tabs Orally Once a day , Not-Taking metFORMIN HCl 500 MG Tablet 1 tab(s) orally 2 times a day , Not-Taking tiZANidine HCl 4 MG Tablet 1 tab(s) orally tid , Discontinued Zithromax Z-Carrington 250 MG Tablet as directed Orally , Medication List reviewed and reconciled with the patient * Allergies: P enicillin. Objective: * Vitals: W t:272.8, Temp:97.4, BP:114/74, HR:79, Nurse:LEE, Ht: 70.50, BMI:38.59. * Examination: C ardiology: General Appearance: p leasant, NAD. . H EENT: u nremarkable. C arotid upstroke: n ormal, no bruits. H eart sounds: R RR, normal S1, S2. M urmur, click , gallop: n one. L ungs: c lear, no rales or wheezes. A bdomen: p ositive BS, soft, nontender. E xtremities: n o leg edema. Assessment: * Assessment: 1. A SCVD (arteriosclerotic cardiovascular disease) - I25.10 (Primary) 2 . T ype 2 diabetes mellitus without complication, without long-term current use of insulin - E11.9? 3. E ssential hypertension - I10 4 . D yslipidemia - E78.5 5. P rimary osteoarthritis of right hip - M16.11 Plan: * Treatment: 2. T ype 2 diabetes mellitus without complication, without long-term current use of insulin Refill Glimepiride Tablet, 2 MG, take 1 tablet by mouth every day for 14 days, 30, Refills 5; C ontinue Synjardy XR Tablet Extended Release 24 Hour, 12.5-1000 MG, 2 tabs, Orally, Once a day; C ontinue Ozempic (2 MG/DOSE) Solution Pen-injector, 8 MG/3ML, as directed, Subcutaneous. 3. E ssential hypertension Refill amLODIPine Besylate Tablet, 5 MG, take 1 tablet by mouth every day, 30, Refills 5; R efill Lisinopril-hydroCHLOROthiazide Tablet, 20-25 MG, 1 tab(s), orally, once a day in the morning, 30, Refills 5; R efill Lisinopril Tablet, 20 MG, 1 tab(s), orally, at bedtime, 30, Refills 5. ? 4. D yslipidemia Continue Atorvastatin Calcium Tablet, 80 MG, 1 tablet, Orally, Once a day; C ontinue Fenofibrate Tablet, 160 MG, 1 tablet, Orally, Once a day. 5. P rimary osteoarthritis of right hip Refill Indomethacin Capsule, 25 MG, 1 cap(s), Three times a day, 90, Refills 5, Notes to Pharmacist: due for a check up. * Follow Up: 6 Months * Images: Billing Information: * Visit Code: 38881 Office Visit, Est Pt., Level 3. * Procedure Codes: * Electronic signature of Jessica Huitron MD on 02/15/2025 at 08:32 AM EST Sign off status: Pending * Provider: Jessica Huitron M.D. Date: 0 08/27/2023 Generated for Bryan herzog/Elias/Dee on: 04/17/2024 08:32 AM EST History and Physical Notes * Examination Category Sub-Category Detail Notes Category Not es Cardiology Lungs: clear, no rales or wheezes HEENT: unremarkable Heart sounds: RRR, normal S1, S2 Abdomen: positive BS, soft, n ontender Carotid upstroke: normal, no bruits Extremities: no leg edema Murmur, click , gallop: none General Appearance: pleasant, NAD.
--- OUTSIDE RECORDS SUMMARY | 2024-05-26 04:00 | XMS_ITS ---
Author Organization [facility] Address [address] [place] [id number] Care Team Providers Care Student Success Counselor Name Role Phone Jessica Huitron Primary Care Provider Allergies Allergen (clinical drug ingredient) Drug/Non Drug Allergy documented on EMR Reaction Allergy Type Onset Date Status Penicillin Unknown Drug Allergy Active Results Component Value Reference Range Notes Glycohemoglobin A1c (in hous e) Reviewed date:06/04/2024 09:44:26 AM Interpretation:7.9% Performing Lab: Notes/Report: 7.9% glycohemoglobin 7.9% 5 - 6.5 % P-Comprehensive Metabolic Pa farhana (CMP) Reviewed date:06/04/2024 09:44:26 AM Interpretation:gluc 193 Performing Lab: Notes/Report: CLIA: [id number] Dawood Bernabe MD, [employer] [employer] [address] , [address], [place] [address] Test performed by [facility], [place] Sodium 141 135-145 mmol/L Potassium 4.1 3.5-5.3 mmol/L Chloride 105 97-108 mmol/L CO2 23 22-32 mmol/L Glucose 193 65-99 mg/dL BUN 19 6-20 mg/dL Creatinine 1.14 0.70-1.30 mg/dL Calcium 9.4 8.6-10.4 mg/dL eGFR by Creatinine 76 >59 mL/min/1.73m2 Protein 6.7 6.0-8.3 g/dL Albumin 4.4 3.5-5.3 g/dL Alkaline Phosphatase 94 40-129 IU/L ALT (SGPT) 29 <5-55 IU/L AST (SGOT) 22 <5-46 IU/L Bilirubin, Total 0.3 <0.2-1.2 mg/dL A/G Ratio 1.9 1.1-2.5 P-Lipid Panel Reviewed date:06/04/2024 09:44:26 AM Interpretation:trigs 293, hdl 24 Performing Lab: Notes/Report: Test performed by [facility], [address] , [address], [place] [address] Dawood Bernabe MD, [employer] CLIA: [id number] Cholesterol 86 <200 mg/dL Triglycerides 293 <150 mg/dL HDL Cholesterol 24 >39 mg/dL Cholesterol / HDL Ratio 3.58 0.00-4.99 Ratio Non-HDL Cholesterol 62 <130 mg/dL LDL Cholesterol (Calculation) 3 <130 mg/dL LDL Cholesterol Levels* Less than 100 mg/dL Optimal 100 to 129 mg/dL Near Optimal/ Above Optimal 130 to 159 mg/dL Borderline High 160 to 189 mg/dL High 190 mg/dL and above Very High * Categories as recommended by the 2004 ATPIII guidelines LDL/HDL Ratio 0.1 <3.3 Ratio LDL Cholesterol Patient History Test Date: 05/26/2024 LDL Results: 3 Units: mg/dL % Change: - P-PSA Reviewed date:06/04/2024 09:44:26 AM Interpretation:Normal Performing Lab: Notes/Report: Test performed by [facility], [address] , [address], [place] [address] Dawood Bernabe MD, [employer] CLIA: [id number] PSA 0.62 <4.00 ng/mL Please note this is an ultrasensitive PSA assay with a lower limit of detection of 0.014 ng/mL. This test is performed by the Sushma ECLIA methodology. Values obtained with different assay methods or kits cannot be directly compared. REASON FOR VISIT ckup & refills Medications Medication SIG (Take, Route, Frequency, Duration) Notes Start Date End Date Status Ozempic (2 MG/DOSE) 8 MG/3ML as directed Subcutaneous Active Glimepiride 2 MG take 1 tablet by mouth every day for 14 days Active Fenofibrate 160 MG 1 tablet Orally Once a day Active Synjardy XR 12.5-1000 MG 2 tabs Orally Once a day Active Carvedilol 3.125 MG 1 tab(s) orally 2 times a day Active Nitroglycerin 0.4 mg DISSOLVE 1 TABLET UNDER THE TONGUE EVERY 5 MINUTES NEEDED FOR CHEST PAIN. DO NOT EXCEED A TOTAL OF 3 DOSES IN 15 MINUTES. IF NO RELIEF AFTER 3 DOSES CALL 911/GO TO ER; Duration: 10 Active Lisinopril 20 MG 1 tab(s) orally at bedtime Active Indomethacin 25 mg TAKE ONE CAPSULE BY MOUTH THREE TIMES DAILY; Duration: 90 Active Atorvastatin Calcium 80 MG 1 tablet Orally Once a day Active Ranolazine ER 500 MG 1 tablet Orally Twice a day Not-Taking GLUCOMETER DIRECTED TEST QD Active Lisinopril-hydroCHLORO thiazide 20-25 MG TAKE ONE TABLET BY MOUTH EVERY MORNING; Duration: 120 Active Valtrex 1 GM 2 tab(s) orally 2 times a day x 2 doses 11/10/2019 Active Accu-Chek SmartView 1 TEST STRIP(S) FINGERSTICK ONCE A DAY OR DIRECTED; Duration: 30 DAYS DX : E11.65 12/18/2018 Active Aspirin 81 MG 1 cap(s) orally every 4 hours Active Clopidogrel Bisulfate 75 mg TAKE ONE TABLET BY MOUTH EVERY DAY Active Social History Tobacco Use: Social History Observation Description Date Details (start date - stop date) Former Smoker NA - 05/09/2020 CURRENT TOBACCO USE: Question Answer Notes Are you a: former smoker When did you stop smoking? 05/09/2020 Vital Signs Weight 270.2 lbs 05/26/2024 Blood pressure systolic 110 mm Hg 05/26/19 Blood pressure diastolic 74 mm Hg 025 Heart Rate 99 /min 05/26/2024 Height 70.50 in 05/26/2024 BMI 38.22 kg/m2 05/26/2024 Encounters Encounter Location Date Provider Diagnosis [facility] [address] [facility] [address] [place], [place] [phone] 05/26/2024 R Perfecto Tomy Dyslipidemia E78.5 ; Type 2 diabetes mellitus without complication, without long-term current use of insulin E11.9 ; Screening for prostate cancer Z12.5 ; Essential hypertension I10 ; ASCVD (arteriosclerotic cardiovascular disease) I25.10 ; Primary osteoarthritis of right hip M16.11 and ZIGGY (obstructive sleep apnea) G47.33 Assessments Encounter Date Diagnosis (ICD Code) Assessment Notes Treatment Notes Treatment Clinical Notes Section Notes 05/26/2024 Dyslipidemia (ICD-10 - E78.5) 05/26/2024 Type 2 diabetes mellitus without complication, without long-term current use of insulin (ICD-10 - E11.9) 05/26/2024 Screening for prostate cancer (ICD-10 - Z12.5) 05/26/2024 Essential hypertension (ICD-10 - I10) 05/26/2024 ASCVD (arteriosclerotic cardiovascular disease) (ICD-10 - I25.10) 05/26/2024 Primary osteoarthritis of right hip (ICD-10 - M16.11) 05/26/2024 ZIGGY (obstructive sleep apnea) (ICD-10 - G47.33) Plan Of Treatment Medication Medication Name Sig Start Date Stop Date Notes Ozempic (2 MG/DOSE) 8 MG/3ML as directed Subcutaneous Glimepiride 2 MG take 1 tablet by trudi every day for 14 days Fenofibrate 160 MG 1 tablet Orally Once a day Synjardy XR 12.5-1000 MG 2 tabs Orally Once a day Carvedilol 3.125 MG 1 tab(s) orally 2 times a day Atorvastatin Calcium 80 MG 1 tablet Orally Once a day Clopidogrel Bisulfate 75 mg TAKE ONE TAB LET BY MOUTH EVERY DAY Next Appt Details Follow Up: 6 Months, Reason: Progress Notes * Tang SHORTDOB: [birth year] (54 yo M)Acc No.[id number]:05/26/2024 Progress Notes Patient: Tang CAMACHO Provider: Jessica Huitron M.D. :1970 A ge:53 Y S ex:Male Date:05/26/2024 Address:[facility] [address] [place], [id number] Subjective: * Chief Complaints: * 1 . Ckup & refills. * HPI: H PI: 53 year old male presents with c/o Patient is here today for?Pt is here today for a check up and needs refills. Pt sts she is doing well and has no new concerns or complaints at this time. . C ardiology: He continues to follow with cardiology and had additional 2 stents placed in February.. His Ranexa and amlodipine were discontinued because of hypotension. E ndocrinology: He states his blood sugar readings have been high at home. He has not been as diligent with his diet since the of his 4 months ago. R heumatology: He continues with right hip pain and has been told he will need hip replacement eventually. * ROS: D ERMATOLOGY: no R benita. [...] , Cardiac Stent 3x - Dr. Dave 01/2023, Coronary stent x 2 - Tenzin 02/2024. * Hospitalization/Major Diagno stic Procedure: H UTC - Sliced Finger w/ Metal Can [...] mt dew. Home smoke detector use: yes. Marital Status: . Alcohol: No. * Medications: T aking Atorvastatin Calcium 80 MG Tablet 1 tablet Orally Once a day , Taking Synjardy XR 12.5-1000 MG Tablet Extended Release 24 Hour 2 tabs Orally Once a day , Taking GLUCOMETER DIRECTED TEST QD , Taking Aspirin 81 MG Capsule 1 cap(s) orally every 4 hours , Taking Ozempic (2 MG/DOSE) 8 MG/3ML Solution Pen-injector as directed Subcutaneous , Taking Carvedilol 3.125 MG Tablet 1 tab(s) orally 2 times a day , Taking Accu-Chek SmartView TEST STRIPS 1 TEST STRIP(S) FINGERSTICK ONCE A DAY OR DIRECTED , Notes to Pharmacist: DX : E11.65, Taking Valtrex 1 GM Tablet 2 tab(s) orally 2 times a day x 2 doses , Taking Lisinopril-hydroCHLOROthiazide 20-25 MG Tablet TAKE ONE TABLET BY MOUTH EVERY MORNING , Taking Indomethacin 25 mg Capsule TAKE ONE CAPSULE BY MOUTH THREE TIMES DAILY , Taking Fenofibrate 160 MG Tablet 1 tablet Orally Once a day , Taking Lisinopril 20 MG Tablet 1 tab(s) orally at bedtime , Taking Glimepiride 2 MG Tablet take 1 tablet by mouth every day for 14 days , Taking Nitroglycerin 0.4 mg Tablet Sublingual DISSOLVE 1 TABLET UNDER THE TONGUE EVERY 5 MINUTES NEEDED FOR CHEST PAIN. DO NOT EXCEED A TOTAL OF 3 DOSES IN 15 MINUTES. IF NO RELIEF AFTER 3 DOSES CALL 911/GO TO ER , Taking Clopidogrel Bisulfate 75 mg Tablet TAKE ONE TABLET BY MOUTH EVERY DAY , Not-Taking Ranolazine ER 500 MG Tablet Extended Release 12 Hour 1 tablet Orally Twice a day , Medication List reviewed and reconciled with the patient * Allergies: P enicillin. Objective: * Vitals: W t:270.2, Temp:97.7, BP:110/74, HR:99, O2 Sat:97% on RA, Nurse:cherie, Ht: 70.50, BMI:38.22. * Examination: C ardiology: General Appearance: A ffect a bit subdued., NAD. .?HEENT: u nremarkable. C arotid upstroke: n ormal, no bruits. H eart sounds: R RR, normal S1, S2. M urmur, click , gallop: n one. L ungs: c lear, no rales or wheezes. A bdomen: p ositive BS, soft, nontender. E xtremities: n o leg edema. ? Assessment: * Assessment: 1. D yslipidemia - E78.5 (Primary) 2 . T ype 2 diabetes mellitus without complication, without long-term current use of insulin - E11.9 3 . S creening for prostate cancer - Z12.5 4 . E ssential hypertension - I10 5 . ASCVD (arteriosclerotic cardiovascular disease) - I25.10 6 . P rimary osteoarthritis of right hip - M16.11 7 . O SA (obstructive sleep apnea) - G47.33 ? Plan: * Treatment: Value Reference Range A /G Ratio 1.9 1.1-2.5 - * A lbumin 4.4 3.5-5.3 - g/dL * A lkaline Phosphatase 94 40-129 - IU/L * A LT (SGPT) 29 <5-55 - IU/L * A ST (SGOT) 22 <5-46 - IU/L * B ilirubin, Total 0.3 <0.2-1.2 - mg/dL * B UN 19 6-20 - mg/dL * C alcium 9.4 8.6-10.4 - mg/dL * C hloride 105 97-108 - mmol/L * C O2 23 22-32 - mmol/L * C reatinine 1.14 0.70-1.30 - mg/dL * G lucose 193 H 65-99 - mg/dL * P otassium 4.1 3.5-5.3 - mmol/L * S odium 141 135-145 - mmol/L * P rotein 6.7 6.0-8.3 - g/dL * e GFR by Creatinine 76 >59 - mL/min/1.73m2 * Jessica Huitron 06/04/2024 9 :44:15 AM >See phone encounter ?LAB: P-Lipid Panel (Collection Date & Time - 05/26/2024 08:26 AM)?trigs 293, hdl 24* Value Reference Range C holesterol / HDL Ratio 3.58 0.00-4.99 - Ratio * C holesterol 86 <200 - mg/dL * H DL Cholesterol 24 L >39 - mg/dL * L DL Cholesterol (Calculation) 3 <130 - mg/d L * L DL/HDL Ratio 0.1 <3.3 - Ratio * N on-HDL Cholesterol 62 <130 - mg/dL * T riglycerides 293 H <150 - mg/dL * Jessica Huitron 06/04/2024 9 :44:15 AM >See phone encounter 2.?Type 2 diabetes mellitus without complication, without long-term current use of insulin? Continue Glimepiride Tablet, 2 MG, take 1 tablet by mouth every day for 14 days;?Continue Ozempic (2 MG/DOSE) Solution Pen-injector, 8 MG/3ML, as directed, Subcutaneous;?Continue Synjardy XR Tablet Extended Release 24 Hour, 12.5-1000 MG, 2 tabs, Orally, Once a day.?LAB: Glycohemoglobin A1c (in house) (Collection Date & Time - 05/26/2024)? 7.9%* Value Reference Range g lycohemoglobin 7.9% 5 - 6.5 % * Brea Hinojosa 05/26/2024 9:48: 36 AM > Jessica Hiutron 06/04/2024 9:44:15 AM >See phone encounter 3.?Screening for prostate cancer?LAB: P-PSA (Collection Date & Time - 05/26/2024 08:26 AM)?Normal* Value Reference Range P SA 0.62 <4.00 - ng/mL * Jessica Huitron 06/04/2024 9 :44:15 AM >See phone encounter 4.?ASCVD (arteriosclerotic cardiovascular disease)? Continue Carvedilol Tablet, 3.125 MG, 1 tab(s), orally, 2 times a day;?Continue Clopidogrel Bisulfate Tablet, 75 mg, TAKE ONE TABLET BY MOUTH EVERY DAY.?? * Procedure Codes: 9 [address] [place], [address] GLYCATED HEMOGLOBIN TEST, Modifiers: QW , 3051F HG A1C>EQUAL 7.0%<8.0%, 3074F SYST BP LT 130 MM HG, 3078F DIAST BP < 80 MM HG * Follow Up: 6 Months * Images: Billing Information: * Visit Code: 02429 Office Visit, Est Pt., Level 4. * Procedure Codes: [address] [place]. [address] GLYCATED HEMOGLOBIN TEST. Modifiers: QW 3051F HG A1C>EQUAL 7.0%<8.0%. 3074F SYST BP LT 130 MM HG. 3078F DIAST BP < 80 MM HG. * Electronic signature of Jessica Huitron MD on 02/15/2025 at 08:30 AM EST Sign off status: Pending * Provider: Jessica Huitron M.D. Date: 0 05/26/2024 Generated for Bryan herzog/Elias/Melissaransmitting on: 04/17/2024 08:30 AM EST History and Physical Notes * HPI (History of Present Illness) Category Sub-Category Detail Notes Category Not es HPI Patient is here today for Pt is here today for a check up and needs refills. Pt sts she is doing well and has no new concerns or complaints at this time. Examination Category Sub-Category Detail Notes Category Not es Cardiology Lungs: clear, no rales or wheezes HEENT: unremarkable Heart sounds: RRR, normal S1, S2 Abdomen: positive BS, soft, n ontender Carotid upstroke: normal, no bruits Extremities: no leg edema Murmur, click , gallop: none General Appearance: Affect a bit subdued ., NAD.
--- OUTSIDE RECORDS SUMMARY | 2024-09-25 10:45 | XMS_ITS ---
Author Organization [facility] Address [address] [place] [id number] Care Team Providers Care Operations Engineer Name Role Phone Jessica Huitron Primary Care Provider Bin Kohler Unavailable [phone] Allergies Allergen (clinical drug ingredient) Drug/Non Drug [...] 09/25/2024 Encounters Encounter Location Date Provider Diagnosis [facility] [address] [facility] [address] [place] [phone] 09/25/2024 Bin Kohler Cellulitis of forehe ad [...] * Tang SHORTDOB: [birth year] (54 yo M)Acc No.[id number]:09/25/2024 Progress Notes Patient: Tang CAMACHO Provider: Angella Kohler M.D. :1970 A ge:53 Y S ex:Male Date:09/25/2024 Address: [address] [id number] Pcp:Jessica Huitron Subjective: * Chief Complaints: * [...] * Images: Billing Information: * Visit Code: 78129 Office Visit, Est Pt., Level 3. * Procedure Codes: 1036F TOBACCO NON-USER. G8783 BP SCR PRFRM RCMDD DEFIND SCR INTVL. G8752 MOST RECENT SYSTOLIC BP < 140MM HG. G8754 MOST RECENT DIASTOLIC BP < 90MM HG. * Electronic signature of Leny Kohler MD on 02/15/2025 at 08:30 AM EST Sign off status: Pending * Provider: Angella Kohler M.D. Date: 0 09/25/2024 Generated for Bryan herzog/Elias/Taishaitting on: 1 04/17/2024 08:30 AM EST History and Physical [...]
--- OUTSIDE RECORDS SUMMARY | 2024-09-28 10:00 | XMS_ITS ---
[facility] Address [address] [place] [id number] Care Team Providers Care Sports Internship Name Role Phone Jessica Huitron Primary Care Provider [phone] Bin Kohler Unavailable [phone] Allergies Allergen (clinical drug ingredient) Drug/Non Drug Allergy documented on EMR Reaction Allergy Type Onset Date Status Penicillin Unknown Drug Allergy Active REASON FOR VISIT [facility]/F/U ER Medications Medication SIG (Take, Route, Frequency, Duration) Notes Start Date End Date Status Clopidogrel Bisulfate 75 mg 1 tabler by mouth once; Duration: 90 days Active Synjardy XR 12.5-1000 MG 2 tabs Orally O nce a day; Duration: 90 days Active Indomethacin 25 mg TAKE ONE CAPSULE BY MOUTH THREE TIMES DAILY; Duration: 90 Active Fenofibrate 160 MG 1 tablet Orally Once a day; Duration: 90 days Active Lisinopril 20 MG 1 tab(s) orally at bedtime; Duration: 90 days Active Glimepiride 4 MG 1 tablet with [...] CALL 911/GO TO ER; Duration: 10 Active Lisinopril-hydroCHLOROth iazide 20-25 MG TAKE ONE TABLET BY MOUTH EVERY MORNING; Duration: 120 Active Valtrex 1 GM 2 tab(s) orally 2 times a day x 2 doses 11/10/2019 Active Carvedilol 3.125 MG 1 tab(s) orally 2 times a day Active Mounjaro 2.5 MG/0.5ML as directed Subcutaneous Active Accu-Chek SmartView 1 TEST STRIP(S) FINGERSTICK ONCE A DAY OR DIRECTED; Duration: 30 DAYS DX : E11.65 12/18/2018 Active Aspirin 81 MG 1 cap(s) orally ever y 4 hours Active GLUCOMETER DIRECTED TEST QD Active Mupirocin 2 % 1 application Externally Twice a day 09/25/2024 Active Bactrim DS 800-160 MG 1 tablet Orally tw ice a day 09/25/2024 Active Cefdinir 300 MG as directed Orally Active Social History Tobacco Use: Social History Observation Description Date Details (start date - stop date) Former Smoker NA - 05/09/2020 CURRENT TOBACCO USE: Question Answer Notes Are you a: former smoker When did you stop smoking? 05/09/2020 Vital Signs Weight 259 lbs 09/28/2024 Blood pressure systolic 116 mm Hg 09/29/19 25 Blood pressure diastolic 78 mm Hg 025 Heart Rate 88 /min 09/28/2024 Height 70.50 in 09/28/2024 BMI 36.63 kg/m2 09/28/2024 Encounters Encounter Location Date Provider Diagnosis [facility] [address] [facility] [address] [id number] 09/28/2024 [place] Cellulitis of forehe ad L03.211 and Open wound of forehead, initial encounter S01.80XA Assessments Encounter Date Diagnosis (ICD Code) Assessment Notes Treatment Notes Treatment Clinical Notes Section Notes 09/28/2024 Cellulitis of forehead (ICD-10 - L03.211) 09/28/2024 Open wound of forehead, initial encounter (ICD-10 - S01.80XA) Plan Of Treatment Medication Medication Name Sig Start Date Stop Date Notes Mupirocin 2 % 1 application Externally Twice a day 025 Bactrim DS 800-160 MG 1 tablet Orally twice a day 09/26/19 25 Cefdinir 300 MG as directed Orally Next Appt Details Follow Up: via phone in 2 da ys, 1 Week in office, Reason: Progress Notes * Tang SHORTDOB: [birth year] (54 yo M)Acc No.[id number]:09/28/2024 Progress Notes Patient: Tang CAMACHO Provider: Angella Kohler M.D. :1970 A ge:53 Y S ex:Male Date:09/28/2024 Address: [address], [id number] Pcp:Jessica Huitron Subjective: * Chief Complaints: * 1 . [facility]/F/U ER. * HPI: H PI: 53 year old male presents with c/o Here for follow up on: 0 09/27/2024 [facility] ER visit. Pt went to er for bite on lt temporal area. Pt states face was swollen and he could not see out of lt eye. Pt rx'd Cefdinir and states swelling has improved since er d/c . * ROS: D ERMATOLOGY: no R benita. [...] . Alcohol: No. * Medications: T aking Cefdinir 300 MG Capsule as directed Orally , Taking Mounjaro 2.5 MG/0.5ML Solution Auto-injector as directed [...] tablet Orally Once a day , Taking Bactrim DS 800-160 MG Tablet 1 tablet Orally twice a day , Taking Mupirocin 2 % Ointment 1 application Externally Twice a day , Medication List reviewed and reconciled with the patient * Allergies: P enicillin. Objective: * Vitals: W t: 259, Temp: 97.7, BP: 116/78, HR: 88, Nurse: odalis, Ht: 70.50, BMI:36.63. * Examination: G eneral Examination: General Appearance: N AD. H EENT: E OM's with normal ROM. S kin: l eft rastafari with a 5 cm x 3 cm area of superficial necrotic skin, no drainage, only minimal surrounding edema and erythema, minimal edema in the left periocular area. Assessment: * Assessment: 1. C ellulitis of forehead - L03.211 (Primary) 2 . O pen wound of forehead, initial encounter - S01.80XA Plan: * Treatment: 2. O pen wound of forehead, initial encounter Continue Mupirocin Ointment, 2 %, 1 application, Externally, Twice a day. * Procedure Codes: 1 036F TOBACCO NON-USER, G8783 BP SCR PRFRM RCMDD DEFIND SCR INTVL, G8752 MOST RECENT SYSTOLIC BP < 140MM HG, G8754 MOST RECENT DIASTOLIC BP < 90MM HG * Follow Up: v ia phone in 2 days, 1 Week in office * Images: Billing Information: * Visit Code: 67851 Office Visit, Est Pt., Level 3. * Procedure Codes: 1036F TOBACCO NON-USER. G8783 BP SCR PRFRM RCMDD DEFIND SCR INTVL. G8752 MOST RECENT SYSTOLIC BP < 140MM HG. G8754 MOST RECENT DIASTOLIC BP < 90MM HG. * Electronic signature of Leny Kohler MD on 02/15/2025 at 08:31 AM EST Sign off status: Pending * Provider: Angella Kohler M.D. Date: 0 09/28/2024 Generated for Bryan herzog/Elias/Shyannesmitting on: 04/17/2024 08:31 AM EST History and Physical Notes * HPI (History of Present Illness) Category Sub-Category Detail Notes Category Not es HPI Here for follow up on: 5 [facility] ER visit. Pt went to er for bite on lt temporal area. Pt states face was swollen and he could not see out of lt eye. Pt rx'd Cefdinir and states swelling has improved since er d/c Examination Category Sub-Category Detail Notes Category Not es General Examination HEENT: EOM's with normal ROM General Appearance: NAD Skin: left rastafari with a 5 cm x 3 cm area of superficial necrotic skin, no drainage, only minimal surrounding edema and erythema, minimal edema in the left periocular area
--- OUTSIDE RECORDS SUMMARY | 2024-10-05 11:45 | XMS_ITS ---
Author Organization [facility] Address [address] [place] [phone] Care Team Providers Care Group Controller Name Role Phone Jessica Huitron Primary Care Provider [phone] Bin Kohler Unavailable [phone] Allergies Allergen (clinical drug ingredient) Drug/Non Drug Allergy documented on EMR Reaction Allergy Type Onset Date Status Penicillin Unknown Drug Allergy Active Reason For Referral Reason [facility] wound care clini c, prefers latest possible appt. Diagnosis 1 Open wound of forehe ad, subsequent encounter (S01.80XD) [facility] Referring Provider First Name Bin Referring Provider Last Name Jose F Referring Provider Speciality Family Pra ctice Referred Provider [facility] Rehab, PT and Sp eech Referred Provider Specialty Unknown General Notes Zina Blackwood 2024 10:02:39 AM > faxed to [facility] PT Referral Priority Routine REASON FOR VISIT 1 week Medications Medication SIG (Take, Route, Frequency, Duration) Notes Start Date End Date Status Nitroglycerin 0.4 mg DISSOLVE 1 TABLET UNDER THE TONGUE EVERY 5 MINUTES NEEDED FOR CHEST PAIN. DO NOT EXCEED A TOTAL OF 3 DOSES IN 15 MINUTES. IF NO RELIEF AFTER 3 DOSES CALL 911/GO TO ER; Duration: 10 Active Valtrex 1 GM 2 tab(s) orally 2 times a day x 2 doses 11/10/2019 Active Aspirin 81 MG 1 cap(s) orally ever y 4 hours Active Accu-Chek SmartView 1 TEST STRIP(S) FINGERSTICK ONCE A DAY OR DIRECTED; Duration: 30 DAYS DX : E11.65 12/18/2018 Active GLUCOMETER DIRECTED TEST QD Active Mounjaro 2.5 MG/0.5ML as directed Subcutaneous Active Lidocaine 5 % 1 to 3 patches remov e after 12 hours Externally Once a day 10/05/2024 Active Bactrim DS 800-160 MG 1 tablet Orally tw ice a day; Duration: 5 days 09/25/2024 Active Carvedilol 3.125 MG 1 tab(s) orally 2 times a day Active Medihoney Wound/Burn Dressing - as directed Externally 10/05/2024 Activ e Cefdinir 300 MG 1 capsule Orally twi ce a day; Duration: 5 days Active Fenofibrate 160 MG 1 tablet Orally Once a day; Duration: 90 days Active Mupirocin 2 % 1 application Externally Twice a day 09/25/2024 Active Clopidogrel Bisulfate 75 mg 1 tabler by mouth once; Duration: 90 days Active Lisinopril 20 MG 1 tab(s) orally at bedtime; Duration: 90 days Active Indomethacin 25 mg TAKE ONE CAPSULE BY MOUTH THREE TIMES DAILY; Duration: 90 Active Synjardy XR 12.5-1000 MG 2 tabs Orally O nce a day; Duration: 90 days Active Glimepiride 4 MG 1 tablet with breakfast or the first main meal of the day Orally Once a day; Duration: 90 days Active Lisinopril-hydroCHLOROth iazide 20-25 MG TAKE ONE TABLET BY MOUTH EVERY MORNING; Duration: 120 Active Atorvastatin Calcium 80 MG 1 tablet Orally Once a day Active Social History Tobacco Use: Social History Observation Description Date Details (start date - stop date) Former Smoker NA - 05/09/2020 CURRENT TOBACCO USE: Question Answer Notes Are you a: former smoker When did you stop smoking? 05/09/2020 Vital Signs Weight 256 lbs 10/05/2024 Blood pressure systolic 120 mm Hg 10/06/19 25 Blood pressure diastolic 62 mm Hg 025 Heart Rate 77 /min 10/05/2024 Height 70.50 in 10/05/2024 BMI 36.21 kg/m2 10/05/2024 Encounters Encounter Location Date Provider Diagnosis [facility] [address] [facility] [address] [place], [place] [phone] 10/05/2024 Bin [place] Open wound of forehe ad, subsequent encounter S01.80XD ; Cellulitis of forehead L03.211 and Low back pain, unspecified M54.50 Assessments Encounter Date Diagnosis (ICD Code) Assessment Notes Treatment Notes Treatment Clinical Notes Section Notes 10/05/2024 Open wound of forehead, subsequent encounter (ICD-10 - S01.80XD) 10/05/2024 Cellulitis of forehead (ICD-10 - L03.211) Improved 10/05/2024 Low back pain, unspecified (ICD-10 - M54.50) Plan Of Treatment Medication Medication Name Sig Start Date Stop Date Notes Lidocaine 5 % 1 to 3 patches remov e after 12 hours Externally Once a day 10/05/2024 Medihoney Wound/Burn Dressin g - as directed Externally 10/05/2024 Treatment Notes Assessment Notes Cellulitis of forehead Improved Referrals Referral Date Details 10/05/2024 10/05/2024, [facility] woun d care clinic, prefers latest possible appt., PT and Speech [facility] Rehab Next Appt Details Follow Up: via phone to repo rt progress, Reason: Progress Notes * Tang SHORTDOB: [birth year] (54 yo M)Acc No.[id number]:10/05/2024 Progress Notes Patient: Tang CAMACHO Provider: Angella Kohler M.D. :1970 A ge:53 Y S ex:Male Date:10/05/2024 Address:[place] [address], [place], [id number] Pcp:Jessica Huitron Subjective: * Chief Complaints: * 1 . 1 week. * HPI: D ermatology: 53 year old male presents with c/o bug bites P t here to f/u on lt side temporal bug bite. Pt states swelling has improved and he feels like bite is improving as well . * ROS: C ARDIOLOGY: no D izziness. [...] 02/2024. * Hospitalization/Major Diagno stic Procedure: [place] [facility] [place] w/ Metal Can Lid [...] tablet Orally Once a day , Taking Mupirocin 2 % Ointment 1 application Externally Twice a day , Taking Cefdinir 300 MG Capsule 1 capsule Orally twice a day , Taking Bactrim DS 800-160 MG Tablet 1 tablet Orally twice a day , Medication List reviewed and reconciled with the patient * Allergies: P enicillin. Objective: * Vitals: W t: 256, Temp: 97.9, BP: 120/62, HR: 77, Nurse: jhoan/odalis, Ht: 70.50, BMI:36.21. * Examination: G eneral Examination: General Appearance: N AD. S kin: w ound on left lateral forehead is only slightly smaller, still with central necrotic tissue, the surrounding skin erythema and edema has receded. Assessment: * Assessment: 1. O pen wound of forehead, subsequent encounter - S01.80XD (Primary) 2 . C ellulitis of forehead - L03.211 3 . L ow back pain, unspecified - M54.50 ? Plan: * Treatment: 2. C ellulitis of forehead Start Medihoney Wound/Burn Dressing Gel, -, as directed, Externally. Notes: Improved 3. L ow back pain, unspecified Start Lidocaine Patch, 5 %, 1 to 3 patches remove after 12 hours, Externally, Once a day, 30, Refills 1. * Procedure Codes: 1 036F TOBACCO NON-USER, G8783 BP SCR PRFRM RCMDD DEFIND SCR INTVL, G8752 MOST RECENT SYSTOLIC BP < 140MM HG, G8754 MOST RECENT DIASTOLIC BP < 90MM HG * Follow Up: v ia phone to report progress * Images: Billing Information: * Visit Code: 54868 Office Visit, Est Pt., Level 3. * Procedure Codes: 1036F TOBACCO NON-USER. G8783 BP SCR PRFRM RCMDD DEFIND SCR INTVL. G8752 MOST RECENT SYSTOLIC BP < 140MM HG. G8754 MOST RECENT DIASTOLIC BP < 90MM HG. * Electronic signature of Leny Kohler MD on 02/15/2025 at 08:31 AM EST Sign off status: Pending * Provider: Angella Kohler M.D. Date: 0 10/05/2024 Generated for Bryan herzog/Elias/eTransmitting on: 1 04/17/2024 08:31 AM EST History and Physical Notes * HPI (History of Present Illness) Category Sub-Category Detail Notes Category Not es Dermatology bug bites Pt here to f/u o n lt side temporal bug bite. Pt states swelling has improved and he feels like bite is improving as well Examination Category Sub-Category Detail Notes Category Not es General Examination General Appearance: NAD Skin: wound on left latera l forehead is only slightly smaller, still with central necrotic tissue, the surrounding skin erythema and edema has receded Consultation Request Notes Referral Date Referring Provider Referred Provider Not es 10/05/2024 Bin Kohler [facility] Rehab, PT and Speech [facility] wound care clinic, prefers latest possible appt.
--- OUTSIDE RECORDS SUMMARY | 2024-11-10 10:30 | XMS_ITS ---
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 Cellulitis of forehead Improved Next Appt Details Follow Up: as scheduled, Mary son: Progress Notes * Tang SHORTDOB: [birth year] (54 yo M)Acc No.[id number]:11/10/2024 Progress Notes Patient: Tang CAMACHO Provider: Jessica Huitron M.D. :1970 A ge:54 Y S ex:Male Date:11/10/2024 Address:[place] [address], [place], [id number] Subjective: * Chief Complaints: * 1 . [...] 08/21/2024. * Hospitalization/Major Diagno stic Procedure: [facility] [place] Sliced Finger w/ Metal Can Lid [...] * Images: Billing Information: * Visit Code: 16373 Office Visit, Est Pt., Level 3. * Procedure Codes: 1036F TOBACCO NON-USER. G8783 BP SCR PRFRM RCMDD DEFIND SCR INTVL. 3074F SYST BP LT 130 MM HG. 3079F DIAST BP 80-89 MM HG. * Electronic signature of Jessica Huitron MD on 02/15/2025 at 08:32 AM EST Sign off status: Pending * Provider: Jessica Huitron M.D. Date: 0 11/10/2024 Generated for Bryan herzog/Elias/Taishaitting on: 04/17/2024 08:32 AM EST History and Physical Notes * Examination Category Sub-Category Detail Notes Category Not es Dermatology The wound on th e left parietal area is healing well. There is still some postinflammatory hyperpigmentation but no drainage from the wound.
--- OUTSIDE RECORDS SUMMARY | 2025-01-05 11:45 | XMS_ITS ---
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 [...] * Tang SHORTDOB: [birth year] (54 yo M)Acc No.[id number]:01/05/2025 Progress Notes Patient: Tang CAMACHO Provider: Jessica Huitron M.D. :1970 A ge:54 Y S ex:Male Date:01/05/2025 Address: [address], [place], [id number] Subjective: * Chief Complaints: * 1 . [...] methylpred acetate 1 mg, Units: 1.50 , 98212 ADMINISTRATION OF INJECTION, 1036F TOBACCO NON-USER, 3074F SYST BP LT 130 MM HG, 3079F DIAST BP 80-89 MM HG * Follow Up: v ia phone to report test results * Images: Billing Information: * Visit Code: 69852 Office Visit, Est Pt., Level 4. Modifiers: 25 * Procedure Codes: J1010 Inj, methylpred acetate 1 mg. Units: 1.50. 80046 ADMINISTRATION OF INJECTION. 1036F TOBACCO NON-USER. 3074F SYST BP LT 130 MM HG. 3079F DIAST BP 80-89 MM HG. * Electronic signature of Jessica Huitron MD on 02/15/2025 at 08:32 AM EST Sign off status: Pending * Provider: Jessica Huitron M.D. Date: 0 01/05/2025 Generated for Bryan herzog/Elias/Taishaitting on: 1 04/17/2024 08:32 AM EST History and Physical Notes * Examination Category Sub-Category Detail Notes Category Not es General Examination Or extre mities show no edema. No acute joint swelling, redness, or warmth. He has a few small varicosities but no phlebitis. No muscle tenderness.
--- OUTSIDE RECORDS SUMMARY | 2025-01-20 12:30 | XMS_ITS | Encounter Summary ---
Author Organization [place] [address] Care Team Providers Care Lumber Tying Machine Operator Name Role Phone Gerber Dave MD Primary Care Provider [phone]- [phone] Reason for Visit * Reason Comments Diabetes Encounter Details Date Type Department Care Team (Latest Contact Info) Description 01/20/2025 1:30 PM EDT [facility] [place] [address] [facility] [address] [place] [phone] Ron Celaya MD [address] [place] [address] Type 2 diabetes mellitus with hyperglycemia, without long-term current use of insulin (HCC) (Primary Dx); ASCVD (arteriosclerotic cardiovascular disease); Hypertension associated with type 2 diabetes mellitus (HCC); Hyperlipidemia associated with type 2 diabetes mellitus (HCC) Social History Tobacco Use Types Packs/Day Years [...] on file documented as of this encounter Last Filed Vital Signs Vital Sign Reading Time Taken Comments Blood Pressure 122/80 01/20/2025 1:22 PM EDT Pulse 96 01/20/2025 1:22 PM EDT Temperature - - Respiratory Rate 16 01/20/2025 1:22 PM EDT Oxygen Saturation - - Inhaled Oxygen Concentration - - Weight 116.1 kg (256 lb) 01/20/2025 1:22 PM EDT Height 177.8 cm (5' 10 ) 01/20/2025 1:22 PM EDT Body Mass Index 36.73 01/20/2025 1:22 PM EDT documented in this encounter Ordered Prescriptions Prescription Sig Dispense Quantity Refills Last Filled Start Date End Date tirzepatide (MOUNJARO) 12.5 mg/0.5 mL SubQ Pen Injector Inject 12.5 mg under the skin once a week. 2 mL 11 01/20/2025 documented in this encounter Progress Notes * Ron Celaya MD - 01/20/2025 1:30 PM EDT Subjective Subjective: Patient ID: Tang Corirgan is a 54 y.o. male. Chief Complaint Patient presents with Diabetes HPI: Bello returns for follow up of type 2 diabetes. He had positive Cologuard since last visit but had clear colonoscopy. He has been having leg pain symptoms and sleep disturbance. He had been very physically active with his work and even two weeks after this he was still symptomatic and saw his family doctor for treatment. He had some improvement with muscle relaxer but this made him to sleepy during the day. He did get a cortisone shot in his back during this but it did not help. PMSFH: Past Medical History: Diagnosis Date Diabetes (HCC) Heart attack (HCC) High blood pressure Sleep apnea Patients past medical, family and social histories were reviewed and updated. There were no changesexcept as noted. Review of Systems Objective Outpatient Medications Marked as Taking for the 01/20/25 encounter (Office Visit) with Ron Celaya MD Medication Sig Dispense Refill aspirin 81 mg Oral Capsule Take 81 mg by mouth daily. atorvastatin (LIPITOR) 40 mg Oral Tablet Take 40 mg by mouth nightly. at bedtime carvediloL (COREG) 3.125 mg Oral Tablet Take 3.125 mg by mouth 2 times daily. clopidogreL (PLAVIX) 75 mg Oral Tablet Take 75 mg by mouth daily. fenofibrate (LOFIBRA) 160 mg Oral Tablet Take 160 mg by mouth daily. glimepiride (AMARYL) 2 mg Oral Tablet Take 2 mg by mouth daily. indomethacin (INDOCIN) 25 mg Oral Capsule Take 25 mg by mouth 3 times daily. lisinopriL-hydrochlorothiazide (PRINZIDE;ZESTORETIC) 20-25 mg Oral Tablet Take 1 Tablet by mouth every morning. nitroGLYCERIN (NITROSTAT) 0.4 mg SL Tablet, Sublingual 0.4 mg. ranolazine (RANEXA) 500 mg Oral Tablet Sustained Release 12 hr Take 500 mg by mouth 2 times daily. SYNJARDY XR 12.5-1,000 mg Oral tablet, IR & ER, biphasic 24hr Take 2 Tablets by mouth daily. [DISCONTINUED] tirzepatide (MOUNJARO) 10 mg/0.5 mL SubQ Pen Injector Inject 10 mg under the skin once a week. 2 mL 5 valACYclovir (VALTREX) 1 gram Oral Tablet Take 500 mg by mouth as needed. Objective: DATA REVIEW: LABS Recent and historical labs reviewed in chart, results discussed with patient. DIABETES CGM Lab Results Component Value Date HGBA1C 7.2 (A) 10/12/2024 HGBA1C 8.2 (A) 07/08/2024 HGBA1C 7.9 06/04/2024 RENAL Lab Results Component Value Date CREATININE 1.1 06/04/2024 No results found for: MICROALBCR LIPIDS No components found for: LDL Lab Results Component Value Date LDLCALC 3 06/04/2024 No results found for: LDLDIRECT Lab Results Component Value Date HDL 24 (A) 06/04/2024 No results found for: TRIG Lab Results Component Value Date CHOLESTEROL 86 06/04/2024 OTHER Lab Results Component Value Date TSH 0.600 02/12/2024 FREET4 1.29 02/12/2024 No results found for: [id number] No results found for: [id number] Vitals: 01/20/25 1322 BP: 122/80 Pulse: 96 Resp: 16 Weight: 256 lb (116.1 kg) Height: 5' 10 (1.778 m) Body mass index is 36.73 kg/m??. Physical Exam Vitals and nursing note reviewed. Neck: Thyroid: No thyroid mass, thyromegaly or thyroid tenderness. Assessment and Plan: Diagnoses and all orders for this visit: Type 2 diabetes mellitus with hyperglycemia, without long-term current use of insulin (HCC) (Chronic) ASCVD (arteriosclerotic cardiovascular disease) Hypertension associated with type 2 diabetes mellitus (HCC) (Chronic) Hyperlipidemia associated with type 2 diabetes mellitus (HCC) (Chronic) Other orders - tirzepatide (MOUNJARO) 12.5 mg/0.5 mL SubQ Pen Injector; Inject 12.5 mg under the skin once a week. Dispense: 2 mL; Refill: 11 Assessment and Recommendations: Type 2 diabetes with hyperglycemia and ASCVD is not at goal with HbA1c of 8.0%. He is having no hypoglycemia or medication side effects. I reviewed his diet with him and encourage him to eliminate sugar and any junk food or processed food from diet. He does not have a high intake of these on a regular basis. I recommend increasing Mounjaro to 12.5 mg weekly. ASCVD with AMI and multiple stents has been stable since last visit. He has regular follow up with Dr. Dave. Hypercholesterolemia with history of ASCVD treated with atorvastatin 40 mg. His LDL is at goal. Wound on head healed. Hyperlipidemia treated with high potency statin. His triglycerides are high and should improve withbetter glucose control and diet. Return to office: Return in about 3 months (around 04/22/2025) for Type 2 diabetes. documented in this encounter Plan of Treatment Not on file documented as of this encounter Procedures Procedure Name Priority Date/Time Associated Diagnosis Comments SCANNED LABS 01/27/2025 11:47 AM EDT documented in this encounter Results * SCANNED LABS (01/27/2025 11:47 AM EDT) 01/27/2025 11:4 7 AM EDT us Unknown Provider HEMATOLOGY ORDERABLES Final Res ult documented in this encounter Visit Diagnoses Diagnosis Type 2 diabetes mellitus with hyperglycemia, without long-term current use of insulin (HCC)- Primary ASCVD (arteriosclerotic cardiovascular disease) Unspecified cardiovascular disease Hypertension associated with type 2 diabetes mellitus (HCC) Hyperlipidemia associated with type 2 diabetes mellitus (HCC) documented in this encounter Discontinued Medications Medication Sig Discontinue Reason Start Date End Da te tirzepatide (MOUNJARO) 10 mg/0.5 mL SubQ Pen InjectorIndications:Type 2 diabetes mellitus with hyperglycemia, without long-term current use of insulin (HCC) Inject 10 mg under the skin once a week. Dose adjustment 10/12/2024 01/20/2025 documented as of this encounter Care Teams Lumber Tying Machine Operator Relationship Specialty Start Date End Date Gerber Dave MD [address] [place], [place] [id number] PCP - General Internal Medicine-Cardiovascular Disease 05/31/22 documented as of this encounter
--- OUTSIDE RECORDS SUMMARY | 2025-02-15 08:30 | XMS_ITS | Clinical Summary ---
Author Organization [facility] Address [address] [facility] [address] [place] [address] Phone Care Team Providers Care Ticket Printer And Tagger Name Role Phone Gerber Dave MD Primary Care Provider [phone]- [phone] Allergies Active Allergy Reactions Criticality Noted Date [...] needed. Active Blood-Glucose Sensor (DEXCOM G7 SENSOR) [facility] DeviceIndications: Type 2 diabetes mellitus with hyperglycemia, without long-term current use of insulin ([facility]),ASCVD (arteriosclerotic cardiovascular disease),Hypertens ion associated with type 2 diabetes mellitus (HCC),Hyperlipidem ia associated with type 2 diabetes mellitus (HCC),Class 2 severe obesity due to excess calories with serious comorbidity and body mass index (BMI) of 38.0 to 38.9 in adult 1 Each by [facility].(Non-Drug; Combo Route) route every 10 days. 3 Each 3 07/28/19 23 Active Additional Information Patient not taking.Reason: Pt electing to not take the medication, Reported on 01/20/2025 clopidogreL (PLAVIX) 75 mg Oral Tablet Take 75 mg by mouth daily. Active nitroGLYCERIN (NITROSTAT) 0.4 mg SL Tablet, Sublingual 0.4 mg. 09/17/19 24 Active SYNJARDY XR 12.5-1,000 mg Oral tablet, IR & ER, biphasic 24hr Take 2 Tablets by mouth daily. 04/23/19 25 Active tirzepatide (MOUNJARO) 12.5 mg/0.5 mL SubQ Pen Injector Inject 12.5 mg under the skin once a week. 2 mL 11 01/21/20 25 Active tirzepatide (MOUNJARO) 10 mg/0.5 mL SubQ Pen InjectorIndication s:Type 2 diabetes mellitus with hyperglycemia, without long-term current use of insulin ([facility]) Inject 10 mg under the skin once a week. 2 mL 5 10/13/19 25 025 Discontin ued(Dose adjustmen t) Active Problems Problem Noted Date Diagnosed Date [...] Encounters Date Type Department Care Team Description 01/20/2025 1:30 PM EDT Office Visit [facility] [address] [employer] [facility] [address] [place] [phone] Ron Celaya MD Type 2 diabetes mellitus with hyperglycemia, without long-term current use of insulin (HCC) (Primary Dx); ASCVD (arteriosclerotic cardiovascular disease); Hypertension associated with type 2 diabetes mellitus (HCC); Hyperlipidemia associated with type 2 diabetes mellitus (HCC) 01/20/2025 Telephone [facility] [address] [employer] [facility] [address] [place] [phone] Ron Celaya MD Reschedule 01/08/2025 Telephone [facility] [address] [employer] [facility] [address] [place] [phone] Ron Cealya MD Medication Management from Last 3 Months Immunizations Immunization Administration [...] on file Sexual Orientation Not on file Last Filed Vital Signs Vital Sign Reading [...] Mass Index 36.73 01/20/2025 1:22 PM EDT Plan of Treatment Health Maintenance Due Date Last Done Comments Annual Wellness Exam 10/20/1971 Diabetic Eye Exam 1986 Hepatitis B Vaccine (1 of 3 - 19+ 3-dose series) 10/20/1987 Pneumococcal Vaccine 50+ (1 of 2 - PCV) 10/20/1987 Cologuard 2013 Colon Cancer Screening 2013 Colonoscopy 2013 FIT 2013 Sigmoidoscopy 2013 Virtual Colonography 2013 Zoster (1 of 2) 2018 COVID-19 Vaccine ( - season) 2024 Influenza Vaccine (#1) 2024 02/03/2016 Kidney Health: uACR 02/11/2025 02/12/2024 Hemoglobin A1c 07/08/2025 01/08/2025, 06, 07/08/2024, Additional history exists Kidney Health: eGFR 01/08/2026 01/08/2025, 01/06/2025, 06/04/2024, Additional history exists Lipids 01/08/2026 01/08/2025, 05/17, 02/12/2024 DTaP/TDaP/Td (2 - Td or Tdap) 12/09/2032 12/09/2022 Meningococcal B Vaccine Aged Out No l onger eligible based on patient's age to complete this topic Procedures Procedure Name Priority Date/Time Associated Diagnosis Comments SCANNED LABS 01/27/2025 11:47 AM EDT HEMOGLOBIN A1C Routine 01/08/2025 C-REACTIVE PROTEIN Routine 01/08/2025 MAGNESIUM LEVEL Routine 01/08/2025 LIPID PANEL REFLEX Routine 01/08/2025 COMPREHENSIVE METABOLIC PANEL Routine 01/08/2025 BASIC METABOLIC PANEL Routine 01/06/2025 ALBUMIN/CREATININE RATIO, RANDOM URINE Routine 02/12/2024 from Last 3 Months or Most Recently Relevant to Health Maintenance Results * SCANNED LABS (01/27/2025 11:47 AM EDT) 01/27/2025 11:4 7 AM EDT us Unknown Provider HEMATOLOGY ORDERABLES Final Res ult * (ABNORMAL) LIPID PANEL REFLEX (01/08/2025) Triglycerides 396 MG/DL SEP OFFICE Comment:30-150 Cholesterol 113 0 - 200 MG/DL SEP OFFICE Comment:140-200 VLDL 79 MG/DL SEP OFFICE Comment:0-40 HDL 26(A) >=40 MG/DL SEP OFFICE Comment:40-60 Chol/HDL Ratio 4.3 SEP OFFICE Comment:1-3.5 Blood VENOUS BLOOD / Unknown 01/08/2025 Historical Provider CHEMISTRY ORDERABLES Final R esult SEP OFFICE * C-REACTIVE PROTEIN (01/08/2025) C-Reactive Protein 2.2 MG/DL SEP OFFICE Blood VENOUS BLOOD / Unknown 01/08/2025 Historical Provider CHEMISTRY ORDERABLES Final R esult SEP OFFICE * MAGNESIUM LEVEL (01/08/2025) Magnesium 1.8 1.6 - 2.4 MG/DL SEP OFFICE Comment:1.6-2.3 Blood VENOUS BLOOD / Unknown 01/08/2025 Historical Provider CHEMISTRY ORDERABLES Final R esult SEP OFFICE * HEMOGLOBIN A1C (01/08/2025) Hemoglobin A1C 8.0 % SEP OFFICE Comment:4.0-6.0 Blood VENOUS BLOOD / Unknown 01/08/2025 Historical Provider CHEMISTRY ORDERABLES Final R esult SEP OFFICE * COMPREHENSIVE METABOLIC PANEL (01/08/2025) Sodium 139 137 - 147 MMOL/L SEP OFFICE Comment:136-145 Potassium 4.1 3.4 - 5.3 MMOL/L SEP OFFICE Comment:3.5-5.1 Chloride 105 99 - 108 MMOL/L SEP OFFICE Comment:98-107 Total CO2 23 22 - 29 MMOL/L SEP OFFICE Comment:22.0-30.0 Anion Gap 15.1 MMOL/L SEP OFFICE Comment:5-15 BUN 21 4 - 21 MG/DL SEP OFFICE Comment:9-20 Creatinine 1.0 0.6 - 1.3 MG/DL SEP OFFICE Comment:0.66-1.25 GFR Afr Am 94 >=60 mL/min/1.7 3 m2 SEP OFFICE Comment:>60 EGFR 77.0 ML/MIN/1.7 3M2 SEP OFFICE Comment:>60 Glucose Lvl 214 MG/DL SEP OFFICE Comment:74-100 Calcium 9.60 8.70 - 10.70 MG/DL SEP OFFICE Comment:8.4-10.2 Bilirubin,Total 0.6 MG/DL SEP OFFICE Comment:0.2-1.3 AST 25 14 - 40 IU/L SEP OFFICE Comment:17-59 ALT 24 U/L SEP OFFICE Comment:12-78 Total Protein 7.0 6.4 - 8.2 GM/DL SEP OFFICE Comment:6.3-8.2 Albumin 4.5 GM/DL SEP OFFICE Comment:3.5-5.0 Globulin 2.5 G/DL SEP OFFICE Comment:1.3-3.2 A/G Ratio 1.8 (CALC) SEP OFFICE Comment:1.1-1.8 Alk Phos 113 25 - 125 IU/L SEP OFFICE Comment:38-126 Blood VENOUS BLOOD / Unknown 01/08/2025 Historical Provider CHEMISTRY ORDERABLES Final R esult Performing Organization Address City/State/[facility] de Phone Number SEP OFFICE * (ABNORMAL) BASIC METABOLIC PANEL (01/06/2025) Sodium 137 137 - 147 MMOL/L SEP OFFICE Comment:136-145 Potassium 4.0 3.4 - 5.3 MMOL/L SEP OFFICE Comment:3.5-5.1 Chloride 105 99 - 108 MMOL/L SEP OFFICE Comment:98-107 Total CO2 20(A) 22 - 29 MMOL/L SEP OFFICE Comment:22.0-30.0 Anion Gap 16.0 MMOL/L SEP OFFICE Comment:5-15 BUN 20 4 - 21 MG/DL SEP OFFICE Comment:9-20 Creatinine 1.0 0.6 - 1.3 MG/DL SEP OFFICE Comment:0.66-1.25 GFR Afr Am 94 >=60 mL/min/1.7 3 m2 SEP OFFICE Comment:>60 EGFR 77.0 ML/MIN/1.7 3M2 SEP OFFICE Comment:>60 Glucose Lvl 211 MG/DL SEP OFFICE Comment:74-100 Calcium 9.40 8.70 - 10.70 MG/DL SEP OFFICE Comment:8.4-10.2 Blood VENOUS BLOOD / Unknown 01/06/2025 Historical Provider CHEMISTRY ORDERABLES Final R esult Performing Organization Address [facility] de Phone Number SEP OFFICE * MICROALBUMIN/CREATININE RATIO URINE (02/12/2024) Creatinine Urine 64 SEP OFFICE Albumin, Ur 10.200 <=31 MG/L SEP OFFICE Comment:0-16.7 Urine Microalb/Creat Ratio 15.9 MCG/MG CREAT. SEP OFFICE Comment:0-29 Urine URINE SPECIMEN COLLECTION / Unknown 02/12/2024 Ron Celaya MD URINE ORDERABLES Final Result Performing Organization Address [facility] de Phone Number SEP OFFICE from Last 3 Months or Most Recently Relevant to Health Maintenance Insurance [facility] CHOICE PLUS [id number] [facility] CHOICE PLUS [id number] Care Teams Ticket Printer And Tagger Relationship Specialty Start Date End Date Gerber Dave MD [address] [facility] [place] [address] PCP - General Internal Medicine-Cardiovascular Disease 05/31/22
--- OUTSIDE RECORDS SUMMARY | 2025-02-15 08:32 | XMS_ITS | Encounter Summary ---
Author Organization [place] [address] Care Team Providers Care Campaign Marketing Manager Name Role Phone Gerber Dave MD Primary Care Provider +1- [phone] Reason for Visit * Reason Onset Date Comments Medication Management 01/08/2025 Encounter Details Date Type Department Care Team (Late st Contact Info) Description 01/08/2025 Telephone [facility] [address] [phone] Ron Celaya MD [address] [place] [address] Medication Management Social History Tobacco Use Types Packs/Day Years [...] encounter Miscellaneous Notes * Telephone Encounter - Ron Celaya MD - 01/11/2025 4:50 PM EDT He has an appointment coming up. We'll review everything then and make adjustments to his treatmentplan. * Telephone Encounter - Alexia Clifford MA - 01/11/2025 3:05 PM EDT Labs printed off through [facility] and placed in office to review * Telephone Encounter - Rosalinda Rueda - 01/08/2025 5:21 PM EDT Patient said he had blood work done by his PCP, Dr. Perfecto Huitron with [facility] and wants to know if we can get his results. Dr. Huitron's phone number is [phone]. Also said Dr. Huitron told him that his A1C was 8 and wants to know [address] Dr[address] Celaya can increase his Mounjaro. Please advise patient. documented in this encounter Plan of Treatment Not on file documented as of this encounter Visit Diagnoses Not on filedocumented in this encounter Care Teams Campaign Marketing Manager Relationship Specialty Start Date End Date Gerber Dave MD [address] [place] [address] PCP - General Internal Medicine-Cardiovascular Disease 05/31/22 documented as of this encounter
--- OUTSIDE RECORDS SUMMARY | 2025-02-15 08:32 | XMS_ITS | Patient Health Record ---
Author Organization [facility] Address [address] [place] [id number] Care Team Providers Care Tip Length Checker Name Role Phone Jessica Huitron Primary Care Provider WarnockBin tran Unavailable [phone] Allergies Allergen (clinical drug ingredient) Drug/Non Drug [...] 193 Performing Lab: Notes/Report: Test performed by [employer], [employer] [facility] , [address], [place] [address] Dawood Bernabe MD, Director Dermatology CLIA: [id number] Sodium 141 135-145 mmol/L Potassium 4.1 3.5-5.3 [...] 24 Performing Lab: Notes/Report: Test performed by [employer], [address] , [place] [address] Dawood Bernabe MD, Director Dermatology CLIA: [id number] Cholesterol 86 <200 mg/dL Triglycerides 293 <150 [...] Interpretation:Normal Performing Lab: Notes/Report: Test performed by [employer], [address] , [address] , [place] [address] Dawood Bernabe MD, Director Dermatology CLIA: [id number] PSA 0.62 <4.00 ng/mL Please note this is an ultrasensitive PSA assay with a lower limit of detection of 0.014 ng/mL. This test is performed by the Sushma ECLIA methodology. Values obtained with different assay methods or kits cannot be directly compared. H-CMP Reviewed date:01/12/2025 08:40:55 AM Interpretation: Performing Lab: Notes/Report: PATIENT HAD BMP DRAWN 01/06/25, OFFICE WANTS CMP DONE NA 139 136-145 mmol/L K 4.1 3.5-5.1 mmoL/L CL 105 98-107 mmol/L CO2 23 22.0-30.0 mmol/L GAP 15.1 5-15 mEq/L BUN 21 9-20 mg/dl CREATT 1.00 0.66-1.25 mg/dl GFRAA 94 >60 ML/MIN EGFR 77 >60 ml/min GLU 214 74-100 mg/dl CA 9.6 8.4-10.2 mg/dl BILIT 0.6 0.2-1.3 mg/dl AST 25 17-59 U/L ALT 24 12-78 U/L TP 7.0 6.3-8.2 g/dl ALB 4.5 3.5-5.0 g/dl GLOB 2.5 1.3-3.2 g/dL AGRATIO 1.8 1.1-1.8 ALP 113 38-126 U/L H-Magnesium Reviewed date:01/08/2025 11:17:09 AM Interpretation:1.8 Performing Lab: Notes/Report: MG 1.8 1.6-2.3 mg/dl H-Lipid Panel Reviewed date:01/08/2025 11:17:09 AM Interpretation:LDL 30 Performing Lab: Notes/Report: Patient Fasting? Y TRIG 396 30-150 mg/dl CHOL 113 140-200 mg/dl DLDL 30.05 100-129 mg/dL VLDL 79 0-40 mg/dL HDL 26 40-60 mg/dl CHLHDL 4.3 1-3.5 H-BMP Reviewed date:01/08/2025 11:17:09 AM Interpretation:FBS 211 Performing Lab: Notes/Report: NA 137 136-145 mmol/L K 4.0 3.5-5.1 mmoL/L CL 105 98-107 mmol/L CO2 20 22.0-30.0 mmol/L GAP 16.0 5-15 mEq/L BUN 20 9-20 mg/dl CREATT 1.00 0.66-1.25 mg/dl GFRAA 94 >60 ML/MIN EGFR 77 >60 ml/min GLU 211 74-100 mg/dl CA 9.4 8.4-10.2 mg/dl H-CRP Reviewed date:01/08/2025 11:17:09 AM Interpretation:2.2 Performing Lab: Notes/Report: CRP 2.2 0-4 mg/L H-Glycohemoglobin A1C Reviewed date:01/08/2025 11:17:09 AM Interpretation:8.0% Performing Lab: Notes/Report: HGBA1C 8.0 4.0-6.0 % < 6% Non-Diabetic Level < 7% Controlled Diabetic Level > 8% Poorly Controlled Diabetic Level Cologuard Reviewed date:11/04/2024 01:07:34 PM Interpretation:Positive Performing Lab: Notes/Report: Positive H-CRP Reviewed date:01/07/2025 12:59:15 PM Interpretation: Performing Lab: Notes/Report: H-Magnesium Reviewed date:01/07/2025 12:59:02 PM Interpretation: Performing Lab: Notes/Report: H-Glycohemoglobin A1C Reviewed date:01/07/2025 12:58:51 PM Interpretation: Performing Lab: Notes/Report: H-CMP Reviewed date:01/07/2025 12:58:37 PM Interpretation: Performing Lab: Notes/Report: H-Lipid Panel Reviewed date:01/07/2025 12:58:28 PM Interpretation: Performing Lab: Notes/Report: Reason For Referral Reason [facility] wound care clini c, prefers latest possible appt. Diagnosis 1 Open wound of forehe ad, subsequent encounter (S01.80XD) Referral Organization [facility] Referring Provider First Name Bin Referring Provider Last Name Jose F Referring Provider Speciality Family Pra ctice Referred Provider [facility] Rehab, PT and Sp eech Referred Provider Specialty Unknown General Notes Zina Blackwood 2024 10:02:39 AM > faxed to [facility] PT Referral Priority Routine Medications Medication SIG (Take, Route, Frequency, Duration) Notes Start Date End Date Status Carvedilol 3.125 MG 1 tab(s) orally 2 times a day Active Mounjaro 2.5 MG/0.5ML as directed Subcutaneous Active Aspirin 81 MG 1 cap(s) orally ever y 4 hours Active Fenofibrate 160 MG 1 tablet Orally Once a day; Duration: 90 days Active tiZANidine HCl 2 MG 1 tablet at bedtime as needed Orally twice a day 01/12/2025 Active GLUCOMETER DIRECTED TEST QD Active Lidocaine 5 % 1 to 3 patches remov e after 12 hours Externally Once a day 10/05/2024 Active Glimepiride 4 MG 1 tablet with breakfast or the first main meal of the day Orally Once a day; Duration: 90 days Active Indomethacin 25 mg 1 capsule orally 3 times a day; Duration: 90 days Active Lisinopril-hydroCHLOROth iazide 20-25 MG TAKE ONE TABLET BY MOUTH EVERY MORNING; Duration: 30 Active Valtrex 1 GM 2 tab(s) orally 2 times a day x 2 doses 11/10/2019 Active Accu-Chek SmartView 1 TEST STRIP(S) FINGERSTICK ONCE A DAY OR DIRECTED; Duration: 30 DAYS DX : E11.65 12/18/2018 Active Lisinopril 20 MG 1 tablet at bedtime Orally daily; Duration: 90 days Active Amitriptyline HCl 25 MG 1 tablet at bedt matias Orally Once a day 01/05/2025 Active Atorvastatin Calcium 80 MG 1 tablet Orally Once a day Active Nitroglycerin 0.4 mg DISSOLVE 1 TABLET UNDER THE TONGUE EVERY 5 MINUTES NEEDED FOR CHEST PAIN. DO NOT EXCEED A TOTAL OF 3 DOSES IN 15 MINUTES. IF NO RELIEF AFTER 3 DOSES CALL 911/GO TO ER; Duration: 10 Active Clopidogrel Bisulfate 75 mg 1 tabler by mouth once; Duration: 90 days Active Synjardy XR 12.5-1000 MG 2 tabs Orally O nce a day; Duration: 90 days Active Immunizations Vaccine Route Administration Date Status Comme nts Fluzone Quad (6months&older) IM Intramuscular 02/03/2016 Administered Tetanus Tdap-Adacel (over 7yrs) Unknown 12/09/2022 Administered Social History Tobacco Use: Social History Observation Description Date Details (start date - stop date) Former Smoker NA - 05/09/2020 CURRENT TOBACCO USE: Question Answer Notes Are you a: former smoker When did you stop smoking? 05/09/2020 Problems Problem Type SNOMED Code ICD Code Onset Dates Problem Status W/U Status Risk Notes Problem Essential hypertension (26055121) Essential (primary) hypertension (I10) Active confirmed Problem Coronary arteriosclerosis (70647601) ASCVD (arteriosclerotic cardiovascular disease) (I25.10) Active confirmed Problem Essential hypertension (32916977) Essential hypertension (I10) Active confirmed Problem Hypertriglyceridemia (101324209) Hypertriglyceridemia (E78.1) Active confirmed Problem Lumbosacral spondylosis without myelopathy (12076698) Spondylosis of lumbar region without myelopathy or radiculopathy (M47.816) Active confirmed Problem Obstructive sleep apnea syndrome (53240952) ZIGGY (obstructive sleep apnea) (G47.33) Active confirmed Problem Obstructive sleep apnea syndrome (00466272) Sleep apnea in adult (G47.33) Active confirmed Problem STEMI - ST elevation myocardial infarction (355087958) ST elevation myocardial infarction (STEMI), unspecified artery (I21.3) Active confirmed Problem Localized, primary osteoarthritis of the pelvic region and thigh (220599160) Primary osteoarthritis of right hip (M16.11) Active confirmed Problem Dyslipidemia (673110383) Dyslipidemia (E78.5) Active confirmed Problem Type II diabetes mellitus without complication (183330986) Type 2 diabetes mellitus without complication, without long-term current use of insulin (E11.9) Active confirmed Problem Tobacco use (067692947) Tobacco use disorder (F17.200) Active confirmed Problem Hyperglycemia due to type 2 diabetes mellitus (156281846683937) Uncontrolled type 2 diabetes mellitus with hyperglycemia (E11.65) Active confirmed Vital Signs Heart Rate 82 /min 01/05/2025 Blood pressure diastolic 80 mm Hg 01/05/2025 Height 70.50 in 01/05/2025 Blood pressure systolic 124 mm Hg 01/05/2025 Weight 264 lbs 01/05/2025 BMI 37.34 kg/m2 01/05/2025 Encounters Encounter Location Date Provider Diagnosis [place] [address] [place] [id number] 05/26/2024 R Perfecto Tomy Dyslipidemia E78.5 ; Type 2 diabetes mellitus without complication, without long-term current use of insulin E11.9 ; Screening for prostate cancer Z12.5 ; Essential hypertension I10 ; ASCVD (arteriosclerotic cardiovascular disease) I25.10 ; Primary osteoarthritis of right hip M16.11 and ZIGGY (obstructive sleep apnea) G47.33 [facility] [address] [facility] [address] [place] [id number] 09/25/2024 Bin Warnock Cellulitis of forehe ad L03.211 [facility] [address] [place] [id number] 09/28/2024 Bin Warnock Cellulitis of forehe ad L03.211 and Open wound of forehead, initial encounter S01.80XA [facility] [address] [place] [id number] 10/05/2024 Bin Warnock Open wound of forehe ad, subsequent encounter S01.80XD ; Cellulitis of forehead L03.211 and Low back pain, unspecified M54.50 [facility] 0 [facility] [address] [place] [id number] 11/10/2024 R Perfecto Tomy Open wound of forehe ad, subsequent encounter S01.80XD ; Positive colorectal cancer screening using Cologuard test R19.5 and Cellulitis of forehead L03.211 [place] [address] [facility] [address] [place] [id number] 01/05/2025 R Perfecto Tomy Leg pain M79.606 [facility] [address] [place] [id number] 06/04/2024 R Perfecto Tomy Type 2 diabetes ana maria itus without complication, without long-term current use of insulin E11.9 [facility] [address] [facility] [address] [place] [id number] 09/24/2024 R Perfecto Tomy Type 2 diabetes ana maria itus without complication, without long-term current use of insulin E11.9 and Dyslipidemia E78.5 [facility] [address] [place], [place] [id number] 10/02/2024 Bin Warnock Cellulitis of forehe ad L03.211 [facility] [address] [place], [place] [id number] 10/06/2024 R Perfecto Tomy [facility] [address] [place], [place] [id number] 10/06/2024 R Perfecto Tomy Screening for colon cancer Z12.11 [facility] [address] [place], [place] [id number] 10/26/2024 R Perfecto Tomy Screening for colon cancer Z12.11 [facility] [address] [place], [place] [id number] 11/11/2024 R Perfecto Tomy [facility] [address] [place], [place] [id number] 12/23/2024 R Perfecto Tomy [facility] [address] [place], [place] [id number] 01/06/2025 R Perfecto Tomy [facility] [address] [place] [id number] 01/07/2025 R Perfecto Tomy [facility] [address] [place] [id number] 01/08/2025 R Perfecto Tomy [facility] [address] [place] [id number] 01/12/2025 R Perfecto Tomy Assessments Encounter Date Diagnosis (ICD Code) Assessment Notes Treatment Notes Treatment Clinical Notes Section Notes 05/26/2024 Dyslipidemia (ICD-10 - E78.5) 05/26/2024 Type 2 diabetes mellitus without complication, without long-term current use of insulin (ICD-10 - E11.9) 06/04/2024 Type 2 diabetes mellitus without complication, without long-term current use of insulin (ICD-10 - E11.9) 09/24/2024 Type 2 diabetes mellitus without complication, without long-term current use of insulin (ICD-10 - E11.9) 09/25/2024 Cellulitis of forehead (ICD-10 - L03.211) 09/28/2024 Open wound of forehead, initial encounter (ICD-10 - S01.80XA) 09/28/2024 Cellulitis of forehead (ICD-10 - L03.211) 10/05/2024 Open wound of forehead, subsequent encounter (ICD-10 - S01.80XD) 10/05/2024 Cellulitis of forehead (ICD-10 - L03.211) Improved 10/26/2024 Screening for colon cancer (ICD-10 - Z12.11) 11/10/2024 Open wound of forehead, subsequent encounter (ICD-10 - S01.80XD) 11/10/2024 Positive colorectal cancer screening using Cologuard test (ICD-10 - R19.5) He is agreeable to colonoscopy 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 01/05/2025 Leg pain (ICD-10 - M79.606) 10/06/2024 Screening for colon cancer (ICD-10 - Z12.11) 10/02/2024 Cellulitis of forehead (ICD-10 - L03.211) 11/10/2024 Cellulitis of forehead (ICD-10 - L03.211) Improved 10/05/2024 Low back pain, unspecified (ICD-10 - M54.50) 09/24/2024 Dyslipidemia (ICD-10 - E78.5) 05/26/2024 Screening for prostate cancer (ICD-10 - Z12.5) 05/26/2024 Essential hypertension (ICD-10 - I10) 05/26/2024 ASCVD (arteriosclerotic cardiovascular disease) (ICD-10 - I25.10) 05/26/2024 Primary osteoarthritis of right hip (ICD-10 - M16.11) 05/26/2024 ZIGGY (obstructive sleep apnea) (ICD-10 - G47.33) Plan Of Treatment Pending Test Test Name Order Date colonoscopy 10/26/2024 Insurance Providers Payer Name Payer Address Payer Phone Subscriber Number Group Number Insured Name Patient Relationship to Insured Coverage Start Date Coverage End Date [facility] [address] [place] [address] [phone] [id number] Tang SHORT Self - patient is the insured Medications Administered Medication Instructions Date of Administration Dosage Notes Depo- Medrol 40 mg/ml 12/15/2015 2 mL Depo- Medrol 40 mg/ml 06/05/2018 1.5 mL Depo- Medrol 40 mg/ml 11/21/2018 1.5 mL Depo- Medrol 40 mg/ml 01/05/2025 1.5 mL Dexamethasone 02/17/2018 1 mL Medical (General) History Medical History History ICD Code Hypertension Type 2 DM - diagnosed 04/2017 - followed by Dr. Celaya Chronic neck pain ASCVD - s/p NSTEMI Hyperlipidemia Severe DJD right hip - 03/2024 ZIGGY Surgical History Surgery Date(Month/Year) full mouth extraction Cardiac Stent 3x - Dr. Dave 01/2023 Coronary stent x 2 - Tenzin 02/2024 Coronary stent x 2 - Tenzin 08/21/2024 Hospitalization History Reason Date(Month/Year) [facility] - Sliced Finger w/ Metal Can Lid 11/2022
--- OUTSIDE RECORDS SUMMARY | 2025-02-15 08:32 | XMS_ITS | Encounter Summary ---
Author Organization [place] [address] Care Team Providers Care Hat Lacer Name Role Phone Gerber Dave MD Primary Care Provider [phone] Reason for Visit * Reason Onset Date Comments Reschedule 01/20/2025 Encounter Details Date Type Department Care Team (Late st Contact Info) Description [facility] [address] [facility] [address] [place] [id number] Ron Celaya MD [address] [place] [address] Reschedule Social History Tobacco Use Types Packs/Day Years [...] encounter Miscellaneous Notes * Telephone Encounter - Martha Muñiz MA - 01/20/2025 1:56 PM EDT Noted. * Telephone Encounter - JonoAnnemarie - 01/20/2025 12:45 PM EDT pt rs 01/20 appt from 3pm to 1:30pm due to living out of town and working in [place] and pt Is getting out of work early and asked for sooner appt. documented in this encounter Plan of Treatment Not on file documented as of this encounter Visit Diagnoses Not on filedocumented in this encounter Care Teams Hat Lacer Relationship Specialty Start Date End Date Gerber Dave MD [address] [place] [address] PCP - General Internal Medicine-Cardiovascular Disease 05/31/22 documented as of this encounter
[2025-02-15 09:03] LABS: Hematocrit 45.3 % (42.0-52.0); Hemoglobin 14.8 g/dL (14.1-18.0); Immature Granulocytes % 0.7 %; Mean Corpuscular HGB Conc 32.7 g/dL (31.8-35.4); Mean Corpuscular Hemoglobin 27.7 pg (27.0-31.2); Mean Corpuscular Volume 84.7 fl (80-94); Nucleated Red Blood Cells % 0 %; Platelet Count 246 K/mm3 (142-424); Red Blood Count 5.35 M/mm3 (4.60-6.20); Red Cell Distribution Width-SD 43.8 fL; White Blood Count 8.8 K/mm3 (4.8-10.8)
[2025-02-15 09:47] LABS: Anion Gap 13.2 mEq/L (5-15); Blood Urea Nitrogen 15 mg/dl (9-20); Calcium 9.3 mg/dl (8.4-10.2); Carbon Dioxide 24 mmol/L (22.0-30.0); Chloride 104 mmol/L (98-107); Creatinine,Serum 1.00 mg/dl (0.66-1.25); Estimated Glomerular Filt Rate 77 ml/min (>60); GFR (African American) 94 ML/MIN (>60); Glucose 137 mg/dl (74-100); Potassium 4.2 mmoL/L (3.5-5.1); Sodium 137 mmol/L (136-145)
== END 2025-02-15 23:59 | disposition home or self-care (01) ==
LOC: LAB 08:24
PROVIDERS: PCP Family Medicine; Visit Provider Internal Medicine
DX: I25.10 Atherosclerotic heart disease of native coronary artery without angina pectoris (principal); I10 Essential (primary) hypertension
CPT/HCPCS: 36415; 80048; 85025

== ENCOUNTER 2025-02-22 07:52 | Outpatient (CLI) | payer OTHER, SELFPAY ==
--- OUTSIDE RECORDS SUMMARY | 2023-08-27 11:30 | XMS_ITS ---
Author Organization [facility] Address [address] [place] [phone] Care Team Providers Care Hand Molder And Caster Name Role Phone Jessica Huitron Primary Care [...] osteoarthritis of the pelvic region and thigh (275743962) Primary osteoarthritis of right hip (M16.11) Active confirmed Vital Signs Weight 272.8 lbs 08/27/2023 Blood pressure systolic 114 mm Hg 08/27/19 24 Blood pressure diastolic 74 mm Hg 024 Heart Rate 79 /min 08/27/2023 Height 70.50 in 08/27/2023 BMI 38.59 kg/m2 08/27/2023 Encounters Encounter Location Date Provider [facility] [address] [place] [phone] 08/27/2023 Jessica Huitron Type 2 diabetes ana [...] * Tang SHORTDOB: [birth year] (54 yo M)Acc No.[id number]:08/27/2023 Progress Notes Patient: Tang CAMACHO Provider: Jessica Huitron M.D. :1970 A ge:52 Y S ex:Male Date:08/27/2023 Address:[place] [address], [id number] Subjective: * Chief Complaints: * 1 . [...] also continues to follow with cardiology (Dr. Daev) with no change in his regimen. Cardiology [...] * Images: Billing Information: * Visit Code: 66370 Office Visit, Est Pt., Level 3. * Procedure Codes: * Electronic signature of Jessica Huitron MD on 02/22/2025 at 07:55 AM EST Sign off status: Pending * Provider: Jessica Huitron M.D. Date: 0 08/27/2023 Generated for Bryan herzog/Elias/Dee on: 04/24/2024 07:55 AM EST History and Physical Notes * Examination Category Sub-Category Detail Notes Category Not es Cardiology Lungs: clear, no rales or wheezes HEENT: unremarkable Heart sounds: RRR, normal S1, S2 Abdomen: positive BS, soft, n ontender Carotid upstroke: normal, no bruits Extremities: no leg edema Murmur, click , gallop: none General Appearance: pleasant, NAD.
--- OUTSIDE RECORDS SUMMARY | 2024-05-26 04:00 | XMS_ITS ---
Author Organization [facility] Address [address] [place] [phone] Care Team Providers Care Finance Business Manager Name Role Phone Jessica Huitron Primary Care [...] 09:44:26 AM Interpretation:gluc 193 Performing Lab: Notes/Report: Test performed by [facility], [facility] [address] [place] [address] , [address], [place] [address] Dawood Bernabe MD, [employer] CLIA: [id number] Sodium 141 135-145 mmol/L Potassium 4.1 3.5-5.3 [...] 24 Performing Lab: Notes/Report: Test performed by [facility], [address] , [address], [place] [address] Dawood Bernabe MD, [employer] CLIA: [id number] Cholesterol 86 <200 mg/dL Triglycerides 293 <150 [...] Interpretation:Normal Performing Lab: Notes/Report: Test performed by [facility], [address] , [address], [place] [address] Dawood Bernabe MD, [employer] CLIA: [id number] PSA 0.62 <4.00 ng/mL Please note this [...] 05/26/2024 Encounters Encounter Location Date Provider Diagnosis [facility] [address] [facility] [address] [place], [place] [phone] 05/26/2024 R Perfecto Tomy Dyslipidemia E78.5 ; [...] * Tang SHORTDOB: [birth year] (54 yo M)Acc No.[id number]:05/26/2024 Progress Notes Patient: Tang CAMACHO Provider: Jessica Huitron M.D. :1970 A ge:53 Y S ex:Male Date:05/26/2024 Address:[facility] [address], [place], [id number] Subjective: * Chief Complaints: * 1 . [...] Hinojosa 05/26/2024 9:48: 36 AM > Jessica Huitron 06/04/2024 9:44:15 AM >See phone encounter 3.?Screening [...] * Procedure Codes: 9 [address] [place], [address] GLYCATED HEMOGLOBIN TEST, Modifiers: QW , 3051F HG A1C>EQUAL 7.0%<8.0%, 3074F SYST BP LT 130 MM HG, 3078F DIAST BP < 80 MM HG * Follow Up: 6 Months * Images: Billing Information: * Visit Code: 31509 Office Visit, Est Pt., Level 4. * Procedure Codes: [address] [place]. [address] GLYCATED HEMOGLOBIN TEST. Modifiers: QW 3051F HG A1C>EQUAL 7.0%<8.0%. 3074F SYST BP LT 130 MM HG. 3078F DIAST BP < 80 MM HG. * Electronic signature of Jessica Huitron MD on 02/22/2025 at 07:54 AM EST Sign off status: Pending * Provider: Jessica Huitron M.D. Date: 0 05/26/2024 Generated for Bryan herzog/Elias/eTransmitting on: 1 04/24/2024 07:54 AM EST History and Physical Notes * [...]
--- OUTSIDE RECORDS SUMMARY | 2024-09-25 10:45 | XMS_ITS ---
Author Organization [facility] Address [address] [place] [id number] Care Team Providers Care Poiser Name Role Phone Jessica Huitron Primary Care Provider [phone] Bin Kohler Unavailable [phone] Allergies Allergen (clinical drug ingredient) Drug/Non Drug Allergy documented on EMR Reaction Allergy Type Onset Date Status Penicillin Unknown Drug Allergy Active REASON FOR VISIT bite on face Medications Medication SIG (Take, Route, Frequency, Duration) Notes Start Date End Date Status Fenofibrate 160 MG 1 tablet Orally Once a day; Duration: 90 days Active Lisinopril 20 MG 1 tab(s) orally at bedtime; Duration: 90 days Active Mupirocin 2 % 1 application Externally Twice a day 09/25/2024 Active Bactrim DS 800-160 MG 1 tablet Orally tw ice a day; Duration: 7 days 09/25/2024 Active Clopidogrel Bisulfate 75 mg 1 tabler by mouth once; Duration: 90 days Active Lisinopril-hydroCHLOROth iazide 20-25 MG TAKE ONE TABLET BY MOUTH EVERY MORNING; Duration: 120 Active Synjardy XR 12.5-1000 MG 2 tabs Orally O nce a day; Duration: 90 days Active Indomethacin 25 mg TAKE ONE CAPSULE BY MOUTH THREE TIMES DAILY; Duration: 90 Active Valtrex 1 GM 2 tab(s) orally 2 times a day x 2 doses 11/10/2019 Active Accu-Chek SmartView 1 TEST STRIP(S) FINGERSTICK ONCE A DAY OR DIRECTED; Duration: 30 DAYS DX : E11.65 12/18/2018 Active Glimepiride 4 MG 1 tablet with breakfast or the first main meal of the day Orally Once a day; Duration: 90 days Active Atorvastatin Calcium 80 MG 1 tablet Orally Once a day Active Nitroglycerin 0.4 mg DISSOLVE 1 TABLET UNDER THE TONGUE EVERY 5 MINUTES NEEDED FOR CHEST PAIN. DO NOT EXCEED A TOTAL OF 3 DOSES IN 15 MINUTES. IF NO RELIEF AFTER 3 DOSES CALL 911/GO TO ER; Duration: 10 Active Aspirin 81 MG 1 cap(s) orally ever y 4 hours Active GLUCOMETER DIRECTED TEST QD Active Carvedilol 3.125 MG 1 tab(s) orally 2 times a day Active Mounjaro 2.5 MG/0.5ML as directed Subcutaneous Active Social History Tobacco Use: Social History Observation Description Date Details (start date - stop date) Former Smoker NA - 05/09/2020 CURRENT TOBACCO USE: Question Answer Notes Are you a: former smoker When did you stop smoking? 05/09/2020 Vital Signs Weight 260.6 lbs 09/25/2024 Blood pressure systolic 112 mm Hg 09/26/19 25 Blood pressure diastolic 72 mm Hg 025 Heart Rate 88 /min 09/25/2024 Height 70.50 in 09/25/2024 BMI 36.86 kg/m2 09/25/2024 Encounters Encounter Location Date Provider Diagnosis [facility] [address] [facility] [address] [place] [id number] 09/25/2024 Bin Kohler Cellulitis of forehe ad L03.211 Assessments Encounter Date Diagnosis (ICD Code) Assessment Notes Treatment Notes Treatment Clinical Notes Section Notes 09/25/2024 Cellulitis of forehead (ICD-10 - L03.211) Plan Of Treatment Medication Medication Name Sig Start Date Stop Date Notes Mupirocin 2 % 1 application Externally Twice a day 025 Bactrim DS 800-160 MG 1 tablet Orally tw ice a day; Duration: 7 days 09/25/2024 Next Appt Details Follow Up: via phone to o rt progress, Reason: Progress Notes * Tang SHORTDOB: [birth year] (54 yo M)Acc No.[id number]:09/25/2024 Progress Notes Patient: Tang CAMACHO Provider: Angelal Kohler M.D. :1970 A ge:53 Y S ex:Male Date:09/25/2024 Address: [address] [id number] Pcp:Jessica Huitron Subjective: * Chief Complaints: * 1 . Bite on face. * HPI: D ermatology: 53 year old male presents with c/o bug bites P t complains of possible bug bites on lt temporal area of face. Pt states he is not sure what bit him but on Saturday he felt something on his face and swatted it away. Pt states that area is tender and bites do have redness around them. * ROS: C ARDIOLOGY: no D izziness. n o C hest pain. G ASTROENTEROLOGY: no N ausea. n o V omiting. U ROLOGY: no D ifficulty urinating. n o B lood in urine. * Medical History: H ypertension, Type 2 DM - diagnosed 04/2017 - followed by Dr. 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 * Surgical History: f ull mouth extraction , Cardiac Stent 3x - Dr. Dave 01/2023, Coronary stent x 2 - Tenzin 02/2024. * Hospitalization/Major Diagno stic Procedure: H UT - Sliced Finger w/ Metal Can Lid [...] . Alcohol: No. * Medications: T aking Mounjaro 2.5 MG/0.5ML Solution Auto-injector as directed Subcutaneous , Taking Carvedilol 3.125 MG Tablet 1 tab(s) orally 2 times a day , Taking GLUCOMETER DIRECTED TEST QD , Taking Aspirin 81 MG Capsule 1 cap(s) orally every 4 hours , Taking Accu-Chek SmartView TEST STRIPS 1 TEST STRIP(S) FINGERSTICK ONCE A DAY OR DIRECTED , Notes to Pharmacist: DX : E11.65, Taking Valtrex 1 GM Tablet 2 tab(s) orally 2 times a day x 2 doses , Taking Nitroglycerin 0.4 mg Tablet Sublingual DISSOLVE 1 TABLET UNDER THE TONGUE EVERY 5 MINUTES NEEDED FOR CHEST PAIN. DO NOT EXCEED A TOTAL OF 3 DOSES IN 15 MINUTES. IF NO RELIEF AFTER 3 DOSES CALL 911/GO TO ER , Taking Atorvastatin Calcium 80 MG Tablet 1 tablet Orally Once a day , Taking Glimepiride 4 MG Tablet 1 tablet with breakfast or the first main meal of the day Orally Once a day , Taking Lisinopril-hydroCHLOROthiazide 20-25 MG Tablet TAKE ONE TABLET BY MOUTH EVERY MORNING , Taking Indomethacin 25 mg Capsule TAKE ONE CAPSULE BY MOUTH THREE TIMES DAILY , Taking Synjardy XR 12.5-1000 MG Tablet Extended Release 24 Hour 2 tabs Orally Once a day , Taking Clopidogrel Bisulfate 75 mg Tablet 1 tabler by mouth once , Taking Lisinopril 20 MG Tablet 1 tab(s) orally at bedtime , Taking Fenofibrate 160 MG Tablet 1 tablet Orally Once a day , Discontinued Ozempic (2 MG/DOSE) 8 MG/3ML Solution Pen-injector INJECT 2 MG SUBCUTANEOUSLY ONCE A WEEK , Discontinued Ranolazine ER 500 MG Tablet Extended Release 12 Hour 1 tablet Orally Twice a day , Medication List reviewed and reconciled with the patient * Allergies: P enicillin. Objective: * Vitals: W t: 260.6, Temp: 97.8, BP: 112/72, HR: 88, Nurse: odalis, Ht: 70.50, BMI:36.86. * Examination: G eneral Examination: General Appearance: N AD. S kin: l eft lateral forehead with two small, round skin wounds with some dull surrounding skin erythema, no induration or drainage from skin wounds. Assessment: * Assessment: 1. Issa hawkins of forehead - L03.211 (Primary) Plan: * Treatment: * Procedure Codes: 1 036F TOBACCO NON-USER, G8783 BP SCR PRFRM RCMDD DEFIND SCR INTVL, G8752 MOST RECENT SYSTOLIC BP < 140MM HG, G8754 MOST RECENT DIASTOLIC BP < 90MM HG * Follow Up: v ia phone to report progress * Images: Billing Information: * Visit Code: 39308 Office Visit, Est Pt., Level 3. * Procedure Codes: 1036F TOBACCO NON-USER. G8783 BP SCR PRFRM RCMDD DEFIND SCR INTVL. G8752 MOST RECENT SYSTOLIC BP < 140MM HG. G8754 MOST RECENT DIASTOLIC BP < 90MM HG. * Electronic signature of Leny Kohler MD on 02/22/2025 at 07:54 AM EST Sign off status: Pending * Provider: Angella Kohler M.D. Date: 0 09/25/2024 Generated for Bryan herzog/Elias/Taishaitting on: 1 04/24/2024 07:54 AM EST History and Physical Notes * HPI (History of Present Illness) Category Sub-Category Detail Notes Category Not es Dermatology bug bites Pt complains of possible bug bites on lt temporal area of face. Pt states he is not sure what bit him but on Saturday he felt something on his face and swatted it away. Pt states that area is tender and bites do have redness around them Examination Category Sub-Category Detail Notes Category Not es General Examination General Appearance: NAD Skin: left lateral forehea d with two small, round skin wounds with some dull surrounding skin erythema, no induration or drainage from skin wounds
--- OUTSIDE RECORDS SUMMARY | 2024-09-28 10:00 | XMS_ITS ---
Author Organization [facility] Address [address] [place] [id number] Care Team Providers Care Veterans Service Officer Name Role Phone Jessica Huitron Primary Care Provider [phone] Bin Kohler Unavailable [phone] Allergies Allergen (clinical drug ingredient) Drug/Non Drug Allergy documented on EMR Reaction Allergy Type Onset Date Status Penicillin Unknown Drug Allergy Active REASON FOR VISIT [facility]/F/U ER Medications Medication SIG (Take, Route, Frequency, [...] 09/28/2024 Encounters Encounter Location Date Provider Diagnosis [facility] [address] [id number] 09/28/2024 Bin [place] Cellulitis of forehe ad L03.211 and Open [...] * Tang SHORTDOB: [birth year] (54 yo M)Acc No.[id number]:09/28/2024 Progress Notes Patient: Tang CAMACHO Provider: Angella Kohler M.D. :1970 A ge:53 Y S ex:Male Date:09/28/2024 Address: [address], [id number] Pcp:Jessica Huitron Subjective: * Chief Complaints: * 1 . [facility]/F/U ER. * HPI: H PI: 53 year old male presents with c/o Here for follow up on: 0 09/27/2024 [facility] ER visit. Pt went to er for [...] with normal ROM. S kin: l eft bahai with a 5 cm x 3 cm [...] * Images: Billing Information: * Visit Code: 85531 Office Visit, Est Pt., Level 3. * Procedure Codes: 1036F TOBACCO NON-USER. G8783 BP SCR PRFRM RCMDD DEFIND SCR INTVL. G8752 MOST RECENT SYSTOLIC BP < 140MM HG. G8754 MOST RECENT DIASTOLIC BP < 90MM HG. * Electronic signature of Leny Kohler MD on 02/22/2025 at 07:55 AM EST Sign off status: Pending * Provider: Angella Kohler M.D. Date: 0 09/28/2024 Generated for Bryan herzog/Elias/Shyannesmitting on: 1 04/24/2024 07:55 AM EST History and Physical Notes * HPI (History of Present Illness) Category Sub-Category Detail Notes Category Not es HPI Here for follow up on: 5 [facility] ER visit. Pt went to er for bite on lt temporal area. Pt states face was swollen and he could not see out of lt eye. Pt rx'd Cefdinir and states swelling has improved since er d/c Examination Category Sub-Category Detail Notes Category Not es General Examination HEENT: EOM's with normal ROM General Appearance: NAD Skin: left bahai with a 5 cm x 3 cm area of superficial necrotic skin, no drainage, only minimal surrounding edema and erythema, minimal edema in the left periocular area
--- OUTSIDE RECORDS SUMMARY | 2024-10-05 11:45 | XMS_ITS ---
Author Organization [facility] Address [address] [place] [phone] Care Team Providers Care Supply Clerk Name Role Phone Jessica Huitron Primary Care Provider Bin Kohler Unavailable [phone] Allergies Allergen (clinical drug ingredient) Drug/Non Drug Allergy documented on EMR Reaction Allergy Type Onset Date Status Penicillin Unknown Drug Allergy Active Reason For Referral Reason [facility] wound care clini c, prefers latest possible appt. Diagnosis 1 Open wound of forehe ad, subsequent encounter (S01.80XD) Referral [facility] Referring Provider First Name Bin Referring Provider Last Name Jose F Referring Provider Speciality Family Pra ctice Referred Provider [facility] Rehab, PT and Sp eech Referred Provider Specialty Unknown General Notes Zina Blackwood 2024 10:02:39 AM > faxed to [facility] PT Referral Priority Routine REASON [...] 10/05/2024 Encounters Encounter Location Date Provider Diagnosis [facility] [address] [facility] [address] [place], [place] [phone] 10/05/2024 Bin [place] Open wound of forehe ad, subsequent encounter [...] Improved Referrals Referral Date Details 10/05/2024 10/05/2024, [facility] woun d care clinic, prefers latest possible appt., PT and Speech [facility] Rehab Next Appt Details Follow Up: via phone to repo rt progress, Reason: Progress Notes * Tang SHORTDOB: [birth year] (54 yo M)Acc No.[id number]:10/05/2024 Progress Notes Patient: Tang CAMACHO Provider: Angella Kohler M.D. :1970 A ge:53 Y S ex:Male Date:10/05/2024 Address:[place] [address], [place], [id number] Pcp:Jessica Huitron Subjective: * Chief Complaints: * [...] 02/2024. * Hospitalization/Major Diagno stic Procedure: H [facility] [place] - Sliced Finger w/ Metal Can Lid [...] * Images: Billing Information: * Visit Code: 56128 Office Visit, Est Pt., Level 3. * [...] 10/05/2024 Generated for Bryan herzog/Elias/eTransmitting on: 1 04/24/2024 [...] Referred Provider Not es 10/05/2024 Bin Kohler [facility] Rehab, PT and Speech [facility] wound care clinic, prefers latest possible appt.
--- OUTSIDE RECORDS SUMMARY | 2024-11-10 10:30 | XMS_ITS ---
Author Organization [facility] Address [address] [place] [phone] Care Team Providers Care On Air Host Name Role Phone Jessica Huitron Primary Care Provider Allergies Allergen (clinical drug ingredient) Drug/Non Drug Allergy documented on EMR Reaction Allergy Type Onset Date Status Penicillin Unknown Drug Allergy Active REASON FOR VISIT positive Cologuard Medications Medication SIG (Take, Route, Frequency, Duration) Notes Start Date End Date Status Cefdinir 300 MG 1 capsule Orally twi ce a day; Duration: 5 days Active Lisinopril-hydroCHLOROth iazide 20-25 MG TAKE ONE TABLET BY MOUTH EVERY MORNING; Duration: 30 Active Bactrim DS 800-160 MG 1 tablet Orally tw ice a day; Duration: 5 days 09/25/2024 [facility] - as directed Externally 10/05/2024 Activ e Lidocaine 5 % 1 to 3 patches remov e after 12 hours Externally Once a day 10/05/2024 Active Fenofibrate 160 MG 1 tablet Orally Once a day; Duration: 90 days Active Clopidogrel Bisulfate 75 mg 1 tabler by mouth once; Duration: 90 days Active Mupirocin 2 % 1 application Externally Twice a day 09/25/2024 Active Synjardy XR 12.5-1000 MG 2 tabs Orally O nce a day; Duration: 90 days Active Indomethacin 25 mg TAKE ONE CAPSULE BY MOUTH THREE TIMES DAILY; Duration: 90 Active Glimepiride 4 MG 1 tablet with [...] 30 DAYS DX : E11.65 12/18/2018 Active Carvedilol 3.125 MG 1 tab(s) orally 2 times a day Active Mounjaro 2.5 MG/0.5ML as directed Subcutaneous Active Aspirin 81 MG 1 cap(s) orally ever y 4 hours Active GLUCOMETER DIRECTED TEST QD Active Social History Tobacco Use: Social History Observation Description Date Details (start date - stop date) Former Smoker NA - 05/09/2020 CURRENT TOBACCO USE: Question Answer Notes Are you a: former smoker When did you stop smoking? 05/09/2020 Vital Signs Weight 264 lbs 11/10/2024 Blood pressure systolic 120 mm Hg 11/11/19 25 Blood pressure diastolic 80 mm Hg 025 Heart Rate 77 /min 11/10/2024 Height 70.50 in 11/10/2024 BMI 37.34 kg/m2 11/10/2024 Encounters Encounter Location Date Provider Diagnosis [facility] [address] [phone] 11/10/2024 R Perfecto Huitron Open wound of forehead, subsequent encounter S01.80XD ; Positive colorectal cancer screening using Cologuard test R19.5 and Cellulitis of forehead L03.211 Assessments Encounter Date Diagnosis (ICD Code) Assessment Notes Treatment Notes Treatment Clinical Notes Section Notes 11/10/2024 Open wound of forehead, subsequent encounter (ICD-10 - S01.80XD) 11/10/2024 Positive colorectal cancer screening using Cologuard test (ICD-10 - R19.5) He is agreeable to colonoscopy but will need to clear this with his safety person to be able to hold his aspirin and Plavix. 11/10/2024 Cellulitis of forehead (ICD-10 - L03.211) Improved Plan Of Treatment Treatment Notes Assessment Notes Positive colorectal cancer s creening using Cologuard test He is agreeable to colonoscopy but will need to clear this with his safety person to be able to hold his aspirin and Plavix. Cellulitis of forehead Improved Next Appt Details Follow Up: as scheduled, Mary son: Progress Notes * Tang SHORTDOB: [birth year] (54 yo M)Acc No.[id number]:11/10/2024 Progress Notes Patient: Tang CAMACHO Provider: Jessica Huitron M.D. :1970 A ge:54 Y S ex:Male Date:11/10/2024 Address:[place] [address], [place], [id number] Subjective: * Chief Complaints: * 1 . positive Cologuard. * HPI: G astroenterology: He had a recent positive Cologuard test and colonoscopy is recommended. However, he recently underwent left heart cath with stent placement 2 months ago. D ermatology: He is also here to follow-up on the scalp wound and cellulitis. * ROS: D ERMATOLOGY: no R benita. [...] 01/2023, Coronary stent x 2 - Tenzin 02/2024, Coronary stent x 2 - Tenzin 08/21/2024. * Hospitalization/Major Diagno stic Procedure: [facility] [place] - Sliced Finger w/ Metal Can Lid [...] day Orally Once a day , Taking Indomethacin 25 mg Capsule TAKE ONE CAPSULE BY MOUTH THREE TIMES DAILY , Taking Synjardy XR 12.5-1000 MG Tablet Extended Release 24 Hour 2 tabs Orally Once a day , Taking Clopidogrel Bisulfate 75 mg Tablet 1 tabler by mouth once , Taking Fenofibrate 160 MG Tablet 1 tablet Orally Once a day , Taking Mupirocin 2 % Ointment 1 application Externally Twice a day , Taking Cefdinir 300 MG Capsule 1 capsule Orally twice a day , Taking Bactrim DS 800-160 MG Tablet 1 tablet Orally twice a day , Taking Lidocaine 5 % Patch 1 to 3 patches remove after 12 hours Externally Once a day , Taking Medihoney Wound/Burn Dressing - Gel as directed Externally , Taking Lisinopril-hydroCHLOROthiazide 20-25 MG Tablet TAKE ONE TABLET BY MOUTH EVERY MORNING , Medication List reviewed and reconciled with the patient * Allergies: P enicillin. Objective: * Vitals: W t: 264, Temp: 97.5, BP: 120/80, HR: 77, Nurse: jhoan, Ht: 70.50, BMI:37.34. * Examination: D ermatology: T he wound on the left parietal area is healing well. There is still some postinflammatory hyperpigmentation but no drainage from the wound. Assessment: * Assessment: 1. P ositive colorectal cancer screening using Cologuard test - R19.5 (Primary) ?2. O pen wound of forehead, subsequent encounter - S01.80XD 3 . C ellulitis of forehead - L03.211 Plan: * Treatment: 2. C ellulitis of forehead Notes: Improved * Procedure Codes: 1 036F TOBACCO NON-USER, G8783 BP SCR PRFRM RCMDD DEFIND SCR INTVL, 3074F SYST BP LT 130 MM HG, 3079F DIAST BP 80-89 MM HG * Follow Up: a s scheduled * Images: Billing Information: * Visit Code: 77450 Office Visit, Est Pt., Level 3. * Procedure Codes: 1036F TOBACCO NON-USER. G8783 BP SCR PRFRM RCMDD DEFIND SCR INTVL. 3074F SYST BP LT 130 MM HG. 3079F DIAST BP 80-89 MM HG. * Electronic signature of Jessica Huitron MD on 02/22/2025 at 07:55 AM EST Sign off status: Pending * Provider: Jessica Huitron M.D. Date: 0 11/10/2024 Generated for Bryan herzog/Elias/Taishaitting on: 04/24/2024 07:55 AM EST History and Physical Notes * Examination Category Sub-Category Detail Notes Category Not es Dermatology The wound on th e left parietal area is healing well. There is still some postinflammatory hyperpigmentation but no drainage from the wound.
--- OUTSIDE RECORDS SUMMARY | 2025-01-05 11:45 | XMS_ITS ---
Author Organization [facility] Address [address] [place] [phone] Care Team Providers Care Gizzard Skin Remover Name Role Phone Jessica Huitron Primary Care Provider Allergies Allergen (clinical drug ingredient) Drug/Non Drug Allergy documented on EMR Reaction Allergy Type Onset Date Status Penicillin Unknown Drug Allergy Active Results Component Value Reference Range Notes H-Lipid Panel Reviewed date:01/07/2025 12:58:28 PM Interpretation: Performing Lab: Notes/Report: H-CMP Reviewed date:01/07/2025 12:58:37 PM Interpretation: Performing Lab: Notes/Report: H-Glycohemoglobin A1C Reviewed date:01/07/2025 12:58:51 PM Interpretation: Performing Lab: Notes/Report: H-Magnesium Reviewed date:01/07/2025 12:59:02 PM Interpretation: Performing Lab: Notes/Report: H-CRP Reviewed date:01/07/2025 12:59:15 PM Interpretation: Performing Lab: Notes/Report: REASON FOR VISIT Legs Weak Medications Medication SIG (Take, Route, Frequency, Duration) Notes Start Date End Date Status Clopidogrel Bisulfate 75 mg 1 tabler by mouth once; Duration: 90 days Active Synjardy XR 12.5-1000 MG 2 tabs Orally O nce a day; Duration: 90 days Active Lidocaine 5 % 1 to 3 patches remov e after 12 hours Externally Once a day 10/05/2024 Active Indomethacin 25 mg 1 capsule orally 3 times a day; Duration: 90 days Active Lisinopril-hydroCHLOROth iazide 20-25 MG TAKE ONE TABLET BY MOUTH EVERY MORNING; Duration: 30 Active Glimepiride 4 MG 1 tablet with breakfast or the first main meal of the day Orally Once a day; Duration: 90 days Active Valtrex 1 GM 2 tab(s) orally 2 times a day x 2 doses 11/10/2019 Active Accu-Chek SmartView 1 TEST STRIP(S) FINGERSTICK ONCE A DAY OR DIRECTED; Duration: 30 DAYS DX : E11.65 12/18/2018 Active Atorvastatin Calcium 80 MG 1 tablet Orally Once a day Active Nitroglycerin 0.4 mg DISSOLVE 1 TABLET UNDER THE TONGUE EVERY 5 MINUTES NEEDED FOR CHEST PAIN. DO NOT EXCEED A TOTAL OF 3 DOSES IN 15 MINUTES. IF NO RELIEF AFTER 3 DOSES CALL 911/GO TO ER; Duration: 10 Active Carvedilol 3.125 MG 1 tab(s) orally 2 times a day Active Mounjaro 2.5 MG/0.5ML as directed Subcutaneous Active Aspirin 81 MG 1 cap(s) orally ever y 4 hours Active GLUCOMETER DIRECTED TEST QD Active Amitriptyline HCl 25 MG 1 tablet at bedt matias Orally Once a day 01/05/2025 Active Fenofibrate 160 MG 1 tablet Orally Once a day; Duration: 90 days Active Lisinopril 20 MG 1 tablet at bedtime Orally daily; Duration: 90 days Active Social History Tobacco Use: Social History Observation Description Date Details (start date - stop date) Former Smoker NA - 05/09/2020 CURRENT TOBACCO USE: Question Answer Notes Are you a: former smoker When did you stop smoking? 05/09/2020 Vital Signs Weight 264 lbs 01/05/2025 Blood pressure systolic 124 mm Hg 01/06/20 25 Blood pressure diastolic 80 mm Hg 025 Heart Rate 82 /min 01/05/2025 Height 70.50 in 01/05/2025 BMI 37.34 kg/m2 01/05/2025 Encounters Encounter Location Date Provider Diagnosis [facility] [address] [facility] [address] [place], [place] [phone] 01/05/2025 R Perfecto Huitron Leg pain M79. 606 Assessments Encounter Date Diagnosis (ICD Code) Assessment Notes Treatment Notes Treatment Clinical Notes Section Notes 01/05/2025 Leg pain (ICD-10 - M79.606) Plan Of Treatment Medication Medication Name Sig Start Date Stop Date Notes Amitriptyline HCl 25 MG 1 tablet at bedt matias Orally Once a day 01/05/2025 Next Appt Details Follow Up: via phone to repo rt test results, Reason: Medications Administered Medication Instructions Date of Administration Dosage Notes Depo- Medrol 40 mg/ml 01/05/2025 1.5 mL Progress Notes * Tang SHORTDOB: [birth year] (54 yo M)Acc No.[id number]:01/05/2025 Progress Notes Patient: Tang CAMACHO Provider: Jessica Huitron M.D. :1970 A ge:54 Y S ex:Male Date:01/05/2025 Address: [address], [place], [id number] Subjective: * Chief Complaints: * 1 . Legs Weak. * HPI: L eg: He comes in complaining of bilateral leg pain that he localizes to the muscles rather than joints. This has been going on for 5 or 6 days. He notes that he has been doing some extra physical activity at work which may be contributing. He has had no specific injury. His legs sometimes feel like Jell-O . No significant back pain. Pain sometimes keeps him awake at night and he has to take get out of bed and walk around. He describes the pain as cramping and aching in nature. * ROS: D ERMATOLOGY: no R benita. [...] 08/21/2024. * Hospitalization/Major Diagno stic Procedure: H [facility] [...] day Orally Once a day , Taking Lidocaine 5 % Patch 1 to 3 patches remove after 12 hours Externally Once a day , Taking Lisinopril-hydroCHLOROthiazide 20-25 MG Tablet TAKE ONE TABLET BY MOUTH EVERY MORNING , Taking Indomethacin 25 mg Capsule 1 capsule orally 3 times a day , Taking Synjardy XR 12.5-1000 MG Tablet Extended Release 24 Hour 2 tabs Orally Once a day , Taking Clopidogrel Bisulfate 75 mg Tablet 1 tabler by mouth once , Taking Fenofibrate 160 MG Tablet 1 tablet Orally Once a day , Taking Lisinopril 20 MG Tablet 1 tablet at bedtime Orally daily , Medication List reviewed and reconciled with the patient * Allergies: P enicillin. Objective: * Vitals: W t: 264, Temp: 98.2, BP: 124/80, HR: 82, Nurse: SF, Ht: 70.50, BMI:37.34. * Examination: G eneral Examination: O r extremities show no edema. No acute joint swelling, redness, or warmth. He has a few small varicosities but no phlebitis. No muscle tenderness. Assessment: * Assessment: 1. L osiris pain - M79.606 (Primary) Plan: * Treatment: * Therapeutic Injections: Depo- Medrol 40 mg/ml : 1.5 mL (Route: Intramuscular) given by Shayy Branch on left gluteus (Leg pain) * Labs: * L ab: H-Lipid Panel (Collection Date & Time - 01/07/2025) ?Lab: H-Magnesium (Collection Date & Time - 01/07/2025)?Lab: H-CMP (Collection Date & Time - 01/07/2025)?Lab: H-CRP (Collection Date & Time - 01/07/2025)?Lab: H-Glycohemoglobin A1C (Collection Date & Time - 01/07/2025) * Procedure Codes: J 1010 Inj, methylpred acetate 1 mg, Units: 1.50 , 22521 ADMINISTRATION OF INJECTION, 1036F TOBACCO NON-USER, 3074F SYST BP LT 130 MM HG, 3079F DIAST BP 80-89 MM HG * Follow Up: v ia phone to report test results * Images: Billing Information: * Visit Code: 39875 Office Visit, Est Pt., Level 4. Modifiers: 25 * Procedure Codes: J1010 Inj, methylpred acetate 1 mg. Units: 1.50. 62820 ADMINISTRATION OF INJECTION. 1036F TOBACCO NON-USER. 3074F SYST BP LT 130 MM HG. 3079F DIAST BP 80-89 MM HG. * Electronic signature of Jessica Huitron MD on 02/22/2025 at 07:55 AM EST Sign off status: Pending * Provider: Jessica Huitron M.D. Date: 0 01/05/2025 Generated for Bryan herzog/Elias/Dee on: 1 04/24/2024 07:55 AM EST History and Physical Notes * Examination Category Sub-Category Detail Notes Category Not es General Examination Or extre mities show no edema. No acute joint swelling, redness, or warmth. He has a few small varicosities but no phlebitis. No muscle tenderness.
--- OUTSIDE RECORDS SUMMARY | 2025-01-20 12:30 | XMS_ITS | Encounter Summary ---
Author Organization [place] [address] Care Team Providers Care Board Operator Name Role Phone Gerber Dave MD Primary Care Provider [phone]- [phone] Reason for Visit * Reason Comments Diabetes Encounter Details Date Type Department Care Team (Latest Contact Info) Description 01/20/2025 1:30 PM EDT [facility] [address] [facility] [address] [place] [phone] Ron Celaya MD [address] [place] [address] Type 2 diabetes mellitus with hyperglycemia, without [...] PM EDT Subjective Subjective: Patient ID: Tang Corrigan is a 54 y.o. male. Chief Complaint [...] FREET4 1.29 02/12/2024 No results found for: [id number] No results found for: [id number] Vitals: 01/20/25 1322 BP: 122/80 Pulse: 96 [...] documented as of this encounter Care Teams Board Operator Relationship Specialty Start Date End Date Gerber Dave MD [address] [place], [place] [id number] PCP - General Internal Medicine-Cardiovascular Disease 05/31/22 documented as of this encounter
--- OUTSIDE RECORDS SUMMARY | 2025-02-22 07:54 | XMS_ITS | Clinical Summary ---
Author Organization [facility] Address [address] [place] [address] Care Team Providers Care Community Educator Name Role Phone Jagdish Mccormick MD Primary Care Provider [phone] Allergies Active Allergy Reactions Criticality Noted Date Comments Penicillins 02/29/2016 Medications lisinopril-hydroc hlorothiazide (PRINZIDE,ZESTORE TIC) 20-25 MG per tabletIndications :Essential hypertension Take 1 tablet by mouth Daily. 30 tablet 5 02/29/2016 Active amLODIPine (NORVASC) 5 MG tablet take 1 tablet by mouth once daily 30 tablet 05/08/2016 Active Active Problems Problem Noted Date Diagnosed Date Essential hypertension 02/29/2016 Assessment & Plan (03/06/2016 6:08 PM EST): Hypertension is better at times. Using wrist cuff. Increased in afternoons but has only been on this for 5-6 days. Continue current treatment regimen. Continue current medications. Blood pressure will be reassessed call next week with readings. He agrees. . Chronic midline low back pain with sciatica 02/13 Family History Medical History Relation Name Comments Hypertension Father Stroke Father COPD Mother Relation Name Status Comments Father Mother Social History Tobacco Use Types Packs/Day Years Used Date Smoking Tobacco: Every Day Cigarettes Alcohol Use Standard Drinks/Week Comments No 0 (1 standard drink = 0.6 oz pur e alcohol) Abuse Screen Answer Date Recorded Unsafe at Home or Work/School Not on file Feels Threatened by Someone? Not on file 11/2022 Does Anyone Keep You from Co ntacting Others or Doint Things Outside the Home? Not on file 01/20/2023 Physical Sign of Abuse Present Not on file 1 Housing Stability Answer Date Recorded Current Living Arrangements Not on file 11/2022 Potentially Unsafe Housing Conditions Not on fiona e 01/20/2023 Family and Community Support Answer Asif e Recorded Help with Day-to-Day Activities Not on file 01/20/2023 Lonely or Isolated Not on file 01/20/2023 Employment Answer Date Recorded Do you want help finding or keeping work or a bernie b? Not on file 01/20/2023 Disabilities Answer Date Recorded Concentrating, Remembering, or Making Decisions Difficulty Not on file 01/20/2023 Doing Errands Independently Difficulty Not on fi le 01/20/2023 Education Answer Date Recorded Help with school or training? Not on file Preferred Language Not on file 01/20/2023 Sex and Gender Information Value Date Recorded Sex Assigned at Not on file Legal Sex Male 12:11 PM EST Gender Identity Not on file Sexual Orientation Not on file Occupation Industry Job Start Date Job End Date Not on file Not on file Not on file Not on file Last Filed Vital Signs Vital Sign Reading Time Taken Comments Blood Pressure 110/78 03/06/2016 12:14 PM EST Pulse 77 03/06/2016 11:25 AM EST Temperature 36.5 C (97.7 F) 03/06/2016 11:25 AM EST Respiratory Rate 16 03/06/2016 11:25 AM EST Oxygen Saturation 98% 03/06/2016 11:25 AM EST Inhaled Oxygen Concentration - - Weight 120 kg (265 lb) 03/06/2016 11:25 AM EST Height 177.8 cm (5' 10 ) 03/06/2016 11:25 AM EST Body Mass Index 38.02 03/06/2016 11:25 AM EST Plan of Treatment Health Maintenance Due Date Last Done Comments TDAP/TD VACCINES (1 - Tdap) 10/20/1987 COLOGUARD 2013 COLON CANCER SCREENING 5 YEAR SIGMOIDOSCOPY 2013 COLONOSCOPY [address] CANCER SCREENING 2013 CT COLONOGRAPHY 2013 FECAL OCCULT BLOOD TEST 2013 FIT Testing (1 year) 2013 ANNUAL PHYSICAL 02/29/2016 HEPATITIS C SCREENING 02/29/2016 Pneumococcal Vaccine 50+ (1 of 1 - PCV) 2018 ZOSTER VACCINE (1 of 2) 2018 INFLUENZA VACCINE 11/13/2024 Care Teams Community Educator Relationship Specialty Start Date End Date Jagdish Mccormick MD [address] [place] [address] PCP - General Family Medicine 02/29/16
--- OUTSIDE RECORDS SUMMARY | 2025-02-22 07:55 | XMS_ITS | Encounter Summary ---
Author Organization [place] [address] Care Team Providers Care Descriptive Catalog Librarian Name Role Phone Gerber Dave MD Primary Care Provider [phone]- [phone] Reason for Visit * Reason Onset Date Comments Medication Management 01/08/2025 Encounter Details Date Type Department Care Team (Late st Contact Info) Description 01/08/2025 Telephone [facility] [address] [place] [phone] Ron Celaya MD [address] [place] [address] Medication Management Social History Tobacco Use Types [...] by his PCP, Dr. Perfecto Huitron with [facility] and wants to know if we can get his results. Dr. Huitron's phone number is [phone]. Also said Dr. Huitron told him that his A1C was 8 and wants to know if Dr. Celaya can increase his Mounjaro. Please advise patient. documented in this encounter Plan of Treatment Not on file documented as of this encounter Visit Diagnoses Not on filedocumented in this encounter Care Teams Descriptive Catalog Librarian Relationship Specialty Start Date End Date Gerber Dave MD [address] [place] [address] PCP - General Internal Medicine-Cardiovascular Disease 05/31/22 documented as of this encounter
--- OUTSIDE RECORDS SUMMARY | 2025-02-22 07:55 | XMS_ITS | Patient Health Record ---
Author Organization [facility] Address [address] [place] [id number] Care Team Providers Care Structural Engineering Project Manager Name Role Phone Jessica Huitron Primary Care Provider MontroseBin tran Unavailable [phone] Allergies Allergen (clinical drug ingredient) Drug/Non Drug [...] 193 Performing Lab: Notes/Report: Test performed by [facility], [facility] , [address], [place] [address] Dawood Bernabe MD, Furnace Installer CLIA: [id number] Sodium 141 135-145 mmol/L Potassium 4.1 3.5-5.3 [...] 24 Performing Lab: Notes/Report: Test performed by [facility], [address] , [place] [address] Dawood Bernabe MD, Furnace Installer CLIA: [id number] Cholesterol 86 <200 mg/dL Triglycerides 293 <150 [...] Interpretation:Normal Performing Lab: Notes/Report: Test performed by [facility], [address] , [address] , [place] [address] Dawood Bernabe MD, Furnace Installer CLIA: [id number] PSA 0.62 <4.00 ng/mL Please note this is an ultrasensitive PSA assay with a lower limit of detection of 0.014 ng/mL. This test is performed by the Sushma ECLIA methodology. Values obtained with different assay methods or kits cannot be directly compared. H-Glycohemoglobin A1C Reviewed date:01/07/2025 12:58:51 PM Interpretation: Performing Lab: Notes/Report: H-Magnesium Reviewed date:01/07/2025 12:59:02 PM Interpretation: Performing Lab: Notes/Report: H-CRP Reviewed date:01/07/2025 12:59:15 PM Interpretation: Performing Lab: Notes/Report: H-Glycohemoglobin A1C Reviewed date:01/08/2025 11:17:09 AM Interpretation:8.0% Performing Lab: Notes/Report: HGBA1C 8.0 4.0-6.0 % < 6% Non-Diabetic Level < 7% Controlled Diabetic Level > 8% Poorly Controlled Diabetic Level H-CRP Reviewed date:01/08/2025 11:17:09 AM Interpretation:2.2 Performing Lab: Notes/Report: CRP 2.2 0-4 mg/L H-CMP Reviewed date:01/07/2025 12:58:37 PM Interpretation: Performing Lab: Notes/Report: H-Lipid Panel Reviewed date:01/07/2025 12:58:28 PM Interpretation: Performing Lab: Notes/Report: H-Magnesium Reviewed date:01/08/2025 11:17:09 AM Interpretation:1.8 Performing Lab: Notes/Report: MG 1.8 1.6-2.3 mg/dl H-CMP Reviewed date:01/12/2025 08:40:55 AM Interpretation: Performing [...] AGRATIO 1.8 1.1-1.8 ALP 113 38-126 U/L H-Lipid Panel Reviewed date:01/08/2025 11:17:09 AM Interpretation:LDL [...] 211 74-100 mg/dl CA 9.4 8.4-10.2 mg/dl Cologuard Reviewed date:11/04/2024 01:07:34 PM Interpretation:Positive Performing Lab: Notes/Report: Positive Reason For Referral Reason [facility] wound care clini c, prefers latest possible appt. Diagnosis 1 Open wound of forehe ad, subsequent encounter (S01.80XD) Referral Organization [facility] Referring Provider First Name Bin Referring Provider Last Name Jose F Referring Provider Speciality Family Pra ctice Referred Provider [facility] Rehab, PT and Sp eech Referred Provider Specialty Unknown General Notes Zina Blackwood 2024 10:02:39 AM > faxed to [facility] PT Referral Priority Routine Medications Medication [...] Vaccine Route Administration Date Status Comme nts Tetanus Tdap-Adacel (over 7yrs) Unknown 12/09/2022 Administered Fluzone Quad (6months&older) IM Intramuscular 02/03/2016 Administered Social History Tobacco Use: Social History Observation Description Date Details (start date - stop date) Former Smoker NA - 05/09/2020 CURRENT TOBACCO USE: Question Answer Notes Are you a: former smoker When did you stop smoking? 05/09/2020 Problems Problem Type SNOMED Code ICD Code Onset Dates Problem Status W/U Status Risk Notes Problem Essential hypertension (74089142) Essential (primary) hypertension (I10) Active confirmed Problem Coronary arteriosclerosis (16758295) ASCVD (arteriosclerotic cardiovascular disease) (I25.10) Active confirmed Problem Essential hypertension (98130615) Essential hypertension (I10) Active confirmed Problem Hypertriglyceridemia (439058125) Hypertriglyceridemia (E78.1) Active confirmed Problem Lumbosacral spondylosis without myelopathy (37862131) Spondylosis of lumbar region without myelopathy or radiculopathy (M47.816) Active confirmed Problem Obstructive sleep apnea syndrome (49676403) ZIGGY (obstructive sleep apnea) (G47.33) Active confirmed Problem Obstructive sleep apnea syndrome (15928918) Sleep apnea in adult (G47.33) Active confirmed Problem STEMI - ST elevation myocardial infarction (224648724) ST elevation myocardial infarction (STEMI), unspecified artery (I21.3) Active confirmed Problem Localized, primary osteoarthritis of the pelvic region and thigh (431232087) Primary osteoarthritis of right hip (M16.11) Active confirmed Problem Dyslipidemia (340333391) Dyslipidemia (E78.5) Active confirmed Problem Type II diabetes mellitus without complication (202677544) Type 2 diabetes mellitus without complication, without long-term current use of insulin (E11.9) Active confirmed Problem Tobacco use (093240818) Tobacco use disorder (F17.200) Active confirmed Problem Hyperglycemia due to type 2 diabetes mellitus (178529172443720) Uncontrolled type 2 diabetes mellitus with hyperglycemia (E11.65) Active confirmed Vital Signs Heart Rate 82 /min 01/05/2025 Blood pressure diastolic 80 mm Hg 01/05/2025 Height 70.50 in 01/05/2025 Blood pressure systolic 124 mm Hg 01/05/2025 Weight 264 lbs 01/05/2025 BMI 37.34 kg/m2 01/05/2025 Encounters Encounter Location Date Provider Diagnosis [place] [address] [place] [id number] 05/26/2024 R Perfecto Tomy Dyslipidemia E78.5 ; Type 2 diabetes mellitus without complication, without long-term current use of insulin E11.9 ; Screening for prostate cancer Z12.5 ; Essential hypertension I10 ; ASCVD (arteriosclerotic cardiovascular disease) I25.10 ; Primary osteoarthritis of right hip M16.11 and ZIGGY (obstructive sleep apnea) G47.33 [facility] [address] [facility] [address] [place] [id number] 09/25/2024 Bin [place] Cellulitis of forehe ad L03.211 [facility] [address] [place] [id number] 09/28/2024 Bin [place] Cellulitis of forehe ad L03.211 and Open wound of forehead, initial encounter S01.80XA [facility] [address] [place] [id number] 10/05/2024 Bin [place] Open wound of forehe ad, subsequent encounter S01.80XD ; Cellulitis of forehead L03.211 and Low back pain, unspecified M54.50 [facility] 0 [facility] [address] [place] [id number] 11/10/2024 R Perfecto Tomy Open wound of forehe ad, subsequent encounter S01.80XD ; Positive colorectal cancer screening using Cologuard test R19.5 and Cellulitis of forehead L03.211 [facility]vin [address] [facility] [address] [place] [id number] 01/05/2025 R Perfecto Tomy Leg pain M79.606 [facility] [address] [place] [id number] 06/04/2024 R Perfecto Tomy Type 2 diabetes ana maria itus without complication, without long-term current use of insulin E11.9 [facility] [address] [facility] [address] [place] [id number] 09/24/2024 R Perfecto Tomy Type 2 diabetes ana maria itus without complication, without long-term current use of insulin E11.9 and Dyslipidemia E78.5 [facility] [address] [place], [place] [id number] 10/02/2024 Bin [place] Cellulitis of forehe ad L03.211 [facility] [address] [place], [place] [id number] 10/06/2024 R Perfecto Tomy [facility] [address] [place], [place] [id number] 10/06/2024 R Perfecto Tomy Screening for colon cancer Z12.11 [facility] [address] [place] [id number] 10/26/2024 R Perfecto Tomy Screening for colon cancer Z12.11 [facility] [address] [place], [place] [id number] 11/11/2024 R Perfecto Tomy [facility] [address] [place] [id number] 12/23/2024 R Perfecto Tomy [facility] [address] [place] [id number] 01/06/2025 R Perfecto Tomy [facility] [address] [place] [id number] 01/07/2025 R Perfecto Tomy [facility] [address] [place] [id number] 01/08/2025 R Perfecto Tomy [facility] [address] [place], [place] [id number] 01/12/2025 R Perfecto Tomy Assessments Encounter Date [...] 09/28/2024 Cellulitis of forehead (ICD-10 - L03.211) 10/02/2024 Cellulitis of forehead (ICD-10 - L03.211) 10/05/2024 Open wound of forehead, subsequent encounter (ICD-10 - S01.80XD) 10/05/2024 Cellulitis of forehead (ICD-10 - L03.211) Improved 10/06/2024 Screening for colon cancer (ICD-10 - Z12.11) 10/26/2024 Screening for colon cancer (ICD-10 - Z12.11) 11/10/2024 Open wound of forehead, subsequent encounter (ICD-10 - S01.80XD) 11/10/2024 Positive colorectal cancer screening using Cologuard test (ICD-10 - R19.5) He is agreeable to colonoscopy but 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 01/05/2025 Leg pain (ICD-10 - M79.606) 11/10/2024 Cellulitis of forehead (ICD-10 - L03.211) [...] Insured Coverage Start Date Coverage End Date [facility] [address] [place] [id number] Tang SHORT Self - patient is the [...] - Tenzin 08/21/2024 Hospitalization History Reason Date(Month/Year) [facility] - Sliced Finger w/ Metal Can Lid 11/2022
--- OUTSIDE RECORDS SUMMARY | 2025-02-22 07:55 | XMS_ITS | Encounter Summary ---
Author Organization [place] [address] Care Team Providers Care Slate Splitting Supervisor Name Role Phone Gerber Dave MD Primary Care Provider [phone]- [phone] Reason for Visit * Reason Onset Date Comments Reschedule 01/20/2025 Encounter Details Date Type Department Care Team (Late st Contact Info) Description 01/20/[address] [address] [facility] [address] [place] [id number] Ron Celaya MD [address] [place] [address] Reschedule Social History Tobacco Use Types Packs/Day [...] living out of town and working in [place] and pt Is getting out of work early and asked for sooner appt. documented in this encounter Plan of Treatment Not on file documented as of this encounter Visit Diagnoses Not on filedocumented in this encounter Care Teams Slate Splitting Supervisor Relationship Specialty Start Date End Date Gerber Dave MD [address] [place] [address] PCP - General Internal Medicine-Cardiovascular Disease 05/31/22 documented as of this encounter
--- OUTSIDE RECORDS SUMMARY | 2025-02-22 07:56 | XMS_ITS | Clinical Summary ---
Author Organization [facility] Address [address] [address] Care Team Providers Care Tobacco Conditioner Name Role Phone Unavailable Primary Care Provider [...] 2018 [facility]-Zoster Vaccines (1 of 2) 2018 LMR-EMLSK-07 Vaccine (1 - 20 24-25 season) 2024 [facility]-Influenza Vaccine (#1) 2024 HPV Vaccines Aged Out No longer [...] patient's age to complete this topic Insurance [facility]
--- OUTSIDE RECORDS SUMMARY | 2025-02-22 07:56 | XMS_ITS | Clinical Summary ---
Author Organization [facility] Address [address] [facility] [address] [place] [address] Phone Care Team Providers Care Lawn Technician Name Role Phone Gerber Dave MD Primary Care Provider +1- [phone] Allergies Active Allergy Reactions Criticality Noted Date [...] needed. Active Blood-Glucose Sensor (DEXCOM G7 SENSOR) [facility] DeviceIndications: Type 2 diabetes mellitus with hyperglycemia, without long-term current use of insulin (HCC),ASCVD (arteriosclerotic cardiovascular disease),Hypertens ion associated with type 2 diabetes mellitus (HCC),Hyperlipidem ia associated with type 2 diabetes mellitus (HCC),Class 2 severe obesity due to excess calories with serious comorbidity and body mass index (BMI) of 38.0 to 38.9 in adult 1 Each by [facility].(Non-Drug; Combo Route) route every 10 days. 3 [...] week. 2 mL 11 01/21/20 25 Active Active Problems Problem Noted Date [...] Description 01/20/2025 1:30 PM EDT Office Visit [place] [address] [facility] [address] [place] [phone] Ron Celaya MD Type 2 diabetes mellitus with hyperglycemia, without long-term current use of insulin (HCC) (Primary Dx); ASCVD (arteriosclerotic cardiovascular disease); Hypertension associated with type 2 diabetes mellitus (HCC); Hyperlipidemia associated with type 2 diabetes mellitus (HCC) 01/20/2025 Telephone [facility] [address] [facility] [address] [place] [address] Ron Celaya MD Reschedule 01/08/2025 Telephone [facility] [address] [facility] [address] [place] [address] Ron Celaya MD Medication Management from Last 3 Months [...] Zoster (1 of 2) 2018 COVID-19 Vaccine (1 - season) 2024 Influenza Vaccine (#1) 2024 02/03/2016 [facility]: uACR 02/11/2025 02/12/2024 Hemoglobin A1c 07/08/2025 01/08/2025, 06/3 , 07/08/2024, Additional history exists [facility]: eGFR [...] ORDERABLES Final R esult Performing Organization Address City/[facility] Co de Phone Number SEP OFFICE * C-REACTIVE PROTEIN (01/08/2025) C-Reactive Protein 2.2 MG/DL SEP OFFICE Blood VENOUS BLOOD / Unknown 01/08/2025 Historical Provider CHEMISTRY ORDERABLES Final R esult Performing Organization Address City/[facility] Co de Phone Number SEP OFFICE * MAGNESIUM LEVEL (01/08/2025) Magnesium [...] Comment:38-126 Blood VENOUS BLOOD / Unknown 01/08/2025 us Historical Provider CHEMISTRY ORDERABLES Final R esult SEP OFFICE * (ABNORMAL) BASIC METABOLIC PANEL [...] ORDERABLES Final R esult SEP OFFICE * MICROALBUMIN/CREATININE RATIO URINE (02/12/2024) Creatinine Urine 64 SEP OFFICE Albumin, Ur 10.200 <=31 MG/L SEP OFFICE Comment:0-16.7 Urine Microalb/Creat Ratio 15.9 MCG/MG CREAT. SEP OFFICE Comment:0-29 Urine URINE SPECIMEN COLLECTION / Unknown 02/12/2024 Ron Celaya MD URINE ORDERABLES Final Result Performing Organization Address City/State/[facility] Co de Phone Number SEP OFFICE from Last 3 Months or Most Recently Relevant to Health Maintenance Insurance [employer] [id number] [employer] [id number] Care Teams Lawn Technician Relationship Specialty Start Date End Date Gerber Dave MD [address] [facility] [place] [address] PCP - General Internal Medicine-Cardiovascular Disease 05/31/22
--- NOTE | 2025-02-22 08:00 | CA_ITS ---
APPROVED REPORT EXAM: Comprehensive 2D, Doppler, and color-flow Echocardiogram Javascript Front End Developer: Martha Haley RT(R) Ht: 5 ft 10 in Wt: 251lbs BSA: 2.30 BP: 102/70 mmHg Indications: chest pain, CAD, diabetes, ex smoker 2D Dimensions Left Atrium 3.59 cm M: 3.0 - 4.0 LVEF (Gray's) 52.10 % M: 52 - 72 LVOT 2.00 cm (M/F) 1.5-2.5 LV Volume 111.00 mL M: 62 - 150 LV Volume Index 48.3 mL/m2 M: 34 - 74 LA Volume 16.90 mL LA Volume Index 7.35 mL/m2 (M/F) 16-34 EF AP4 46.90 % EF AP2 55.2 % EF BP 52.1 % GL Strain -15.3 % M-Mode Dimensions RVDd 2.86 cm (0.9-2.6) LVDd 4.63 cm (3.5-5.7) Ao Diam 2.91 cm (2.0-3.7) LVDs 3.46 cm (3.5-5.7) IVSd 0.89 cm (0.6-1.1) PWd 0.89 cm (0.6-1.1) EF (Teich) 49.90% FS 25.30% EDV (Teich) 98.80 mL TAPSE 2.02 (<1.7) ESV (Teich) 49.50 mL LV Diastology E Decel Time 211 (160-240 msec) E/A Ratio 1.3 MED E' 10.1 (>= 7 cm/sec) E'/MED E' Ratio 9.44 (<= 14) LAT E' 10.8 (>= 10 cm/sec) E/LAT E' Ratio 8.82 (<= 14) Mitral Valve MV E Max Ash. 95.0 (40-130 cm/s) MV A Velocity 73.0 (40-130 cm/s) E/A Ratio 1.31 MV Decel. Time 211 (160-240 ms) Left Ventricle The left ventricle is normal size. Left ventricular systolic function is normal. The left ventricular ejection fraction is within the normal range. There is increased is mildly dilated. Left ventricular wall thickness. There is normal LV segmental wall motion. Transmitral Doppler flow pattern suggests impaired LV relaxation. LVEF is 55% Right Ventricle The right ventricle is normal size. The right ventricular systolic function is normal. Atria The left atrium size is normal. The right atrium size is normal. There is no color Doppler evidence of interatrial shunt. Aortic Valve The aortic valve is mildly thickened. There is no hemodynamically significant aortic valvular stenosis. Trace aortic regurgitation is present. Mitral Valve The mitral valve is normal in structure. No evidence of mitral valve stenosis. Mild mitral regurgitation is present. Tricuspid Valve The tricuspid valve leaflets are thin and pliable. Trace tricuspid regurgitation. There is insufficient TR jet to estimate RVSP. Pulmonic Valve The pulmonary valve is grossly normal in structure. Trace pulmonic valve regurgitation is present. Great Vessels The aortic root is normal in size. IVC is normal in size and collapses >50% with inspiration. Pericardium There is no pericardial effusion. Other Information Study Quality: Fair Conclusion Normal biventricular systolic function. Mild MR. Electronically signed by : Tete Crespo MD 02/28/2025 23:49:42
== END 2025-02-22 23:59 | disposition home or self-care (01) ==
LOC: RT 07:53
PROVIDERS: PCP Family Medicine; Visit Provider Nurse Practitioner
DX: I34.0 Nonrheumatic mitral (valve) insufficiency (principal); I25.118 Atherosclerotic heart disease of native coronary artery with other forms of angina pectoris; I51.89 Other ill-defined heart diseases; E11.9 Type 2 diabetes mellitus without complications; Z87.891 Personal history of nicotine dependence
CPT/HCPCS: 93306